=== PATIENT | female | born 1985 | race Caucasian/White ===

== ENCOUNTER 2022-05-22 14:10 | Inpatient (IN) ==
[2022-05-22] MEDS ORDERED: SODIUM CHLORIDE 0.9% 1000ML 500 ML IV ONE (14:31)
--- NOTE | 2022-05-22 14:37 | Emergency Department Note ---
Impression & Plan Left-sided weakness, Leukopenia ED Provider Note NAME: LIS VÁZQUEZ AGE: 36 SEX: F : 1985 ARRIVES VIA: Walk-In INFORMANT: Patient ED PROVIDER(S): Jovi Shelby DO CHIEF COMPLAINT: left sided weakness HPI: Patient is a 36-year-old female who went to bed last night around 9 PM. She had no issues prior to this. When she woke up this morning she noted that she was having left-sided arm and leg weakness. She could not walk. She became very anxious and worked up and started having chest pain and shortness of breath. This gradually improved. She denies any headache or change in vision. She is noticing some trouble talking. No dysuria, urgency, or frequency. She notes left-sided face does not feel normal. She has never had this before. No other medical problems. ROS: See above HPI for pertinent positives & negatives. A total of 10 systems reviewed and were otherwise negative. PAST MEDICAL HISTORY:See Below PAST SURGICAL HISTORY:See Below FAMILY HISTORY:See Below SOCIAL HISTORY:See Below HOME MEDICATIONS:See Below ALLERGIES:See Below VITALS:See Below PHYSICAL EXAMINATION: GENERAL: Sitting up in bed, alert, well appearing, well nourished, no distress, non-toxic EYE EXAM: normal conjunctiva. OROPHARYNX: no exudate, no erythema, lips, buccal mucosa, and tongue normal and mucous membranes are moist NECK: supple, no nuchal rigidity, no adenopathy, non-tender LUNGS: Clear to auscultation. Normal chest wall mechanics HEART: no murmurs, S1 normal and S2 normal ABDOMEN: abdomen soft, non-tender, normo-active bowel sounds, no masses, no rebound or guarding. UPPER EXTREMITIES: upper extremities are grossly normal. LOWER EXTREMITIES: No pitting edema. NEURO EXAM: Normal sensorium, cranial nerves II-XII intact, normal speech, with left upper and left lower extremity strength is a 4/5. Paresthesias on the left side of face MEDICAL DECISION MAKING: Patient is a 36-year-old female who presents the ER for left-sided weakness which was present when she woke up this morning. She went to bed around 9:00 last night. IVs were established blood work was obtained. Labs show mild leukopenia 4000. No significant anemia. INR was unremarkable. BMP along with LFTs bilirubin and was negative. was negative. Patient was updated bedside. Discussed with the hospitalist and admitted for further work-up. Not a TNKase candidate due to prolonged duration and CT angios of the head and neck were negative for any LVO. Triage Nursing notes reviewed. Limited review of prior medical records performed Vital Signs: reviewed and remarkable for hypotension Differential diagnosis: Differential Diagnosis includes but is not limited to ischemic Stroke, hemorrhagic stroke, bells palsy, mass, neoplasm, migraine headache, seizure, subarachnoid hemorrhage, TIA, and transient global amnesia. ER treatment provided: See below Diagnostics interpreted by me: ECG: Sinus rhythm rate 68 Normal axis No PVCs T wave version V1 V2 QTC 414 Cardiac Monitoring: An order was placed for continuous cardiac monitoring. The monitor shows a rate of 70 with sinus rhythm. Laboratory studies: As stated above and show below. Imaging studies: CT angio head and neck were negative Consultation(s): Discussed with [facility] hospitalist for further evaluation Dr. Pinzon Procedures: none Critical Care: None Past Med/Surg History Surgical History (Updated 05/22/22 @ 17:08 by Daisy Rubi PA-C) No history of previous surgery Family History Father Diabetes Social History Smoking Status: Never smoker Preferred Language: Portuguese Feels Safe at Home: Yes Allergies Allergies Allergy/AdvReac Type Severity Reaction Status Date / Time No Known Allergies Allergy Unverified 05/22/22 15:30 Home Meds Home Medications Medication Instructions Recorded Confirmed No Known Home Medications 01/04/22 05/22/22 Results & Data (ED) Vital Signs Vital Signs - 24 hr 05/22/22 14:13 05/22/22 14:57 05/22/22 14:57 Temperature 37.3 C Temperature Source Temporal Artery Scan Pulse Rate 74 Pulse Rate [Apical] 70 Pulse Rhythm [Apical] Pulse Strength [Apical] Respiratory Rate 18 20 Respiratory Effort / Characteristics Non-Labored Respiratory Depth Normal Respiratory Pattern Regular Blood Pressure 98/71 L Blood Pressure [Right Arm] 113/79 Blood Pressure Mean 80 Blood Pressure Mean [Right Arm] 90 Pulse Oximetry 96 96 96 Oxygen Delivery Method Room Air Room Air Room Air Sepsis Recent Fever Within 48 Hours No Sepsis New/Unexplained Change in Mental Status No Sepsis Action Taken by Nursing No Action Required 05/22/22 16:00 05/22/22 17:30 05/22/22 20:40 Temperature Temperature Source Pulse Rate Pulse Rate [Apical] 67 67 63 Pulse Rhythm [Apical] Regular Pulse Strength [Apical] Normal Respiratory Rate 16 18 14 Respiratory Effort / Characteristics Non-Labored Spontaneous Respiratory Depth Normal Respiratory Pattern Regular Blood Pressure Blood Pressure [Right Arm] 113/79 112/77 112/71 Blood Pressure Mean Blood Pressure Mean [Right Arm] 90 88 84 Pulse Oximetry 97 96 97 Oxygen Delivery Method Room Air Sepsis Recent Fever Within 48 Hours Sepsis New/Unexplained Change in Mental Status Sepsis Action Taken by Nursing Laboratory Data Result diagrams: 05/22/22 14:40 05/22/22 14:40 Lab Results 05/22/22 05/22/22 05/22/22 Range/Units 14:40 14:40 14:40 WBC 4.75 L (4.8-10.8) K/ul RBC 4.57 (3.93-5.22) M/uL Hgb 13.9 (12.0-16.0) g/dl POC Hgb (12.0-16.0) g/dl Hct 39.8 (34.1-44.9) % POC Hct (37-47) % MCV 87.1 (80.0-100.0) fL MCH 30.4 (25.0-34.0) pg MCHC 34.9 (32.0-36.0) g/dL RDW Std Deviation 40.1 (36.4-46.3) fL RDW Coeff of Belia 12.5 (11.5-14.5) % Plt Count 273 (130-400) K/uL MPV 9.6 (9.4-12.3) fL Immature Gran % (Auto) 0.0 % Neut % (Auto) 58.0 % Lymph % (Auto) 30.3 % [place] % (Auto) 7.2 % Eos % (Auto) 3.4 % Baso % (Auto) 1.1 % Neut # (Auto) 2.76 (1.4-6.5) K/uL Lymph # (Auto) 1.44 (1.2-3.4) K/uL [place] # (Auto) 0.34 (0.24-0.82) K/uL Eos # (Auto) 0.16 (0-0.50) K/uL Baso # (Auto) 0.05 (0-0.2) K/uL Immature Gran # (Auto) 0.00 (0.00-0.02) K/uL PT 11.0 (9.0-12.0) Seconds INR 1.0 (0.9-1.1) APTT 25.0 (21.0-31.0) Seconds PTT Ratio 0.9 POC Sodium (135-144) mmol/L Sodium 139 (136-145) mmol/L POC Potassium (3.3-5.0) mmol/L Potassium 4.1 (3.5-5.1) mmol/L POC Chloride (101-112) mmol/L Chloride 103 (98-107) mmol/L Carbon Dioxide 28 (21-32) mmol/L POC Total CO2 (24-31) mmol/L Anion Gap 8 (3-11) POC Anion Gap (16-25) mmol/L POC BUN (7-18) mg/dl BUN 13 (6-23) mg/dl Creatinine 0.71 (0.6-1.2) mg/dl POC Creatinine (0.6-1.3) mg/dl Est Cr Clr Drug Dosing 116.7 ml/min Est GFR ( Amer) 128.8 ml/min Est GFR (Non-Af Amer) 111.1 ml/min BUN/Creatinine Ratio 18.3 (10-20) Glucose 96 (70-99(Fasting)) mg/dl POC Glucose (other) (70-99) mg/dl Calcium 10.0 (8.5-10.1) mg/dl POC Ioniz Calcium Yeimy (1.12-1.32) mmol/l Magnesium 2.1 (1.7-2.4) mg/dl Total Bilirubin 0.5 (0.2-1.0) mg/dl AST 21 (13-39) U/L ALT 28 (7-52) U/L Alkaline Phosphatase 70 (34-104) U/L Troponin I High Sens < 2.3 (0-14) pg/ml Total Protein 8.2 (6.0-8.3) gm/dl Albumin 4.7 (3.4-5.0) gm/dl Globulin 3.5 (2.5-4.0) gm/dl Albumin/Globulin Ratio 1.3 (0.9-2) Urine Test (Negative) Anaplasma Smear Babesia Smear Lyme Disease IgG Ab (Negative) Lyme Disease IgM Ab (Negative) SARS-CoV-2, RNA, NAAT 05/22/22 05/22/22 05/22/22 Range/Units 14:40 14:40 14:42 WBC (4.8-10.8) K/ul RBC (3.93-5.22) M/uL Hgb (12.0-16.0) g/dl POC Hgb 13.9 (12.0-16.0) g/dl Hct (34.1-44.9) % POC Hct 41 (37-47) % MCV (80.0-100.0) fL MCH (25.0-34.0) pg MCHC (32.0-36.0) g/dL RDW Std Deviation (36.4-46.3) fL RDW Coeff of Belia (11.5-14.5) % Plt Count (130-400) K/uL MPV (9.4-12.3) fL Immature Gran % (Auto) % Neut % (Auto) % Lymph % (Auto) % [place] % (Auto) % Eos % (Auto) % Baso % (Auto) % Neut # (Auto) (1.4-6.5) K/uL Lymph # (Auto) (1.2-3.4) K/uL [place] # (Auto) (0.24-0.82) K/uL Eos # (Auto) (0-0.50) K/uL Baso # (Auto) (0-0.2) K/uL Immature Gran # (Auto) (0.00-0.02) K/uL PT (9.0-12.0) Seconds INR (0.9-1.1) APTT (21.0-31.0) Seconds PTT Ratio POC Sodium 141 (135-144) mmol/L Sodium (136-145) mmol/L POC Potassium 4.0 (3.3-5.0) mmol/L Potassium (3.5-5.1) mmol/L POC Chloride 102 (101-112) mmol/L Chloride (98-107) mmol/L Carbon Dioxide (21-32) mmol/L POC Total CO2 28 (24-31) mmol/L Anion Gap (3-11) POC Anion Gap 16.0 (16-25) mmol/L POC BUN 12 (7-18) mg/dl BUN (6-23) mg/dl Creatinine (0.6-1.2) mg/dl POC Creatinine 0.7 (0.6-1.3) mg/dl Est Cr Clr Drug Dosing ml/min Est GFR ( Amer) ml/min Est GFR (Non-Af Amer) ml/min BUN/Creatinine Ratio (10-20) Glucose (70-99(Fasting)) mg/dl POC Glucose (other) 102 H (70-99) mg/dl Calcium (8.5-10.1) mg/dl POC Ioniz Calcium Yeimy 1.22 (1.12-1.32) mmol/l Magnesium (1.7-2.4) mg/dl Total Bilirubin (0.2-1.0) mg/dl AST (13-39) U/L ALT (7-52) U/L Alkaline Phosphatase (34-104) U/L Troponin I High Sens (0-14) pg/ml Total Protein (6.0-8.3) gm/dl Albumin (3.4-5.0) gm/dl Globulin (2.5-4.0) gm/dl Albumin/Globulin Ratio (0.9-2) Urine Test (Negative) Anaplasma Smear See Comment Babesia Smear See Comment Lyme Disease IgG Ab Negative (Negative) Lyme Disease IgM Ab Equivocal A (Negative) SARS-CoV-2, RNA, NAAT 05/22/22 05/22/22 05/22/22 Range/Units 15:05 15:57 17:25 WBC (4.8-10.8) K/ul RBC (3.93-5.22) M/uL Hgb (12.0-16.0) g/dl POC Hgb (12.0-16.0) g/dl Hct (34.1-44.9) % POC Hct (37-47) % MCV (80.0-100.0) fL MCH (25.0-34.0) pg MCHC (32.0-36.0) g/dL RDW Std Deviation (36.4-46.3) fL RDW Coeff of Belia (11.5-14.5) % Plt Count (130-400) K/uL MPV (9.4-12.3) fL Immature Gran % (Auto) % Neut % (Auto) % Lymph % (Auto) % [place] % (Auto) % Eos % (Auto) % Baso % (Auto) % Neut # (Auto) (1.4-6.5) K/uL Lymph # (Auto) (1.2-3.4) K/uL [place] # (Auto) (0.24-0.82) K/uL Eos # (Auto) (0-0.50) K/uL Baso # (Auto) (0-0.2) K/uL Immature Gran # (Auto) (0.00-0.02) K/uL PT (9.0-12.0) Seconds INR (0.9-1.1) APTT (21.0-31.0) Seconds PTT Ratio POC Sodium (135-144) mmol/L Sodium (136-145) mmol/L POC Potassium (3.3-5.0) mmol/L Potassium (3.5-5.1) mmol/L POC Chloride (101-112) mmol/L Chloride (98-107) mmol/L Carbon Dioxide (21-32) mmol/L POC Total CO2 (24-31) mmol/L Anion Gap (3-11) POC Anion Gap (16-25) mmol/L POC BUN (7-18) mg/dl BUN (6-23) mg/dl Creatinine (0.6-1.2) mg/dl POC Creatinine (0.6-1.3) mg/dl Est Cr Clr Drug Dosing ml/min Est GFR ( Amer) ml/min Est GFR (Non-Af Amer) ml/min BUN/Creatinine Ratio (10-20) Glucose (70-99(Fasting)) mg/dl POC Glucose (other) (70-99) mg/dl Calcium (8.5-10.1) mg/dl POC Ioniz Calcium Yeimy (1.12-1.32) mmol/l Magnesium (1.7-2.4) mg/dl Total Bilirubin (0.2-1.0) mg/dl AST (13-39) U/L ALT (7-52) U/L Alkaline Phosphatase (34-104) U/L Troponin I High Sens (0-14) pg/ml Total Protein (6.0-8.3) gm/dl Albumin (3.4-5.0) gm/dl Globulin (2.5-4.0) gm/dl Albumin/Globulin Ratio (0.9-2) Urine Test Negative (Negative) Anaplasma Smear Babesia Smear Lyme Disease IgG Ab (Negative) Lyme Disease IgM Ab (Negative) SARS-CoV-2, RNA, NAAT Cancelled NEGATIVE Administered Medications Discontinued Medications Sodium Chloride (Nss 1000ml) 500 mls @ 999 mls/hr IV .Q31M ONE Stop: 05/22/22 15:01 Last Infusion: 05/22/22 16:00 Dose: 0 mls/hr Documented By: Admin: 05/22/22 15:04 Dose: 999 mls/hr Documented By: KENNETH Sodium Chloride (Nss 1000ml) 1,000 mls @ 999 mls/hr IV .Q1H1M ONE Stop: 05/22/22 15:43 Last Infusion: 05/22/22 16:00 Dose: 0 mls/hr Documented By: Admin: 05/22/22 15:05 Dose: 999 mls/hr Documented By: KENNETH Ioversol (Optiray 320 125ml) 119 ml IV ONCE ONE Stop: 05/22/22 14:46 Last Admin: 05/22/22 14:47 Dose: 119 ml Documented By: BOB Imaging Data Radiologist's Impression: Chest X-Ray 05/22/22 14:31 XR chest 1V portable CLINICAL HISTORY: Stroke Like Symptoms. Left-sided weakness COMPARISON STUDY: 07/16/2011 TECHNIQUE: 1 view of the chest FINDINGS: Single frontal view of the chest demonstrates the cardiomediastinal silhouette to be within normal limits. The lungs are clear of alveolar opacities. There is no evidence for pleural effusion. There is no evidence for vascular congestion. There is no acute osseous pathology. IMPRESSION: 1. No acute cardiopulmonary disease. ACT 112: Negative or not required by law. Electronically signed by: Andrew Nicholas M.D. 05/22/2022 3:[address] 05/22/22 14:31 CT head/brain wo con CLINICAL HISTORY: Stroke Like Symptoms . Left-sided weakness and left facial droop COMPARISON STUDY: No previous studies for comparison. CT DOSE: TECHNIQUE: Standard CT of the Brain was performed without IV contrast. A dose lowering technique was utilized adhering to the principles of ALARA. FINDINGS: Extraaxial space: There is no evidence for subdural hematoma. There are no extra-axial fluid collections. Ventricles and cisterns: The ventricles are normal in size and configuration. There is no evidence for midline shift or mass effect. Parenchyma: There is no subarachnoid or intraparenchymal hemorrhage. There is no evidence for an acute infarct or cerebral edema. There is homogeneous attenuation of the brain parenchyma. There are no gross mass lesions. Osseous structures: There is no evidence for an acute fracture. The visualized paranasal sinuses are clear. The mastoid air cells are clear bilaterally. Soft tissues: There is no evidence for focal soft tissue swelling. IMPRESSION: 1. No acute intracerebral pathology. ACT 112: Negative or not required by law. Electronically signed by: Andrew Nicholas M.D. 05/22/2022 3:02 PM Head CTA 05/22/22 14:31 CT angio neck with con, CT angio head w con CLINICAL HISTORY: 36 years-old Female with Stroke Like Symptoms. Acute strokelike symptoms COMPARISON STUDY: Head CT 05/22/2022, 01/04/2022 TECHNIQUE: Following the IV administration of 119 mL of Optiray, CT angiogram of the head and neck was performed from the aortic arch to the skull base. Images are reviewed in the axial, sagittal, and coronal planes. 3-D MIPS images are created and assessed. IV contrast was administered without complication. All measurements were calculated based on NASCET criteria. A dose lowering technique was utilized adhering to the principles of ALARA. CT DOSE: 963.82 mGy.cm FINDINGS: Patent innominate and imaged subclavian arteries. The common and internal carotid arteries are widely patent. The middle and anterior cerebral arteries are widely patent. Developmentally diminutive right A1 segment. The vertebral arteries are patent bilaterally. The basilar and posterior cerebral arteries are widely patent. origin of the right posterior cerebral artery. No aneurysm, dissection, high-grade stenosis or arterial occlusion. The cerebral venous sinuses are widely patent. There is no abnormal intracranial enhancement. The lung apices are clear without pneumothorax. Unremarkable soft tissues. The patient is edentulous. No acute fracture. Straightening of the normal cervical lordosis. IMPRESSION:Unremarkable CTA of the head and neck. ACT 112: Negative or not required by law. The above report was generated using voice recognition software. It may contain grammatical, syntax or spelling errors. Electronically signed by: Graeme Ellington M.D. 05/22/2022 3:15 PM Neck CTA 05/22/22 14:31 CT angio neck with con, CT angio head w con CLINICAL HISTORY: 36 years-old Female with Stroke Like Symptoms. Acute strokelike symptoms COMPARISON STUDY: Head CT 05/22/2022, 01/04/2022 TECHNIQUE: Following the IV administration of 119 mL of Optiray, CT angiogram of the head and neck was performed from the aortic arch to the skull base. Images are reviewed in the axial, sagittal, and coronal planes. 3-D MIPS images are created and assessed. IV contrast was administered without complication. All measurements were calculated based on NASCET criteria. A dose lowering technique was utilized adhering to the principles of ALARA. CT DOSE: 963.82 mGy.cm FINDINGS: Patent innominate and imaged subclavian arteries. The common and internal carotid arteries are widely patent. The middle and anterior cerebral arteries are widely patent. Developmentally diminutive right A1 segment. The vertebral arteries are patent bilaterally. The basilar and posterior cerebral arteries are widely patent. origin of the right posterior cerebral artery. No aneurysm, dissection, high-grade stenosis or arterial occlusion. The cerebral venous sinuses are widely patent. There is no abnormal intracranial enhancement. The lung apices are clear without pneumothorax. Unremarkable soft tissues. The patient is edentulous. No acute fracture. Straightening of the normal cervical lordosis. IMPRESSION:Unremarkable CTA of the head and neck. ACT 112: Negative or not required by law. The above report was generated using voice recognition software. It may contain grammatical, syntax or spelling errors. Electronically signed by: Graeme Ellington M.D. 05/22/2022 3:15 PM Discharge Plan Visit Data Chief Complaint: Stroke/CVA Symptoms Stated Complaint: SOB ED Provider: Jovi Shelby Discharge Problem: Left-sided weakness, Leukopenia Forms Stand Alone Forms: [employer] Prescriptions Prescriptions: No Action No Known Home Medications Referrals Referrals: PCP,NO [Primary Care Provider] -
[2022-05-22] MEDS ORDERED: SODIUM CHLORIDE 0.9% 1000ML 1,000 ML IV ONE (14:43)
[2022-05-22] MEDS ORDERED: OPTIRAY 320 125ml IV ONE (14:45)
[2022-05-22 14:50] LABS: Basophils # (auto) 0.05 K/uL (0-0.2); Basophils % (auto) 1.1 %; Eosinophils # (auto) 0.16 K/uL (0-0.50); Eosinophils % (auto) 3.4 %; Hematocrit (blood only) 39.8 % (34.1-44.9); Hemoglobin 13.9 g/dl (12.0-16.0); Lymphocytes # (auto) 1.44 K/uL (1.2-3.4); Lymphocytes % (auto) 30.3 %; Mean Corpuscular Hemoglobin 30.4 pg (25.0-34.0); Mean Corpuscular Hgb Conc 34.9 g/dL (32.0-36.0); Mean Corpuscular Volume 87.1 fL (80.0-100.0); Mean Platelet Volume 9.6 fL (9.4-12.3); Monocytes # (auto) 0.34 K/uL (0.24-0.82); Monocytes % (auto) 7.2 %; Neutrophils # (auto) 2.76 K/uL (1.4-6.5); Platelet Count 273 K/uL (130-400); RDW Coefficient of Variation 12.5 % (11.5-14.5); RDW Standard Deviation 40.1 fL (36.4-46.3); Red Blood Count 4.57 M/uL (3.93-5.22); White Blood Count 4.75 K/ul (4.8-10.8)
[2022-05-22 14:54] LABS: iSTAT Creatinine 0.7 mg/dl (0.6-1.3); iSTAT Hemoglobin 13.9 g/dl (12.0-16.0); iSTAT Ionized Calcium 1.22 mmol/l (1.12-1.32)
--- NOTE | 2022-05-22 15:05 | CT Scan Report ---
CT head/brain wo con CLINICAL HISTORY: Stroke Like Symptoms . Left-sided weakness and left facial droop COMPARISON STUDY: No previous studies for comparison. CT DOSE: TECHNIQUE: Standard CT of the Brain was performed without IV contrast. A dose lowering technique was utilized adhering to the principles of ALARA. FINDINGS: Extraaxial space: There is no evidence for subdural hematoma. There are no extra-axial fluid collecti ons. Ventricles and cisterns: The ventricles are normal in size and configuration. There is no evidence fo r midline shift or mass effect. Parenchyma: There is no subarachnoid or intraparenchymal hemorrhage. There is no evidence for an acut e infarct or cerebral edema. There is homogeneous attenuation of the brain parenchyma. There are no g ross mass lesions. Osseous structures: There is no evidence for an acute fracture. The visualized paranasal sinuses are clear. The mastoid air cells are clear bilaterally. Soft tissues: There is no evidence for focal soft tissue swelling. IMPRESSION: 1. No acute intracerebral pathology. ACT 112: Negative or not required by law. Electronically signed by: Andrew Nicholas M.D. 05/22/2022 3:02 PM
--- NOTE | 2022-05-22 15:05 | XRay Report ---
XR chest 1V portable CLINICAL HISTORY: Stroke Like Symptoms. Left-sided weakness COMPARISON STUDY: 07/16/2011 TECHNIQUE: 1 view of the chest FINDINGS: Single frontal view of the chest demonstrates the cardiomediastinal silhouette to be within normal li mits. The lungs are clear of alveolar opacities. There is no evidence for pleural effusion. There is no evidence for vascular congestion. There is no acute osseous pathology. IMPRESSION: 1. No acute cardiopulmonary disease. ACT 112: Negative or not required by law. Electronically signed by: Andrew Nicholas M.D. 05/22/2022 3:03 PM
[2022-05-22 15:09] LABS: Partial Thromboplastin Ratio 0.9
--- NOTE | 2022-05-22 15:16 | CT Scan Report ---
CT angio neck with con, CT angio head w con CLINICAL HISTORY: 36 years-old Female with Stroke Like Symptoms. Acute strokelike symptoms COMPARISON STUDY: Head CT 05/22/2022, 01/04/2022 TECHNIQUE: Following the IV administration of 119 mL of Optiray, CT angiogram of the head and neck wa s performed from the aortic arch to the skull base. Images are reviewed in the axial, sagittal, and c oronal planes. 3-D MIPS images are created and assessed. IV contrast was administered without complic ation. All measurements were calculated based on NASCET criteria. A dose lowering technique was util ized adhering to the principles of ALARA. CT DOSE: 963.82 mGy.cm FINDINGS: Patent innominate and imaged subclavian arteries. The common and internal carotid arteries are widely patent. The middle and anterior cerebral arteries are widely patent. Developmentally diminutive righ t A1 segment. The vertebral arteries are patent bilaterally. The basilar and posterior cerebral arter ies are widely patent. origin of the right posterior cerebral artery. No aneurysm, dissection, high-grade stenosis or arterial occlusion. The cerebral venous sinuses are widely patent. There is no abnormal intracranial enhancement. The lung apices are clear without pneumothorax. Unremarkable soft tissues. The patient is edentulous. No acute fracture. Straightening of the normal cervical lordosis. IMPRESSION:Unremarkable CTA of the head and neck. ACT 112: Negative or not required by law. The above report was generated using voice recognition software. It may contain grammatical, syntax o r spelling errors. Electronically signed by: Graeme Ellington M.D. 05/22/2022 3:15 PM
[2022-05-22 15:20] LABS: Troponin I High Sensitivity < 2.3 pg/ml (0-14)
[2022-05-22 15:23] LABS: Alanine Aminotransferase 28 U/L (7-52); Albumin Globulin Ratio 1.3 (0.9-2); Albumin Level 4.7 gm/dl (3.4-5.0); Alkaline Phosphatase 70 U/L (34-104); Anion Gap 8 (3-11); Aspartate Aminotransferase 21 U/L (13-39); BUN Creatinine Ratio 18.3 (10-20); Bilirubin,Total 0.5 mg/dl (0.2-1.0); Blood Urea Nitrogen 13 mg/dl (6-23); Carbon Dioxide 28 mmol/L (21-32); Chloride 103 mmol/L (98-107); Creatinine Clr Calc Pharmacy 116.7 ml/min; Est GFR (African American) 128.8 ml/min; Est GFR (Non-African American) 111.1 ml/min; Globulin 3.5 gm/dl (2.5-4.0); Glucose 96 mg/dl (70-99(Fasting)); Magnesium 2.1 mg/dl (1.7-2.4); Potassium 4.1 mmol/L (3.5-5.1); Sodium 139 mmol/L (136-145); Total Protein 8.2 gm/dl (6.0-8.3)
--- NOTE | 2022-05-22 16:55 | History & Physical Report ---
Date of Service May 22, 2022 Assessment & Plan (1) Seizure disorder: (2) Left-sided weakness: (3) Joint pain: (4) Lymphopenia: Plan: - Admit to PCU for observation - Stroke order set completed, no indication for thrombolytic as occurred sometime hours before 10am today. - CTA head and neck reviewed and are negative for acute findings - MRI brain w/wo contrast ordered - Check 2D echo complete - Neurology consulted, will start on aspirin 81 mg daily, check lipid panel and a1c for completeness - Concern for tick borne illnesses with lymphopenia, no thrombocytopenia, with joint tenderness. No other acute lab abnormalities - Neurology consulted - Hx of seizure disorder as per HPI concerning as she has had 2 seizures within the past 4 weeks. Does not take any antiepileptic medication, nor has sought out medical care for seizure in the past. Will await neuro recs regarding medication and if the pt willing to take this/affordable - Check EEG - Fall precautions, seizure precautions - PT/OT consults placed DVT ppx - teds, scds CODE: DNR/DNI Dispo: From home, likely to remain in the hospital x 1-2 days History of Present Illness Primary Care Provider: NO PCP This is a 36 yo Episcopal female with PMhx of seizure disorder since age 4, not on any medication and has not seen a general practitioner for such. She had a period of time where she didn't have any seizures until being in her 20s. Most recently she experience a seizure 4 and 2 weeks ago where she remained at home. After both episodes she was unable to walk for about 3-3.5 hours. She is tired and feels ill, then slowly returns to her normal self. This morning the patient woke up and didn't feel herself. Her mother, Yolanda, is present at bedside and helps provide history. Pt took a nap this morning and around 10 am woke up again and reported not feeling right, at that point she was having chest pain, the left arm hurt, and left leg hurt and still does. She reports is as a 9/10 and constant, worse with movement. Her joints also hurt moreso than her muscles. Pt denies recent tick bite, last known was around age 22-23. She seems to have difficulty understanding [place] or at least saying things in [place] back to providers in the room. Family Hx: no known history of seizure disorders, cancers, heart disease, or strokes. Father recently diagnosed with diabetes. Surgical Hx: No surgical hx Allergies Allergy/AdvReac Type Severity Reaction Status Date / Time No Known Allergies Allergy Unverified 05/22/22 15:30 Home Medications Medication Instructions Recorded Confirmed Type No Known Home Medications 01/04/22 05/22/22 History Past Med/Surg History Surgical History (Updated 05/22/22 @ 17:08 by Daisy Rubi PA-C) No history of previous surgery Family History Father Diabetes Social History Smoking Status: Never smoker Preferred Language: C[place]ra[place] Feels Safe at Home: Yes Review of Systems Review of Systems: Constitutional: No fever, sweats or chills, no recent viral illnesses, no headache Eyes: No diplopia, no worsening or blurred vision ENT: normal hearing, no trouble swallowing Respiratory: No cough, sputum, dyspnea at rest or on exertion Cardiovascular: No chest pain, tightness or palpitations Abdomen: No pain, nausea, vomiting, diarrhea or constipation Musculoskeletal: + Diffuse left sided joint pain in shoulders, elbow, hip, knee and ankle. No calf pain or swelling Neurologic: + left sided weakness, difficulty moving extremities due to pain as well, no numbness/tingling, difficulty walking due to pain, no balance problems Psychiatric: No anxiety or depression Skin: No rash or itch Physical Exam Physical Exam: General: awake, alert, no apparent distress, Episcopal Head: Normocephalic, atraumatic ENT: PERRL, EOMI, no pharyngeal exudate, mucous membranes moist Chest: Please see attending addendum Cardiac: " Abdominal: " Extremities: Normal inspection, no peripheral edema or erythema, calfs nontender to palpation Psych: Normal mood and affect Neuro: AAO x 3, strength intact bilaterally and rated 4/5 in the left compared to 5/5 in the right upper and lower extremities. Negative pronator drift. Speech is clear, no peripheral sensory deficits Results & Data Results & Data ([facility]) Vital Signs (Past 12 Hours) Vital Signs Temp Pulse Pulse Resp BP BP Pulse Ox 05/22/22 16:00 67 16 113/79 97 05/22/22 14:57 70 20 113/79 96 05/22/22 14:57 96 05/22/22 14:13 37.3 C 74 18 98/71 L 96 O2 Del Method 05/22/22 16:00 05/22/22 14:57 Room Air 05/22/22 14:57 Room Air 05/22/22 14:13 Room Air Laboratory Results 05/22/22 05/22/22 05/22/22 15:57 15:05 14:42 WBC RBC Hgb POC Hgb 13.9 Hct POC Hct 41 MCV MCH MCHC RDW Std Deviation RDW Coeff of Belia Plt Count MPV Immature Gran % (Auto) Neut % (Auto) Lymph % (Auto) Edgar % (Auto) Eos % (Auto) Baso % (Auto) Neut # (Auto) Lymph # (Auto) Edgar # (Auto) Eos # (Auto) Baso # (Auto) Immature Gran # (Auto) PT INR APTT PTT Ratio POC Sodium 141 Sodium POC Potassium 4.0 Potassium POC Chloride 102 Chloride Carbon Dioxide POC Total CO2 28 Anion Gap POC Anion Gap 16.0 POC BUN 12 BUN Creatinine POC Creatinine 0.7 Est Cr Clr Drug Dosing Est GFR ( Amer) Est GFR (Non-Af Amer) BUN/Creatinine Ratio Glucose POC Glucose (other) 102 H Calcium POC Ioniz Calcium Yeimy 1.22 Magnesium Total Bilirubin AST ALT Alkaline Phosphatase Troponin I High Sens Total Protein Albumin Globulin Albumin/Globulin Ratio SARS-CoV-2, RNA, NAAT NEGATIVE Cancelled 05/22/22 05/22/22 05/22/22 14:40 14:40 14:40 WBC 4.75 L RBC 4.57 Hgb 13.9 POC Hgb Hct 39.8 POC Hct MCV 87.1 MCH 30.4 MCHC 34.9 RDW Std Deviation 40.1 RDW Coeff of Belia 12.5 Plt Count 273 MPV 9.6 Immature Gran % (Auto) 0.0 Neut % (Auto) 58.0 Lymph % (Auto) 30.3 Edgar % (Auto) 7.2 Eos % (Auto) 3.4 Baso % (Auto) 1.1 Neut # (Auto) 2.76 Lymph # (Auto) 1.44 Edgar # (Auto) 0.34 Eos # (Auto) 0.16 Baso # (Auto) 0.05 Immature Gran # (Auto) 0.00 PT 11.0 INR 1.0 APTT 25.0 PTT Ratio 0.9 POC Sodium Sodium 139 POC Potassium Potassium 4.1 POC Chloride Chloride 103 Carbon Dioxide 28 POC Total CO2 Anion Gap 8 POC Anion Gap POC BUN BUN 13 Creatinine 0.71 POC Creatinine Est Cr Clr Drug Dosing 116.7 Est GFR ( Amer) 128.8 Est GFR (Non-Af Amer) 111.1 BUN/Creatinine Ratio 18.3 Glucose 96 POC Glucose (other) Calcium 10.0 POC Ioniz Calcium Yeimy Magnesium 2.1 Total Bilirubin 0.5 AST 21 ALT 28 Alkaline Phosphatase 70 Troponin I High Sens < 2.3 Total Protein 8.2 Albumin 4.7 Globulin 3.5 Albumin/Globulin Ratio 1.3 SARS-CoV-2, RNA, NAAT Diagnostic Findings Chest X-Ray 05/22/22 14:31 XR chest 1V portable CLINICAL HISTORY: Stroke Like Symptoms. Left-sided weakness COMPARISON STUDY: 07/16/2011 TECHNIQUE: 1 view of the chest FINDINGS: Single frontal view of the chest demonstrates the cardiomediastinal silhouette to be within normal limits. The lungs are clear of alveolar opacities. There is no evidence for pleural effusion. There is no evidence for vascular congestion. There is no acute osseous pathology. IMPRESSION: 1. No acute cardiopulmonary disease. ACT 112: Negative or not required by law. Electronically signed by: Andrew Nicholas M.D. 05/22/2022 3:[address] 05/22/22 14:31 CT head/brain wo con CLINICAL HISTORY: Stroke Like Symptoms . Left-sided weakness and left facial droop COMPARISON STUDY: No previous studies for comparison. CT DOSE: TECHNIQUE: Standard CT of the Brain was performed without IV contrast. A dose lowering technique was utilized adhering to the principles of ALARA. FINDINGS: Extraaxial space: There is no evidence for subdural hematoma. There are no extra-axial fluid collections. Ventricles and cisterns: The ventricles are normal in size and configuration. There is no evidence for midline shift or mass effect. Parenchyma: There is no subarachnoid or intraparenchymal hemorrhage. There is no evidence for an acute infarct or cerebral edema. There is homogeneous attenuation of the brain parenchyma. There are no gross mass lesions. Osseous structures: There is no evidence for an acute fracture. The visualized paranasal sinuses are clear. The mastoid air cells are clear bilaterally. Soft tissues: There is no evidence for focal soft tissue swelling. IMPRESSION: 1. No acute intracerebral pathology. ACT 112: Negative or not required by law. Electronically signed by: Andrew Nicholas M.D. 05/22/2022 3:02 PM Head CTA 05/22/22 14:31 CT angio neck with con, CT angio head w con CLINICAL HISTORY: 36 years-old Female with Stroke Like Symptoms. Acute strokelike symptoms COMPARISON STUDY: Head CT 05/22/2022, 01/04/2022 TECHNIQUE: Following the IV administration of 119 mL of Optiray, CT angiogram of the head and neck was performed from the aortic arch to the skull base. Images are reviewed in the axial, sagittal, and coronal planes. 3-D MIPS images are created and assessed. IV contrast was administered without complication. All m easurements were calculated based on NASCET criteria. A dose lowering technique was utilized adhering to the principles of ALARA. CT DOSE: 963.82 mGy.cm FINDINGS: Patent innominate and imaged subclavian arteries. The common and internal carotid arteries are widely patent. The middle and anterior cerebral arteries are widely patent. Developmentally diminutive right A1 segment. The vertebral arteries are patent bilaterally. The basilar and posterior cerebral arteries are widely patent. origin of the right posterior cerebral artery. No aneurysm, dissection, high-grade stenosis or arterial occlusion. The cerebral venous sinuses are widely patent. There is no abnormal intracranial enhancement. The lung apices are clear without pneumothorax. Unremarkable soft tissues. The patient is edentulous. No acute fracture. Straightening of the normal cervical lordosis. IMPRESSION:Unremarkable CTA of the head and neck. ACT 112: Negative or not required by law. The above report was generated using voice recognition software. It may contain grammatical, syntax or spelling errors. Electronically signed by: Graeme Ellington M.D. 05/22/2022 3:15 PM Neck CTA 05/22/22 14:31 CT angio neck with con, CT angio head w con CLINICAL HISTORY: 36 years-old Female with Stroke Like Symptoms. Acute strokelike symptoms COMPARISON STUDY: Head CT 05/22/2022, 01/04/2022 TECHNIQUE: Following the IV administration of 119 mL of Optiray, CT angiogram of the head and neck was performed from the aortic arch to the skull base. Images are reviewed in the axial, sagittal, and coronal planes. 3-D MIPS images are created and assessed. IV contrast was administered without complication. All measurements were calculated based on NASCET criteria. A dose lowering technique was utilized adhering to the principles of ALARA. CT DOSE: 963.82 mGy.cm FINDINGS: Patent innominate and imaged subclavian arteries. The common and internal carotid arteries are widely patent. The middle and anterior cerebral arteries are widely patent. Developmentally diminutive right A1 segment. The vertebral arteries are patent bilaterally. The basilar and posterior cerebral arteries are widely patent. origin of the right posterior cerebral artery. No aneurysm, dissection, high-grade stenosis or arterial occlusion. The cerebral venous sinuses are widely patent. There is no abnormal intracranial enhancement. The lung apices are clear without pneumothorax. Unremarkable soft tissues. The patient is edentulous. No acute fracture. Straightening of the normal cervical lordosis. IMPRESSION:Unremarkable CTA of the head and neck. ACT 112: Negative or not required by law. The above report was generated using voice recognition software. It may contain grammatical, syntax or spelling errors. Electronically signed by: Graeme Ellington M.D. 05/22/2022 3:15 PM ECG Additional Comments: 22-MAY-2022 14:39:15 [facility]-EDSTAT ROUTINE RETRIEVAL Normal sinus rhythm Possible Left atrial enlargement RSR' or QR pattern in V1 suggests right ventricular conduction delay Borderline ECG When compared with ECG of 04-JAN-2022 20:43, RSR' pattern in V1 has replaced Incomplete right bundle branch block T wave inversion now evident in Anterior leads 25mm/s10mm/[id number]: [id number] by: SELF Unconfirmed Vent. rate 68 BPM NH interval 162 ms QRS duration 90 ms QT/QTc 390/414 ms Code Status & VTE Plan Code Status DNR/DNI - discussed with the patient and her mother at bedside in detail. Pt does not want resuscitation attempt or life prolonging measures. Supervising Physician Co-Signing Physician Notes Pt is a 36 y/o F with hx of seizure (untreated) admitted for acute onset of L arm and leg pain and weakness with L sided joint pain. PE: NAD, well developed HEENT: PERRLA, EOMI, normal conjunctiva Lungs: CTA, no wheezing or crackles Cardiac: Normal S1/S2, no murmur Abd: ND, soft, NT MSK: no sign of redness of the joints or sign of swelling but Severe TTP of the L shoulder, elbow and knee, no LE edema Neuro: CN II-XII intact, decreased strength of the LUE and LLE, normal sensation Psych: normal Affect, AAOx3 A/P: L sided weakness and pain: -could be 2/2 Lyme disease vs post ictal vs CVA -CTA head, neck and CT head: unremarkable -will get MRI brain, echo and EEG -will get labs for Lyme and anaplasmosis -Neurology consult - Q4h neuro check Agree with A/P by Daisy Rubi PA-C
[2022-05-22 18:23] LABS: Lyme Ab IgG w/WB Rflx Negative (Negative)
[2022-05-22 18:26] LABS: Lyme Ab IgM w/WB Rflx Equivocal (Negative)
[2022-05-22 19:12] LABS: Pregnancy Test, Urine Negative (Negative)
[2022-05-22] MEDS ORDERED: PHARMACIST DISCHARGE MED REC CONSULT PRN (22:17)
[2022-05-22] MEDS ORDERED: GADOBUTROL 65ML VIAL IV ONE (23:22)
--- NOTE | 2022-05-23 06:38 | Electrocardiogram Report ---
Test Reason : Blood Pressure : / mmHG Vent. Rate : 068 BPM Atrial Rate : 068 BPM P-R Int : 162 ms QRS Dur : 090 ms QT Int : 390 ms P-R-T Axes : 046 057 048 degrees QTc Int : 414 ms Normal sinus rhythm Possible Left atrial enlargement RSR' or QR pattern in V1 suggests right ventricular conduction delay Borderline ECG When compared with ECG of 04-JAN-2022 20:43, No significant change Confirmed by Kishore Saurez ([id number]) on 05/23/2022 6:38:06 AM Referred By: SELF Confirmed By:Kishore Suarez
[2022-05-23 06:43] LABS: Basophils # (auto) 0.06 K/uL (0-0.2); Basophils % (auto) 1.7 %; Eosinophils # (auto) 0.15 K/uL (0-0.50); Eosinophils % (auto) 4.2 %; Hematocrit (blood only) 34.9 % (34.1-44.9); Hemoglobin 11.9 g/dl (12.0-16.0); Lymphocytes # (auto) 1.07 K/uL (1.2-3.4); Mean Corpuscular Hemoglobin 30.1 pg (25.0-34.0); Mean Corpuscular Hgb Conc 34.1 g/dL (32.0-36.0); Mean Corpuscular Volume 88.1 fL (80.0-100.0); Mean Platelet Volume 9.6 fL (9.4-12.3); Monocytes % (auto) 8.4 %; Neutrophils # (auto) 1.99 K/uL (1.4-6.5); Neutrophils % (auto) 55.7 %; Platelet Count 237 K/uL (130-400); RDW Coefficient of Variation 12.4 % (11.5-14.5); RDW Standard Deviation 40.5 fL (36.4-46.3); Red Blood Count 3.96 M/uL (3.93-5.22); White Blood Count 3.57 K/ul (4.8-10.8)
[2022-05-23 06:59] LABS: Calcium 9.3 mg/dl (8.5-10.1); Chol HDL Ratio 3.9 (0-5); Creatinine Clr Calc Pharmacy 135.8 ml/min; Est GFR (African American) 137.1 ml/min; Est GFR (Non-African American) 118.3 ml/min; Potassium 3.8 mmol/L (3.5-5.1)
[2022-05-23 07:14] LABS: Estimated Average Glucose 103 mg/dl; Hemoglobin A1C 5.2 % (4.5-5.6)
--- NOTE | 2022-05-23 07:40 | Magnetic Resonance Report ---
MR brain wo/w con CLINICAL HISTORY: stroke like symptoms TECHNIQUE: Multiplanar and multisequence MR images of the brain were obtained prior to and following administration of gadolinium contrast. Comparison: Comparison is made to MRI brain 07/16/2011 FINDINGS: No abnormal restricted diffusion is identified. The white matter is unremarkable. The ventricular sys tem is normal in appearance. No mass or abnormal enhancement is seen. There is no mass effect or midl ine shift. There is no evidence of acute intraparenchymal hemorrhage. No extra axial fluid collection s are seen. The corpus callosum, pituitary gland, and cerebellar tonsils appear grossly unremarkable. Flow voids of the major intracranial arterial vessels are identified. The imaged portions of the para nasal sinuses, mastoid air cells, and orbits are unremarkable. IMPRESSION: No acute abnormalities. ACT 112: Negative or not required by law. Electronically signed by: Arnav Chandler M.D. 05/23/2022 7:38 AM
[2022-05-23 07:51] LABS: Estimated Average Glucose 100 mg/dl; Hemoglobin A1C 5.1 % (4.5-5.6)
--- NOTE | 2022-05-23 08:03 | Electroencephalogram ---
EEG Procedure Note Date of Service May 23, 2022 Start / End Times Start Time: 7:11 AM End Time: 7:31 AM Referring Physician Daisy Rubi History Seizure disorder, left-sided weakness Home Medication List Medication Instructions Recorded Confirmed Type No Known Home Medications 01/04/22 05/22/22 History Inpatient Medication List Discontinued Medications Gadobutrol (Gadobutrol 65ml Vial) 7 ml IV ONCE ONE Stop: 05/22/22 23:23 Last Admin: 05/22/22 23:23 Dose: 7 ml Documented By: IDALMIS Sodium Chloride (Nss 1000ml) 500 mls @ 999 mls/hr IV .Q31M ONE Stop: 05/22/22 15:01 Last Infusion: 05/22/22 16:00 Dose: 0 mls/hr Documented By: Admin: 05/22/22 15:04 Dose: 999 mls/hr Documented By: KENNETH Sodium Chloride (Nss 1000ml) 1,000 mls @ 999 mls/hr IV .Q1H1M ONE Stop: 05/22/22 15:43 Last Infusion: 05/22/22 16:00 Dose: 0 mls/hr Documented By: Admin: 05/22/22 15:05 Dose: 999 mls/hr Documented By: KENNETH Ioversol (Optiray 320 125ml) 119 ml IV ONCE ONE Stop: 05/22/22 14:46 Last Admin: 05/22/22 14:47 Dose: 119 ml Documented By: BOB Description This is a 21 electrode EEG with a single channel dedicated to limited EKG. The electrodes were placed in accordance with the International 10-20 system. There is a posterior dominant rhythm of 8 to 9 Hz which is symmetrically distributed and attenuates with eye opening. There is a normal anterior to posterior organization. Photic stimulation is unremarkable. Hyperventilation is not performed. There is a symmetric frontal beta rhythm. There is no focal or lateralized slowing. There are no epileptiform abnormalities. There are no sleep changes. Interpretation Normal-appearing awake/drowsy EEG. A normal EEG does not completely exclude a diagnosis of epilepsy. Further clinical correlation may be needed. [facility] [place] Procedure Codes Indication for Procedure (1) Seizure disorder: Neurology Neurology: 91820 EEG include record awake & drowsy
[2022-05-23] MEDS: ASPIRIN 81 MG ECTAB PO SCH (08:15)
--- NOTE | 2022-05-23 10:45 | Neurology Consultation ---
Date of Consultation May 23, 2022 Assessment & Plan (1) Left-sided weakness: (2) Seizure disorder: Plan 36-year-old Zoroastrian female with a history of epilepsy, not on seizure medication currently, continues to experience intermittent seizures, now presenting with left-sided weakness. Brain MRI negative for stroke or other acute process. No significant parenchymal abnormality although mesial temporal sclerosis may not be completely excluded as thin sections through the hippocampi were not completed. Normal-appearing EEG, although on further review, there are potential intermittent right temporal sharps. Patient's presentation seems consistent with Kade's paralysis or focal postictal weakness. Again, no evidence of acute or subacute stroke on MRI and her weakness occurs in the context of a history of untreated epilepsy. Although she may have focal onset seizures with secondary generalization, I am unable to completely exclude a primary generalized epilepsy at this point in time. I would recommend treatment with a seizure medication. Would recommend starting Keppra. Would give an oral loading dose of 1000 mg, followed by 500 mg p.o. every 12 hours. Would order a repeat brain MRI, without contrast, seizure protocol. Patient will need consultations with PT/OT. Patient's unremarkable brain MRI would tend to argue against an acute or subacute stroke. However, it would not be unreasonable to have her continue with daily low-dose aspirin for at least the next 3 months. The PFO as observed on recent echocardiography is likely not clinically significant. However, would also recommend checking a hypercoagulable panel. Would also consider obtaining a lower extremity ultrasound to rule out DVT. Patient may follow-up with either myself or one of our [facility]'s in neurology clinic in 3 to 4 weeks. May consider obtaining ambulatory EEG or possibly referring this patient to an epilepsy specialist at a tertiary center. History of Present Illness Reason for Consultation: stroke like sxs, sz? Requesting Physician: Daisy Rubi PA-C Attending Physician: Yumiko Gaona DO History of Present Illness The patient is a 36-year-old Zoroastrian female with a reported history of seizure disorder beginning in boiler tender, around age 4, with apparent resolution, followed by recurrence in her early 20s. The patient is a poor historian, her mother is at bedside who provides much of the history. Her seizures have been characterized by episodes of paralysis, speech arrest, associated level of awareness uncertain. No reported falls, collapse, or generalized tonic-clonic movements. Episodes are prolonged, lasting several hours according to her mother. No reported aura or early symptoms. Has had 2 episodes in the past month, beyond that, has had several episodes over the past few years. Her mother indicates that she had restarted a seizure medicine recently while they were down in [place] although the patient did not continue with this medication as she felt as if she no longer needed it. Neither the patient nor her mother knows the name of this medication. There is limited information regarding this patient's past medical history although both the patient and her mother deny any significant health related issues. She is single, no children, no immediate plans for . She had presented to the emergency department yesterday after she was found with left-sided weakness upon awakening in the morning, unable to walk, associated anxiety, as well as some chest pain and shortness of breath at that time. No associated headache. A CT of the head was negative for hemorrhage or acute process. A CT angiogram of the head and neck was unremarkable as well. A brain MRI was also normal. I did independently review these images. No restricted diffusion, no blooming artifact, no parenchymal abnormality on T2/FLAIR weighted imaging. No hydrocephalus, no Chiari malformation. 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 No associated cavernoma. Although the seizure protocol was not performed, the hippocampal formations abnormal signal bilaterally, the right hippocampus is perhaps slightly atrophic compared to the right but probably within normal limits. An EEG completed this morning was normal. Allergies Allergy/AdvReac Type Severity Reaction Status Date / Time No Known Allergies Allergy Unverified 05/22/22 15:30 Home Medications Medication Instructions Recorded Confirmed Type No Known Home Medications 01/04/22 05/22/22 History Patient History Surgical History (Updated 05/22/22 @ 17:08 by Daisy Rubi PA-C) No history of previous surgery Family History Father Diabetes Social History Smoking Status: Never smoker Hx Alcohol Use: No Hx Substance Use: No Preferred Language: Chinese Communication Ability: Effective Current Living Situation: Family Feels Safe at Home: Yes Safety Concerns: Feels Safe At This Time Assistive Devices: Wheelchair Review of Systems Constitutional: no fever Eyes: no blind spots and no diplopia Ear, Nose, Mouth, Throat: no hearing loss Respiratory: no cough and no dyspnea Cardiovascular: no chest pain and no palpitations Gastrointestinal: no nausea and no vomiting Genitourinary: no dysuria Musculoskeletal: no back pain, no neck pain and no myalgia Integumentary: no rash Neurologic: as per Subjective / HPI Psychiatric: no depression and no anxiety Hematologic / Lymphatic: no easy bleeding and no easy bruising Exam (Neuro) Constitutional: well developed and well nourished; no acute distress Eyes: normal visual orellana by confrontation, PERRL, normal accommodation and EOM intact bilaterally; no fundoscopic abnormality, no nystagmus and no papilledema Cardiovascular: Vessels: normal carotid upstroke; no carotid bruit Neurologic: Oriented to:: Person, Place and Time Memory: Short Term Intact and Remote Intact Attention: Span Intact and Concentration Intact Language: Naming Objects and Repeating Phrases Speech Fluency: negative Dysarthria Speech Aphasia: negative Aphasia Fund of Knowledge: Current Events, Past History and Vocabulary Cranial Nerves: Normal II (Visual orellana full to confrontation, visual acuity normal), III, IV, (Pupils equal round reactive to light and accommodation, eye movements normal), V (Facial sensation intact), VII (There is no facial droop or weakness), VIII (Hearing intact), IX, X (Palate elevates to midline), XI (Shoulder shrug intact) and XII (Tongue protrudes to midline) Motor Strength: negative Normal Lower Extremities, Normal Upper Extremities or Pronator Drift Motor Tone: Normal Lower Extremities and Normal Upper Extremities Muscle Bulk/Involuntary Movements: No Involuntary Movements; negative Muscle Atrophy Sensation: Light Touch Intact, Pain/Temperature Intact, Vibration Intact and Proprioception Intact Coordination: Normal; negative Limited Balance, Dysdiadochokinesia, Finger-Nose Abnormal or Heel-Carter Abnormal Deep Tendon Reflexes: Rt Triceps: 2+, Lt Triceps: 2+, Rt Biceps: 2+, Lt Biceps: 2+, Rt Brachioradialis: 2+, Lt Brachioradialis: 2+, Rt Patellar: 2+, Lt Patellar: 2+, Rt Ankle: 2+ and Lt Ankle: 2+ Special Tests: negative Babinski Present Gait: Normal Station and Gait Details: Patient exhibits mild weakness for the left arm and leg on examination. Results & Data ([facility]) Vital Signs (Past 12 Hours) Vital Signs Temp Pulse Pulse Resp BP Pulse Ox O2 Del Method 05/23/22 08:02 36.9 C 71 17 95/60 L 95 Room Air 05/23/22 07:45 63 05/23/22 03:28 37.0 C 69 18 104/66 96 Room Air Laboratory Results WBC 3.57, hemoglobin 11.9, hematocrit 34.9, MCV 88.1, platelet count 237, sodium 137, potassium 3.8, BUN 11, creatinine 0.61, glucose 86, hemoglobin A1c 5.1, calcium 9.3, AST 21, ALT 28, triglycerides 60, cholesterol 168, LDL 113, VLDL 12, HDL 43, urine test negative, equivocal Lyme IgM antibody noted, negative SARS-CoV-[address] of the head, CT angiography of the head and neck, and brain MRI are as described in the history of present illness. I independently reviewed these images, please see HPI for further details. An echocardiogram revealed normal left ventricular wall thickness, normal left ventricular systolic function, EF 55 to 60%, normal wall motion, there is a PFO with mild right to left interatrial shunt demonstrated with injection of agitated saline, atrial septum is not aneurysmal, no significant valvular pathology, normal left atrial size. Coding Level of Care Code 04871 Initial Inpt Care Lvl 3 Diagnoses Left-sided weakness R53.1 Seizure disorder G40.909
[2022-05-23] MEDS ORDERED: levETIRAcetam 500 MG TAB PO STA (11:43)
--- NOTE | 2022-05-23 16:59 | Ultrasound Report ---
BILATERAL LOWER EXTREMITY VENOUS DOPPLER HISTORY: Acute pain and swelling of the lower legs rule out DVT COMPARISON STUDY: None. FINDINGS: There is normal compressibility, flow, and augmentation within the bilateral lower extremit y deep venous systems. IMPRESSION: No DVT within the right or left lower extremity. ACT 112: Negative or not required by law. Electronically signed by: Graeme Ellington M.D. 05/23/2022 4:58 PM
--- NOTE | 2022-05-23 17:05 | Hospitalist Progress Note ---
Date of Service May 23, 2022 Assessment & Plan (1) Seizure disorder: Plan: h/o epilepsy. Stopped AEDs in the past but no h/o side effects reported. Possible Kade's paralysis. EEG with some signs of seizure activity. Keppra started this am. Monitor for side effects. Defer to neurology for titration of dosing. (2) Left-sided weakness: Plan: Acute left sided weakness and pain with associated numbness in arm and leg, unusual symptoms in seizure and unlike anything she has experienced in her past. No evidence of stroke on MRI, however, continuing baby aspirin in setting of PFO on echo. Hypercoagulable workup also ordered and lower extremity US is negative for DVT. concern for possible transverse myelitis. Discussed with neurologist typing section chief and will order cervical and thoracic MRI with and without contrast. Tylenol/Toradol for pain. PT/OT pending. (3) PFO (patent foramen ovale): Plan: ASA 81mg daily for prophylaxis. LE US negative for DVT and hypercoagulable workup is pending. (4) DVT prophylaxis: Plan: SCDs/ambulation Full Code Dispo-cont PCU monitoring. Mother and sister were updated at the bedside. Discussed the case with the primary RN. Yumiko Gaona DO [facility] Hospitalist Admission and Anticipated Discharge Date Admission Date: May 23, 2022 Subjective 36 yo F with a h/o seizure presents with acute weakness and pain on the left arm and leg. Apparently face is not involved and she denies any headache, difficulty swallowing and no visual changes. She has numbness and decreased sensation to touch on the R arm/leg compared with the L arm/leg. Mom and sister are at the bedside and we discussed her echo results in detail, which was of concern to them. The patient reports chest pain that began 1-2 days ago and traveled down her left arm and leg which is still there. Keppra was started this am and MRI ruled out stroke. PFO is present on echo. She continues on aspirin and hypercoagulable workup was ordered. Sister reports that the patient reported significant left leg pain during the last several months, that would sometimes affect her ability to walk. Pt denies this ever happening before. Review of Systems Review of Systems: All systems were reviewed and negative except as indicated above. Physical Exam Physical Exam: CONSTITUTIONAL: WNWD, vitals as above, generally NAD, but has some distress and pain when she moves, cannot sit up in bed or flex her right arm forward because of pain. EYES: pupils are round and equal bilaterally, normal conjunctivae ENT: external ear and nose normal, MMM, no facial asymmetry with face at rest or when she smiles. NECK: trachea midline RESPIRATORY: clear to auscultation bilaterally, no crackles, rales or wheezes, normal respiratory effort CARDIOVASCULAR: regular rate and rhythm, S1 and 2 heard without murmurs, gallops or rubs, no JVD, no peripheral edema CHEST: inspection of chest was normal GASTROINTESTINAL: soft, nontender, ND, no guarding. MUSCULOSKELETAL: cannot life her left arm or leg very easily compared with the right side. SKIN: warm and dry NEUROLOGIC: CN 2-12 grossly intact,decreased sensation on the left side (arma nd leg) compared to the normal right side. normal cognition, normal speech, no tremor PSYCHIATRIC: alert cooperative and oriented. Somewhat slow to respond to questioning with inappropriate smiling at times prompting concern for translation issue through language barrier vs intellectual disability. Makes good eye contact, speech intact. Results & Data Results & Data ([facility]) Vital Signs (Past 12 Hours) Vital Signs Temp Pulse Pulse Resp BP Pulse Ox O2 Del Method 05/23/22 14:55 80 05/23/22 12:36 37.6 C H 69 17 100/64 96 Room Air 05/23/22 08:02 36.9 C 71 17 95/60 L 95 Room Air 05/23/22 07:45 63 Laboratory Results Short CBC 05/23/22 Range/Units 06:05 WBC 3.57 L (4.8-10.8) K/ul Hgb 11.9 L (12.0-16.0) g/dl Hct 34.9 (34.1-44.9) % Plt Count 237 (130-400) K/uL BMP 05/23/22 06:05 Sodium 137 Potassium 3.8 Chloride 105 Carbon Dioxide 26 BUN 11 Creatinine 0.61 Glucose 86 Calcium 9.3 Diagnostic Findings Brain MRI 05/22/22 22:17 MR brain wo/w con CLINICAL HISTORY: stroke like symptoms TECHNIQUE: Multiplanar and multisequence MR images of the brain were obtained prior to and following administration of gadolinium contrast. Comparison: Comparison is made to MRI brain 07/16/2011 FINDINGS: No abnormal restricted diffusion is identified. The white matter is unremarkable. The ventricular system is normal in appearance. No mass or abnormal enhancement is seen. There is no mass effect or midline shift. There is no evidence of acute intraparenchymal hemorrhage. No extra axial fluid collections are seen. The corpus callosum, pituitary gland, and cerebellar tonsils appear grossly unremarkable. Flow voids of the major intracranial arterial vessels are identified. The imaged portions of the paranasal sinuses, mastoid air cells, and orbits are unremarkable. IMPRESSION: No acute abnormalities. ACT 112: Negative or not required by law. Electronically signed by: Arnav Chandler M.D. 05/23/2022 7:38 AM Venous Doppler Study 05/23/22 15:26 BILATERAL LOWER EXTREMITY VENOUS DOPPLER HISTORY: Acute pain and swelling of the lower legs rule out DVT COMPARISON STUDY: None. FINDINGS: There is normal compressibility, flow, and augmentation within the bilateral lower extremity deep venous systems. IMPRESSION: No DVT within the right or left lower extremity. ACT 112: Negative or not required by law. Electronically signed by: Graeme Ellington M.D. 05/23/2022 4:58 PM Medications Administered Current Inpatient Medications Acetaminophen (Acetaminophen 325 Mg Tab) 650 mg PO Q4H PRN PRN Reason: pain/fever Stop: 06/22/22 15:27 Aspirin (Aspirin 81 Mg Ectab) 81 mg PO QAM [facility] Stop: 06/22/22 08:59 Last Admin: 05/23/22 08:15 Dose: 81 mg Ketorolac Tromethamine (Ketorolac Tromethamine 15 Mg/Ml Vial) 15 mg IV Q6H PRN PRN Reason: Pain Stop: 05/28/22 16:23 Levetiracetam (Levetiracetam Soln 500 Mg/5 Ml Udp) 500 mg PO BID [facility] Stop: 06/22/22 20:59 Miscellaneous Information (Pharmacist Discharge Med Rec Consult) 1 each N/A UD PRN PRN Reason: Consult Stop: 06/21/22 22:16
[2022-05-23] MEDS ORDERED: GADOBUTROL 65ML VIAL IV ONE (18:01)
--- NOTE | 2022-05-23 18:31 | Magnetic Resonance Report ---
MR thoracic spine wo/w con CLINICAL HISTORY: acute pain on L arm/leg post seiz, r/o transv myel. COMPARISON: None. TECHNIQUE: Multiplanar multisequence images of the Thoracic Spine were performed with and without IV contrast. Contrast Volume: 7 ml of Gadavist FINDINGS: Bones: There is no evidence for vertebral body fracture. The heights of the vertebral bodies are main tained. The vertebral bodies are in anatomic alignment. On T1-weighted imaging, there are abnormal foci of decreased signal within the T3, T4, T5 and T10 deysi tebral bodies with mild loss of height at T10. There is also decreased signal present within the T12 vertebral body on both the right and the left sides. Following contrast administration, these sites e nhance characteristic of metastatic disease. History of underlying malignancy was not provided. Howev er, in a female patient of this age, the presence of breast cancer should be excluded. Homogeneous marrow signal is seen throughout the remaining bones of the thoracic spine. There is a sm all hemangioma of T4. Disc spaces: There are no focal disc protrusions or herniations identified. There is no significant s flaquita canal stenosis or neural foraminal narrowing present. Soft tissues: The thoracic spinal cord appears normal. There are no paraspinal fluid collections or s oft tissue masses identified. No abnormal enhancement is identified. IMPRESSION: Abnormal enhancing foci within the T3, T4, T5, T10 and T12 vertebral bodies highly suspic ious for metastatic bone disease. In a female patient of this age, breast cancer should be excluded. Clinical correlation is necessary. Electronically signed by: Andrew Nicholas M.D. 05/23/2022 6:29 PM
--- NOTE | 2022-05-23 18:32 | Magnetic Resonance Report ---
MR cervical spine wo/w con CLINICAL HISTORY: acute pain on L arm/leg post seiz, r/o transv myel. COMPARISON: None. TECHNIQUE: Multiplanar multisequence images of the Cervical Spine were performed were performed with and without IV contrast. Contrast Volume: 7 ml of Gadavist FINDINGS: There is no evidence for vertebral body fracture. The heights of the vertebral bodies are maintained. The vertebral bodies are in anatomic alignment. Homogeneous marrow signal seen without evidence for marrow edema or marrow replacement. The odontoid is intact and the atlantoaxial articulation is withi n normal limits. The craniocervical junction is within normal limits. Homogeneous signal is seen with in the spinal cord. There is no abnormal enhancement following contrast administration. C2-3: The disc space height is maintained. There are no focal disc protrusions or extrusions identi fied. The spinal canal is patent with no encroachment upon the spinal cord. The neural foramen are p atent bilaterally. There is no evidence for nerve root encroachment. The apophyseal joints are within normal limits. C3-4: The disc space height is maintained. There are no focal disc protrusions or extrusions identi fied. The spinal canal is patent with no encroachment upon the spinal cord. The neural foramen are p atent bilaterally. There is no evidence for nerve root encroachment. The apophyseal joints are within normal limits. C4-5: The disc space height is maintained. There are no focal disc protrusions or extrusions identi fied. The spinal canal is patent with no encroachment upon the spinal cord. The neural foramen are p atent bilaterally. There is no evidence for nerve root encroachment. The apophyseal joints are within normal limits. C5-6: The disc space height is maintained. There are no focal disc protrusions or extrusions identi fied. The spinal canal is patent with no encroachment upon the spinal cord. The neural foramen are p atent bilaterally. There is no evidence for nerve root encroachment. The apophyseal joints are within normal limits. C6-7: The disc space height is maintained. There are no focal disc protrusions or extrusions identi fied. The spinal canal is patent with no encroachment upon the spinal cord. The neural foramen are p atent bilaterally. There is no evidence for nerve root encroachment. The apophyseal joints are within normal limits. C7-T1: The disc space height is maintained. There are no focal disc protrusions or extrusions ident ified. The spinal canal is patent with no encroachment upon the spinal cord. The neural foramen are patent bilaterally. There is no evidence for nerve root encroachment. The apophyseal joints are withi n normal limits. IMPRESSION: 1. Negative MR of the cervical spine. ACT 112: Negative or not required by law. Electronically signed by: Andrew Nicholas M.D. 05/23/2022 6:31 PM
[2022-05-23] MEDS: KETOROLAC TROMETHAMINE 15 MG/ML VIAL IV PRN (22:27)
[2022-05-23] MEDS ORDERED: dexAMETHasone**PF** 10 MG/ML VIAL IV STA (22:32)
[2022-05-23] MEDS ORDERED: oxyCODONE HCL IR 5 MG TAB (IMMEDIATE RELEASE) PO PRN (22:33)
[2022-05-23] MEDS ORDERED: dexAMETHasone 10 MG in SYRINGE 0 ML IV STA (22:35)
[2022-05-24] MEDS: dexAMETHasone 4 MG TAB PO SCH ×4 (06:18→18:09)
[2022-05-24 06:28] LABS: Basophils # (auto) 0.03 K/uL (0-0.2); Basophils % (auto) 0.6 %; Eosinophils # (auto) 0.01 K/uL (0-0.50); Eosinophils % (auto) 0.2 %; Hematocrit (blood only) 36.7 % (34.1-44.9); Hemoglobin 12.4 g/dl (12.0-16.0); Immature Granulocytes # (auto) 0.01 K/uL (0.00-0.02); Immature Granulocytes % (auto) 0.2 %; Lymphocytes # (auto) 0.58 K/uL (1.2-3.4); Lymphocytes % (auto) 11.1 %; Mean Corpuscular Hemoglobin 30.2 pg (25.0-34.0); Mean Corpuscular Hgb Conc 33.8 g/dL (32.0-36.0); Mean Corpuscular Volume 89.3 fL (80.0-100.0); Mean Platelet Volume 9.7 fL (9.4-12.3); Monocytes # (auto) 0.03 K/uL (0.24-0.82); Monocytes % (auto) 0.6 %; Neutrophils # (auto) 4.58 K/uL (1.4-6.5); Neutrophils % (auto) 87.3 %; Platelet Count 244 K/uL (130-400); RDW Coefficient of Variation 12.4 % (11.5-14.5); RDW Standard Deviation 40.8 fL (36.4-46.3); Red Blood Count 4.11 M/uL (3.93-5.22); White Blood Count 5.24 K/ul (4.8-10.8)
[2022-05-24 07:06] LABS: Anion Gap 6 (3-11); BUN Creatinine Ratio 30.6 (10-20); Blood Urea Nitrogen 19 mg/dl (6-23); C Reactive Protein < 0.50 mg/dl (0-0.5); Calcium 9.5 mg/dl (8.5-10.1); Carbon Dioxide 25 mmol/L (21-32); Chloride 106 mmol/L (98-107); Creatinine Clr Calc Pharmacy 133.6 ml/min; Est GFR (African American) 136.4 ml/min; Est GFR (Non-African American) 117.6 ml/min; Glucose 149 mg/dl (70-99(Fasting)); Phosphorus 3.4 mg/dl (2.5-4.9); Sodium 137 mmol/L (136-145)
[2022-05-24] MEDS: ENOXAPARIN INJ 40 MG/0.4 ML SYR SQ SCH (09:49)
[2022-05-24] MEDS: ASPIRIN 81 MG ECTAB PO SCH (09:50)
--- NOTE | 2022-05-24 13:19 | Neurology Progress Note ---
Date of Service May 24, 2022 Assessment & Plan (1) Left-sided weakness: (2) Joint pain: (3) Seizure disorder: (4) Abnormal MRI, thoracic spine: Plan 36-year-old Denominational female with a history of epilepsy, had not been on seizure medication but with a reported history of intermittent seizures, presenting with left-sided weakness and associated pain, hypersensitivity to light and deep palpation, joint pain as well. No acute abnormality on brain MRI. EEG with potential epileptiform abnormalities localizing to the right cerebral hemisphere. Patient has been started on Keppra. No evidence of spinal myelopathy on MRI of the cervical or thoracic spine. However, T-spine MRI r eveals multiple enhancing lesions within several thoracic vertebral bodies potentially worrisome for metastatic disease. Notably, there is no evidence of compromise of the central canal or neural elements. The significance of the observed vertebral body lesions in the context of her current clinical presentation is not entirely clear. Lyme Western blot pending, she did have an equivocal Lyme IgM antibody, negative Lyme IgG antibody. Testing for anaplasmosis and babesiosis negative. 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 However, only has a positive Lyme IgM antibody thus far. Follow-up with results of Western blot. It would not be unreasonable to start treatment with doxycycline while we are waiting for results of the Western blot. Continue with Keppra 500 mg twice daily given patient's history of epilepsy. Would consider adding gabapentin as well, primarily to address what appears to be significant neuropathic pain in the context of her current presentation. Would recommend starting with a low-dose, 200 mg twice daily. Agree with oncology evaluation, may need further staging/evaluation for possible underlying metastatic disease. Admission and Anticipated Discharge Date Admission Date: May 23, 2022 Subjective Follow-up follow-up for left-sided weakness, seizure disorder Patient has not exhibited any seizure-like episodes in the context of this hospitalization. She had presented with left-sided weakness. Patient continues to display a mild to moderate degree of left-sided weakness with associated pain affecting the left arm and leg. Denies spinal pain but does report some pain across the left thorax. She denies headache. No change in vision or speech. Brain MRI negative for acute process. EEG generally unremarkable although potential intermittent right temporal sharps noted. Patient was started on Keppra. After further discussion with Yumiko Gaona yesterday, had also recommended completion of an MRI of the cervical and thoracic spine. These test have been completed and reviewed. Cervical spine MRI normal, no spinal cord signal abnormality, disc protrusions or compromise of the central canal or neural elements. The thoracic spine MRI did reveal several abnormal enhancing foci within the vertebral bodies at T3, T4, T5, T10, and T12. Signal characteristics potentially worrisome for metastatic disease. Hospitalist physician aware and has consulted oncology. No known history of malignancy in this patient. Review of Systems Eyes: no blind spots and no diplopia Musculoskeletal: no back pain and no neck pain Integumentary: no rash Neurologic: as per Subjective / HPI and + localized weakness; no headache(s) and no confusion Results & Data ([facility]) Vital Signs (Past 12 Hours) Vital Signs Temp Pulse Resp BP Pulse Ox O2 Del Method 05/24/22 12:48 36.5 C 82 18 118/60 97 05/24/22 06:59 36.4 C L 70 18 92/57 L 94 Room Air 05/24/22 04:07 36.6 C 76 18 100/66 94 Room Air Exam (Neuro) Neurologic: Oriented to:: Person, Place and Time Attention: Span Intact and Concentration Intact Speech Fluency: negative Dysfluency Fund of Knowledge: Vocabulary Cranial Nerves: Normal II, III, IV, , V, VII, VIII, IX, X, XI and XII Motor Strength: negative Normal Lower Extremities or Normal Upper Extremities Muscle Bulk/Involuntary Movements: No Involuntary Movements Sensation: negative Light Touch Intact Coordination: Finger-Nose Abnormal Laterality: Left and Heel-Carter Abnormal Laterality: Left Deep Tendon Reflexes: Rt Biceps: 2+, Lt Biceps: 2+, Rt Patellar: 2+ and Lt Patellar: 2+ Details: Patient exhibits hypersensitivity to light and deep touch for the left arm and leg, tenderness when palpating the left shoulder and left knee as well, no obvious swelling or erythema of these joints. Coding Level of Care Code 04430 Subseq Hosp Care Lvl 2 Diagnoses Left-sided weakness R53.1 Joint pain M25.50 Seizure disorder G40.909 Abnormal MRI, thoracic spine R93.7
[2022-05-24] MEDS: cefTRIAXone SODIUM 2,000 MG in DEXTROSE 5% 50 ML IV SCH (14:00)
--- NOTE | 2022-05-24 14:24 | CT Scan Report ---
CT abd pelvis wo con CLINICAL HISTORY: Weight loss. Evaluate for bone metastases as suspected on MRI. Evaluate for occult malignancy. COMPARISON STUDY: MRI of the thoracic spine from 05/23/[address] of the abdomen and pelvis from 01/04 CT DOSE: TECHNIQUE: Standard CT of the Abdomen and Pelvis was performed without IV contrast. The patient did not receive oral contrast. A dose lowering technique was utilized adhering to the principles of TARIQ Steen. FINDINGS: Lung base: The lung bases are clear. Abdominal cavity: There is no evidence for abdominal mass, adenopathy or ascites. Liver: The liver is homogeneous in attenuation on these limited noncontrast images.. Spleen: The spleen is homogeneous in attenuation on these limited noncontrast images. Pancreas: The pancreas is homogeneous in attenuation on these limited noncontrast images. Gall Bladder: The gallbladder is contracted due to the patient's nonfasting state. Adrenal glands: The adrenal glands are normal in size and attenuation on these limited noncontrast im ages. Kidneys: The kidneys are homogeneous in attenuation on these limited noncontrast images. There is no evidence for gross renal mass, calculus or hydronephrosis bilaterally. Bowel: The stomach is grossly distended with liquid and food stuff. The bowel loops are normally plac ed within the abdomen and pelvis without evidence for dilatation or obstruction. There is no evidence for mass lesion. There is mild fecal stasis without evidence for impaction or obstruction. There are no inflammatory changes present. There is no evidence for free air. There is a normal appendix in th e right quadrant. Bladder: There is distention of the bladder with no evidence for focal bladder wall thickening, calcu kathe or diverticulum. : There is no evidence for pelvic mass or adenopathy. Vasculature: There is no evidence for focal aneurysmal dilatation of the abdominal aorta. Osseous structures: There are lucencies present bilaterally within the last rib-bearing vertebral bod y by CT. This corresponds to the site of abnormal signal seen on the patient's MRI. There is evidence for 6 nonrib-bearing vertebral bodies with the sixth vertebral body being transitional in nature art iculating with the sacrum via its transverse process on the right.. No other lytic lesions are identi fied. Please correlate with the patient's CT of the chest as well. IMPRESSION: 1. Abnormal lucencies are seen within the last rib-bearing vertebral body as described above correspo nding to the sites of abnormal signal seen on the patient's thoracic spine MRI. 2. No acute intra-abdominal or pelvic abnormality on these limited noncontrast images. ACT 112: Negative or not required by law. Electronically signed by: Andrew Nicholas M.D. 05/24/2022 2:22 PM
--- NOTE | 2022-05-24 14:37 | CT Scan Report ---
CT chest diagnostic wo con CLINICAL HISTORY: Weight loss. Evaluate for bone metastases as suspected on MRI of the thoracic spine . Evaluate for occult malignancy. COMPARISON STUDY: MR of the thoracic spine from 05/23/2022 CT DOSE: 579.33 mGy.cm TECHNIQUE: Standard CT of the Chest was performed without IV contrast. A dose lowering technique was utilized adhering to the principles of ALARA. FINDINGS: CHEST WALL: There is suspicion for an asymmetric mass involving the right breast when compared to the left. Follow-up mammography and breast ultrasound are recommended for further evaluation. It measure s approximately 4.4 x 2.4 cm. Airway: The airway is clear. No endobronchial lesion is identified. Lungs: The lungs are clear of acute alveolar opacities, air bronchograms or pulmonary nodules. Pleura: There is no evidence for pleural effusion. There is no evidence for pneumothorax. Mediastinum: There is no evidence for pathologic adenopathy on these limited noncontrast images. Ther e are mildly prominent prevascular lymph nodes. The heart size is within normal limits. The thoracic aorta is within normal limits. There is no evidence for pericardial effusion. Osseous structures: There are minimal lucencies seen within the T10 vertebral body and the T12 verteb ral body bilaterally. There is a very subtle, however, correlate with the abnormal signal seen on the MRI. These are again suspicious for bone metastases. Percutaneous bone biopsy of T12 could be obtain ed for further evaluation. The additional very small lesions seen within the T3, T4 and T5 on MRI are not identified on the CT. IMPRESSION: 1. There are abnormal lucency seen involving the T10 and T12 vertebral bodies corresponding to the si rand of abnormal signal seen on the patient's MRI. Findings are suspicious for metastatic disease and percutaneous biopsy could be obtained for further evaluation. 2. Mildly prominent prevascular lymph nodes. 3. There is suspicion of a right breast mass and follow-up mammography and ultrasound is necessary fo r further evaluation. 4. There is no acute chest disease on these noncontrast images. ACT 112: Positive. There are findings on this exam that require communication between the performing entity and the patient following Patient Test Result Information Act ([place] Act 112) guidelines. Electronically signed by: Andrew Nicholas M.D. 05/24/2022 2:35 PM
--- NOTE | 2022-05-24 19:15 | Hospitalist Progress Note ---
Date of Service May 24, 2022 Assessment & Plan (1) Seizure disorder: Plan: h/o epilepsy. Stopped AEDs in the past but no h/o side effects reported. Possible Kade's paralysis. EEG with some signs of seizure activity. Rizwana started this am. Monitor for side effects. Defer to neurology for titration of dosing. (2) Left-sided weakness: Plan: Acute left sided weakness and pain with associated numbness in arm and leg, unusual symptoms in seizure and today she and family are saying these symptoms have followed seizure like activity in the past. Consider paraneoplastic syndrome etiology in differential, also, given new mass with vertebral lesions. No evidence of stroke on MRI, however, continuing baby aspirin in setting of PFO on echo. Hypercoagulable workup also ordered and lower extremity US is negative for DVT. MRI T spine with metastatic lesions. Although no spinal cord compression, with neurologic deficits that were difficult to localize, I did start decadron overnight and her pain is improved. Toradol and Tylenol also helping with this, and she may have naturally gotten better if this were a true post-ictal symptom. (3) Abnormal MRI, thoracic spine: Plan: concerning for metastatic disease. Working on getting a diagnosis first. Will likely taper off decadron over next few days, which was given empirically, and see how she does. (4) Breast mass, right: Plan: New weight loss reported with night sweats today. CT scan c/a/p reveals a right breast mass. Oncology consulted and diagnostic mammogram recommended with US guided biopsy. Discussed results with sister Julianna by phone who is representing the family as the spokesperson. Julianna mentioned that the Oncologist had discussed the possibility of cancer with the patient already today so she was aware. (5) PFO (patent foramen ovale): Plan: ASA 81mg daily for prophylaxis. LE US negative for DVT and hypercoagulable workup is pending. (6) DVT prophylaxis: Plan: Lovenox added with possible malignancy and continued immobilization. Full Code Dispo-cont PCU monitoring. Mother and sister were updated at the bedside. Discussed the case with the primary RN. Yumiko Gaona DO [facility] Hospitalist Admission and Anticipated Discharge Date Admission Date: May 23, 2022 Subjective Follow-up follow-up for left-sided weakness, seizure disorder 36 yo F presents with acute weakness and numbness with pain on her left arm and leg associated with chest pain. Today family reports that previous seizures were associated with left arm and leg pain in the past but not with this intensity and not with associated chest pain. She is feeling better and reports pain is improved and was actually zero this am when she woke up and now is around a 5/10. She is moving better in bed. Further conversation reveals a 20 lb weight loss in the past 2 months and night sweats for the past two months. She has been eating and has had an appetite. I reviewed the presence of spinal lesions with patient and family today. We discussed the possibility of cancer, especially in light of constiutional symptoms. We also discussed the Lyme serology. Last known tick bite was two years ago. Started Rocepin empirically with ongoing neurologic symptoms. Also, she is doing fine with the decadron started last night. She reports very severe joint pain around the left knee and the hip. There is no evidence of synovitis (warmth, swelling or redness). Cannot perform knee reflex test secondary to severe pain. L ankle is fine. Denies back pain. No family history of cancer aside from a maternal uncle who had an i ntestinal/pancreatic cancer in his 50s. Review of Systems Review of Systems: All systems were reviewed and negative except as indicated above. Physical Exam Physical Exam: CONSTITUTIONAL: WNWD, vitals as above, generally NAD, moving her right arm and leg a little bit more today. EYES: pupils are round and equal bilaterally, normal conjunctivae ENT: external ear and nose normal, MMM, no facial asymmetry with face at rest or when she smiles. NECK: trachea midline RESPIRATORY: clear to auscultation bilaterally, no crackles, rales or wheezes, normal respiratory effort CARDIOVASCULAR: regular rate and rhythm, S1 and 2 heard without murmurs, gallops or rubs, no JVD, no peripheral edema CHEST: inspection of chest was normal GASTROINTESTINAL: soft, nontender, ND, no guarding. MUSCULOSKELETAL: cannot life her left arm or leg very easily compared with the right side. SKIN: warm and dry NEUROLOGIC: CN 2-12 grossly intact,decreased sensation on the left side (arma nd leg) compared to the normal right side. normal cognition, normal speech, no tremor PSYCHIATRIC: alert cooperative and oriented. Somewhat slow to respond to questioning with inappropriate smiling at times prompting concern for translation issue through language barrier vs intellectual disability. Makes good eye contact, speech intact. Results & Data Results & Data ([facility]) Vital Signs (Past 12 Hours) Vital Signs Temp Pulse Resp BP Pulse Ox 05/24/22 15:37 36.8 C 74 18 99/58 L 97 05/24/22 12:48 36.5 C 82 18 118/60 97 Laboratory Results Short CBC 05/24/22 Range/Units 06:04 WBC 5.24 (4.8-10.8) K/ul Hgb 12.4 (12.0-16.0) g/dl Hct 36.7 (34.1-44.9) % Plt Count 244 (130-400) K/uL BMP 05/24/22 06:04 Sodium 137 Potassium 4.0 Chloride 106 Carbon Dioxide 25 BUN 19 Creatinine 0.62 Glucose 149 H Calcium 9.5 Diagnostic Findings Abdomen/Pelvis CT 05/24/22 13:10 CT abd pelvis wo con CLINICAL HISTORY: Weight loss. Evaluate for bone metastases as suspected on MRI. Evaluate for occult malignancy. COMPARISON STUDY: MRI of the thoracic spine from 05/23/[address] of the abdomen and pelvis from 01/04/2022 CT DOSE: TECHNIQUE: Standard CT of the Abdomen and Pelvis was performed without IV contrast. The patient did not receive oral contrast. A dose lowering technique was utilized adhering to the principles of ALARA. FINDINGS: Lung base: The lung bases are clear. Abdominal cavity: There is no evidence for abdominal mass, adenopathy or ascites. Liver: The liver is homogeneous in attenuation on these limited noncontrast images.. Spleen: The spleen is homogeneous in attenuation on these limited noncontrast images. Pancreas: The pancreas is homogeneous in attenuation on these limited noncontrast images. Gall Bladder: The gallbladder is contracted due to the patient's nonfasting state. Adrenal glands: The adrenal glands are normal in size and attenuation on these limited noncontrast images. Kidneys: The kidneys are homogeneous in attenuation on these limited noncontrast images. There is no evidence for gross renal mass, calculus or hydronephrosis bilaterally. Bowel: The stomach is grossly distended with liquid and food stuff. The bowel loops are normally placed within the abdomen and pelvis without evidence for dilatation or obstruction. There is no evidence for mass lesion. There is mild fecal stasis without evidence for impaction or obstruction. There are no inflammatory changes present. There is no evidence for free air. There is a normal appendix in the right quadrant. Bladder: There is distention of the bladder with no evidence for focal bladder wall thickening, calculus or diverticulum. : There is no evidence for pelvic mass or adenopathy. Vasculature: There is no evidence for focal aneurysmal dilatation of the abdominal aorta. Osseous structures: There are lucencies present bilaterally within the last rib- bearing vertebral body by CT. This corresponds to the site of abnormal signal seen on the patient's MRI. There is evidence for 6 nonrib-bearing vertebral bodies with the sixth vertebral body being transitional in nature articulating with the sacrum via its transverse process on the right.. No other lytic lesions are identified. Please correlate with the patient's CT of the chest as well. IMPRESSION: 1. Abnormal lucencies are seen within the last rib-bearing vertebral body as described above corresponding to the sites of abnormal signal seen on the patient's thoracic spine MRI. 2. No acute intra-abdominal or pelvic abnormality on these limited noncontrast images. ACT 112: Negative or not required by law. Electronically signed by: Andrew Nicholas M.D. 05/24/2022 2:[address] 05/24/22 13:10 CT chest diagnostic wo con CLINICAL HISTORY: Weight loss. Evaluate for bone metastases as suspected on MRI of the thoracic spine. Evaluate for occult malignancy. COMPARISON STUDY: MR of the thoracic spine from 05/23/2022 CT DOSE: 579.33 mGy.cm TECHNIQUE: Standard CT of the Chest was performed without IV contrast. A dose lowering technique was utilized adhering to the principles of ALARA. FINDINGS: CHEST WALL: There is suspicion for an asymmetric mass involving the right breast when compared to the left. Follow-up mammography and breast ultrasound are recommended for further evaluation. It measures approximately 4.4 x 2.4 cm. Airway: The airway is clear. No endobronchial lesion is identified. Lungs: The lungs are clear of acute alveolar opacities, air bronchograms or pulmonary nodules. Pleura: There is no evidence for pleural effusion. There is no evidence for pneumothorax. Mediastinum: There is no evidence for pathologic adenopathy on these limited noncontrast images. There are mildly prominent prevascular lymph nodes. The heart size is within normal limits. The thoracic aorta is within normal limits. There is no evidence for pericardial effusion. Osseous structures: There are minimal lucencies seen within the T10 vertebral body and the T12 vertebral body bilaterally. There is a very subtle, however, correlate with the abnormal signal seen on the MRI. These are again suspicious for bone metastases. Percutaneous bone biopsy of T12 could be obtained for further evaluation. The additional very small lesions seen within the T3, T4 and T5 on MRI are not identified on the CT. IMPRESSION: 1. There are abnormal lucency seen involving the T10 and T12 vertebral bodies corresponding to the sites of abnormal signal seen on the patient's MRI. Findings are suspicious for metastatic disease and percutaneous biopsy could be obtained for further evaluation. 2. Mildly prominent prevascular lymph nodes. 3. There is suspicion of a right breast mass and follow-up mammography and ultrasound is necessary for further evaluation. 4. There is no acute chest disease on these noncontrast images. ACT 112: Positive. There are findings on this exam that require communication between the performing entity and the patient following Patient Test Result Information Act ([place] Act 112) guidelines. Electronically signed by: Andrew Nicholas M.D. 05/24/2022 2:35 PM Medications Administered Current Inpatient Medications Acetaminophen (Acetaminophen 325 Mg Tab) 650 mg PO Q4H PRN PRN Reason: pain/fever Stop: 06/22/22 15:27 Aspirin (Aspirin 81 Mg Ectab) 81 mg PO QAM [facility] Stop: 06/22/22 08:59 Last Admin: 05/24/22 09:50 Dose: 81 mg Dexamethasone (Dexamethasone 4 Mg Tab) 4 mg PO Q6H [facility] Stop: 06/23/22 05:59 Last Admin: 05/24/22 18:09 Dose: 4 mg Enoxaparin Sodium (Enoxaparin Inj 40 Mg/0.4 Ml Syr) 40 mg SQ QAM [facility] Stop: 06/23/22 08:59 Last Admin: 05/24/22 09:49 Dose: 40 mg Ceftriaxone Sodium 2,000 mg/ (Dextrose) 70 mls @ 100 mls/hr IV Q24H [facility]; Protocol Stop: 06/03/22 13:29 Last Infusion: 05/24/22 14:42 Dose: Infused Ketorolac Tromethamine (Ketorolac Tromethamine 15 Mg/Ml Vial) 15 mg IV Q6H PRN PRN Reason: Pain Stop: 05/28/22 16:23 Last Admin: 05/23/22 22:27 Dose: 15 mg Levetiracetam (Levetiracetam Soln 500 Mg/5 Ml Udp) 500 mg PO BID GERDA Stop: 06/22/22 20:59 Last Admin: 05/24/22 09:50 Dose: 500 mg Oxycodone HCl (Oxycodone Hcl Ir 5 Mg Tab (Immediate Release)) 5 mg PO Q6H PRN PRN Reason: Severe Pain Stop: 06/06/22 22:32
--- NOTE | 2022-05-24 23:44 | Electrocardiogram Report ---
Test Reason : Blood Pressure : / mmHG Vent. Rate : 060 BPM Atrial Rate : 060 BPM P-R Int : 186 ms QRS Dur : 098 ms QT Int : 418 ms P-R-T Axes : 050 056 055 degrees QTc Int : 418 ms Normal sinus rhythm Normal ECG When compared with ECG of 22-MAY-2022 14:39, RSR' pattern in V1 is no longer Present Confirmed by Kishore Suarez ([id number]) on 05/24/2022 11:43:37 PM Referred By: REFERRED SELF Confirmed By:Kishore Suarez
[2022-05-25] MEDS: dexAMETHasone 4 MG TAB PO SCH ×4 (02:57→23:15)
[2022-05-25] MEDS: KETOROLAC TROMETHAMINE 15 MG/ML VIAL IV PRN (07:57)
[2022-05-25] MEDS: ASPIRIN 81 MG ECTAB PO SCH (07:59)
[2022-05-25] MEDS: ENOXAPARIN INJ 40 MG/0.4 ML SYR SQ SCH (07:59)
--- NOTE | 2022-05-25 09:41 | Neurology Progress Note ---
Date of Service May 25, 2022 Assessment & Plan (1) Seizure disorder: (2) Left-sided weakness: (3) Abnormal MRI, thoracic spine: (4) Breast mass, right: Plan 36-year-old female with a history of seizure disorder beginning at age 4, followed by remission until her 20s. She has presented with a left-sided Kade's paralysis which is happened with several of her recent seizures over the past 4 years. Her EEG does reveal a right temporal sharp and slow wave focus. She had not been taking an anticonvulsant medication at the time of her presentation. Keppra has been started. I would recommend increasing her dosage of this medication to 750 mg twice daily. Further up titration may be necessary depending on her status going forward. May also consider obtaining a follow-up brain MRI with seizure protocol to include thin sections through the temporal lobes going forward as well. Patient also presents with a new issue, multiple enhancing lesions within several thoracic vertebral bodies worrisome for metastatic disease and what looks like a suspicious right breast mass potentially consistent with malignancy. Further evaluation ongoing, oncology has been consulted. Patient also has an equivocal positive Lyme IgM, Western blot pending. Nonetheless, she does have significant joint pain, left shoulder and left knee and a history of tick exposure, acute Lyme disease not excluded at this time. Currently receiving ceftriaxone, awaiting results of Western blot. Patient's left-sided pain does have a neuropathic character, hypersensitive to both light and deep touch, element of allodynia, would therefore consider adding a low-dose of gabapentin as well depending on the status of this issue going forward. Admission and Anticipated Discharge Date Admission Date: May 23, 2022 Subjective Follow-up for epilepsy, left-sided weakness The patient continues to exhibit a mild to moderate degree of left-sided weakness, left face arm and leg. Patient has had similar episodes of left-sided weakness following her seizures for the past 3 to 4 years according to her mother at bedside. However, she began experiencing seizures around age 4, followed by resolution, with recurrence in her early 20s. She was not taking an anticonvulsant medication at the time of her [facility] to the [facility], in spite of experiencing recurrent seizures. My initial impression, regarding her left-sided weakness, was of probable Kade's paralysis. An initial brain MRI was negative for stroke or other acute findings. I have independently reviewed these images. The seizure protocol with thin sections through the temporal lobes was not performed, however. Standard coronal FLAIR sequences were obtained, however. There is perhaps slight asymmetry of the hippocampi with the right hippocampal region perhaps slightly atrophic compared to the left although potentially within normal limits. No obvious signal change within either hippocampus. No abnormal postcontrast enhancement although I do appreciate a probable developmental venous anomaly within the left frontal lobe, no associated cavernoma. The patient has also been complaining of left-sided pain, especially the left shoulder and left knee, but general pain to light and deep palpation of the left arm and leg. Also complains of some left thoracic pain. Given her persistent left-sided weakness and pain complaint, additional imaging evaluation was undertaken including MRI of the cervical and thoracic spine. The cervical spine MRI was unremarkable. However, the thoracic spine MRI revealed multiple abnormal enhancing foci within several thoracic vertebral bodies, T3, T4, T5, T10, and T12, potentially worrisome for metastatic disease. No abnormalities within the spinal cord or affecting the central canal or neural elements identified. Given concern for possible occult malignancy, however, additional evaluation was undertaken including CT of the abdomen and pelvis and CT of the chest. No intra-abdominal or pelvic abnormality was observed. Lucencies within the thoracic vertebral bodies again seen. The CT of the chest did reveal a suspicious right breast mass with recommendation for further evaluation including mammography, ultrasound, and biopsy. Patient and her mother have been informed of these findings. An oncology consultation was also ordered. Review of Systems Eyes: no blind spots and no diplopia Musculoskeletal: no back pain and no neck pain Neurologic: as per Subjective / HPI, + localized weakness and + loss of sensation; no headache(s) Results & Data ([facility]) Vital Signs (Past 12 Hours) Vital Signs Temp Pulse Resp BP Pulse Ox O2 Del Method 05/25/22 02:59 36.8 C 62 18 99/57 L 93 Room Air 05/24/22 23:13 37.0 C 68 17 95/52 L 95 Room Air Laboratory Results WBC 5.24, hemoglobin 12.4, hematocrit 36.7, MCV 89.3, platelet count 244, ESR 10, hypercoagulable panel pending, sodium 137, potassium 4.0, BUN 19, creatinine 0.62, glucose 149, calcium 9.5, C-reactive protein less than 0.50, vitamin D 37.7, equivocal positive Lyme IgM antibody, Western blot pending Diagnostic Findings Brain and spinal MRI as well as other imaging results are as described above. EEG completed May 23, 2022 revealed a normal background rhythm although upon further review there is an intermittent right temporal sharp and slow wave focus. Exam (Neuro) Neurologic: Oriented to:: Person, Place and Time Attention: Span Intact and Concentration Intact Speech Fluency: negative Dysarthria or Dysfluency Fund of Knowledge: Vocabulary Cranial Nerves: Normal II, III, IV, , V, VIII, IX, X, XI and XII; Abnorm VII (There is mild to moderate weakness of the left lower face) Motor Strength: Hemiparesis (There is a mild left hemiparesis affecting the arm and leg, movements are slow, with poor movement initiation.) Laterality: Left Motor Tone: Normal Lower Extremities and Normal Upper Extremities Muscle Bulk/Involuntary Movements: No Involuntary Movements Special Tests: negative Babinski Present Coding Level of Care Code 75932 Subseq Hosp Care Lvl 2 Diagnoses Seizure disorder G40.909 Left-sided weakness R53.1 Abnormal MRI, thoracic spine R93.7 Breast mass, right N63.10
[2022-05-25] MEDS ORDERED: levETIRAcetam 250 MG TAB PO ONE (10:36)
[2022-05-25] MEDS: cefTRIAXone SODIUM 2,000 MG in DEXTROSE 5% 50 ML IV SCH (14:18)
[2022-05-25 14:49] LABS: Babesia microti DNA Not Detected (Not Detected)
--- NOTE | 2022-05-25 15:20 | Hospitalist Progress Note ---
Date of Service May 25, 2022 Assessment & Plan (1) Seizure disorder: Plan: h/o epilepsy. Stopped AEDs in the past but no h/o side effects reported. Possible Kade's paralysis. EEG with some signs of seizure activity. Rizwana started this am. Monitor for side effects. Defer to neurology for titration of dosing. (2) Left-sided weakness: Plan: Acute left sided weakness and pain with associated numbness in arm and leg, unusual symptoms in seizure and today she and family are saying these symptoms have followed seizure like activity in the past. Consider paraneoplastic syndrome etiology in differential, also, given new mass with vertebral lesions. No evidence of stroke on MRI, however, continuing baby aspirin in setting of PFO on echo. Hypercoagulable workup also ordered and lower extremity US is negative for DVT. MRI T spine with metastatic lesions. Although no spinal cord compression, with neurologic deficits that were difficult to localize. At this point decadron hasn't seemed to help her much. I also started ceftriaxone as her IgM for Lyme was equivocal but this is not helping to improve her symptoms- Lyme panel is still pending. Toradol and Tylenol also helping with pain, but again, symptoms are not improving and she is only able to ambulate a few steps to the door with a walker when working with therapy today. Paraneoplastic stiff person syndrome is in the differential diagnosis, which may be associated with breast cancers. This disorder is characterized by excessive muscle rigidity of the lumbar, trunk, and proximal limb muscles that is caused by sustained muscular contractions occurring in agonist and antagonist muscles. There is a large degree of muscle stiffness and rigidity which may be insidious and progressively worsening over time especially involving proximal limb muscles. Patient's can walk with a wide-based and unsteady gait. Superimposed muscle spasm may be precipitated by sudden movement noise or emotional upset they are painful and can generate sufficient force to fracture a bone. It may be associated with anti-amphiphysin antibodies or anti-JOSE ELIAS antibodies and typically inflammatory markers are negative. These patients will typically respond to diazepam. (3) Abnormal MRI, thoracic spine: Plan: concerning for metastatic disease. Working on getting a diagnosis first. Will likely taper off decadron over next few days, which was given empirically, and see how she does. Consider bone scan per Oncology recommendations. (4) Breast mass, right: Plan: New weight loss reported with night sweats. CT scan c/a/p reveals a right breast mass. Oncology consulted and diagnostic mammogram recommended with US guided biopsy. Clinical picture is concerning for metastatic breast cancer. Contacted breast center regarding possibility of getting diagnostic studies as inpatient. Awaiting a call back. (5) PFO (patent foramen ovale): Plan: ASA 81mg daily for prophylaxis. LE US negative for DVT and hypercoagulable workup is pending. (6) DVT prophylaxis: Plan: Lovenox added with possible malignancy and continued immobilization. Full Code Dispo-cont PCU monitoring. Family updated at the bedside. Discussed the case with the primary RN. [facility]um[facility] and [facility]ticipated Discharge Date Admission Date: May 23, 2022 Subjective Follow-up follow-up for left-sided weakness, seizure disorder 36 yo F presents with acute weakness and numbness with pain on her left arm and leg associated with chest pain. Woke up this morning with same symptoms that brought her in listed above She was improved after Toradol and Oxycodone but although pain is still present, she cannot move her arm or leg very much and still has some numbness. Proximal leg appears to be most affected when it comes to pain with patient citing severe let knee pain and some L hip pain and pain in between. Entire left leg has decreased sensation and she has weakness throughout including decreased dorsi and plantarflexion of the left foot. Breast examined on the right and no mass was palpable. Keppra dose was increased. RN mentioned that family has been wheeling her around in a wheelchair because of symptoms like this actually going on for the last couple of months. She is eating and afebrile. We discussed the ongoing investigative studies that have resulted so far Multiple family members were present at the bedside Review of Systems Review of Systems: All systems were reviewed and negative except as indicated above. Physical Exam Physical Exam: CONSTITUTIONAL: WNWD, vitals as above, generally NAD, moving her right arm and leg about the same as yesterday EYES: pupils are round and equal bilaterally, normal conjunctivae ENT: external ear and nose normal, MMM, no facial asymmetry with face at rest or when she smiles. NECK: trachea midline RESPIRATORY: clear to auscultation bilaterally, no crackles, rales or wheezes, normal respiratory effort CARDIOVASCULAR: regular rate and rhythm, S1 and 2 heard without murmurs, gallops or rubs, no JVD, no peripheral edema CHEST: inspection of chest was normal GASTROINTESTINAL: soft, nontender, ND, no guarding. MUSCULOSKELETAL: cannot life her left arm or leg very easily compared with the right side. About the same ROM as yesterday. There is a stiffness to movement passively by examiner, and partly some guarding 2/2 pain and discomfort that is expected from the movement. SKIN: warm and dry NEUROLOGIC: CN 2-12 grossly intact,decreased sensation on the left side (arm and leg) compared to the normal right side. normal cognition, normal speech, no tremor PSYCHIATRIC: alert cooperative and oriented. Results & Data Results & Data ([facility]) Vital Signs (Past 12 Hours) Vital Signs Temp Pulse Resp BP Pulse Ox O2 Del Method 05/25/22 11:15 37.1 C 77 20 98/54 L 97 Room Air 05/25/22 09:45 36.8 C 77 20 102/58 L 96 Room Air Medications Administered Current Inpatient Medications Acetaminophen (Acetaminophen 325 Mg Tab) 650 mg PO Q4H PRN PRN Reason: pain/fever Stop: 06/22/22 15:27 Aspirin (Aspirin 81 Mg Ectab) 81 mg PO QAM [facility] Stop: 06/22/22 08:59 Last Admin: 05/25/22 07:59 Dose: 81 mg Dexamethasone (Dexamethasone 4 Mg Tab) 4 mg PO Q8H [facility] Stop: 06/24/22 01:59 Last Admin: 05/25/22 07:59 Dose: 4 mg Enoxaparin Sodium (Enoxaparin Inj 40 Mg/0.4 Ml Syr) 40 mg SQ QAM [facility] Stop: 06/23/22 08:59 Last Admin: 05/25/22 07:59 Dose: 40 mg Gabapentin (Gabapentin 300 Mg Cap) 300 mg PO HS [facility] Stop: 06/24/22 20:59 Ceftriaxone Sodium 2,000 mg/ (Dextrose) 70 mls @ 100 mls/hr IV Q24H [facility]; Protocol Stop: 06/03/22 13:29 Last Infusion: 05/25/22 15:02 Dose: Infused Ketorolac Tromethamine (Ketorolac Tromethamine 15 Mg/Ml Vial) 15 mg IV Q6H PRN PRN Reason: Pain Stop: 05/28/22 16:23 Last Admin: 05/25/22 07:57 Dose: 15 mg Levetiracetam (Levetiracetam 250 Mg Tab) 750 mg PO BID [facility] Stop: 06/24/22 20:59 Oxycodone HCl (Oxycodone Hcl Ir 5 Mg Tab (Immediate Release)) 5 mg PO Q6H PRN PRN Reason: Severe Pain Stop: 06/06/22 22:32 Last Admin: 05/25/22 12:33 Dose: 5 mg
--- NOTE | 2022-05-25 16:51 | Consultation Report ---
DATE OF SERVICE: 05/24/2022. REASON FOR CONSULTATION: Metastatic vertebral disease. HISTORY OF PRESENT ILLNESS: The patient is a 36-year-old female with history of seizure disorder since the age of 4, who presented to the ER at [facility] on 05/23/2022 with complaints of chest pain and left upper extremity discomfort. CTA head and neck obtained on 05/22/2022 was unremarkable. Brain MRI also obtained on 05/22/2022 showed no acute abnormalities. She subsequently had MRI cervical and thoracic spine on 05/23/2022 to evaluate for left upper extremity and lower extremity pain revealed abnormal enhancing foci within T3, T4, T5, T10 and T12 vertebral bodies, highly suspicious for metastatic bone disease. CT chest, abdomen and pelvis on 05/24/2022 revealed abnormal lucency involving T10 and T12 vertebral bodies, suspicious for metastatic disease, suspicion for right breast mass as well as abnormal lucencies in the last rib bearing vertebral body. During my evaluation of patient today, she appeared slightly confused and so most of my questions were answered by her mother who was at bedside and her sister. Mother states that she had been complaining of left upper extremity pain for several days. Denies significant chest pain, shortness of breath, abdominal pain, nausea, vomiting, significant weight loss or breast mass. Her mother denies any significant family history of breast or ovarian cancer. The patient has never been . HOME MEDICATIONS: No known home medications. ALLERGIES: No known drug allergies. PAST MEDICAL HISTORY: Unremarkable. PAST SURGICAL HISTORY: Unremarkable. SOCIAL HISTORY: Denies smoking, alcohol, or illicit drug use. REVIEW OF SYSTEMS: Unremarkable except as noted in the HPI. PHYSICAL EXAMINATION: Unremarkable. LABORATORY TESTING: Essentially unremarkable. Imaging as noted above. ASSESSMENT AND PLAN: 1. Possible right breast lesion. 2. Multiple thoracic spine lesions. Pleasant 36-year-old female who was admitted with left upper extremity discomfort and concern for seizures. Imaging studies incidentally noted multiple lesions in thoracic spine suspicious for metastatic disease. CT chest revealed possible right breast lesion. On exam, could not palpate breast mass. We would recommend diagnostic right breast mammogram with ultrasound-guided biopsy of breast lesion. If this is unrevealing, she would benefit from biopsy of one of the thoracic spine lesions. In the meantime, we would recommend checking CA 15-3 and CA 27-29. Also, consider obtaining a bone scan if possible while in the hospital. Thank you for this consult. Oncology will plan to follow the patient upon discharge from hospital. Please feel free to call if you have any further questions. Job ID: [id number] HARI
[2022-05-25] MEDS: levETIRAcetam 250 MG TAB PO SCH (20:33)
[2022-05-25] MEDS ORDERED: GABAPENTIN 300 MG CAP PO SCH (21:00)
[2022-05-25 23:11] LABS: 18KDIGG Band NON-REACTIVE; 23KDIGG Band REACTIVE; 23KDIGM Band REACTIVE; 28KDIGG Band NON-REACTIVE; 30KDIGG Band NON-REACTIVE; 39KDIGG Band REACTIVE; 39KDIGM Band NON-REACTIVE; 41KDIGG Band REACTIVE; 41KDIGM Band NON-REACTIVE; 45KDIGG Band NON-REACTIVE; 58KDIGG Band REACTIVE; 66KDIGG Band NON-REACTIVE; 93KDIGG Band NON-REACTIVE; Lyme Antibodies, WB IgG NEGATIVE (NEGATIVE); Lyme Antibodies, WB IgM NEGATIVE (NEGATIVE)
[2022-05-26 02:16] LABS: Anti Cardiolipin Ab IgG <2.0 GPL-U/mL; Anti Cardiolipin Ab IgM <2.0 MPL-U/mL; Protein S Functional(Activity) 75 % (60-140)
[2022-05-26] MEDS: ACETAMINOPHEN 325 MG TAB PO PRN (03:54)
[2022-05-26] MEDS: dexAMETHasone 4 MG TAB PO SCH (08:00)
[2022-05-26] MEDS: levETIRAcetam 250 MG TAB PO SCH ×2 (10:12→20:36)
[2022-05-26] MEDS: ASPIRIN 81 MG ECTAB PO SCH (10:13)
[2022-05-26] MEDS: ENOXAPARIN INJ 40 MG/0.4 ML SYR SQ SCH (10:14)
--- NOTE | 2022-05-26 10:28 | Neurology Progress Note ---
Date of Service May 26, 2022 Assessment & Plan (1) Seizure disorder: (2) Left-sided weakness: (3) Abnormal MRI, thoracic spine: (4) Joint pain: Plan This patient has a nearly lifelong history of epilepsy and has right temporal sharp waves on EEG. She was initiated on levetiracetam and currently is taking 750 milligrams twice daily. She tolerates this. Patient has left-sided pain mostly in joints and has some giveaway weakness of the left arm and leg. I am not convinced there is any pathologic weakness in the arm and leg. She has no focal neurologic findings. MRI of the thoracic spine showed enhancement in multiple vertebral bones consistent with metastasis. There is a possible right breast mass seen on CT but was not palpable on exam by Dr. Caceres The patient has equivocal Lyme IgM and IgG. I am concerned that she does have Lyme disease creating her joint pain. I wondering if Lyme disease could create bone enhancement seen on MRI also. I notes a normal sed rate and CRP which would be unusual for metastatic cancer. Recommendations: 1. mammogram needed to evaluate for breast cancer. 2. I would continue IV ceftriaxone 2 grams daily while in the hospital. I might consider continuing this is an outpatient via extended IV or PICC line for a total of 4 weeks. Alternatively doxycycline 100 milligrams twice a day for 3-4 weeks after discharge. 3. Continue increasing activity, physical and occupational therapy. 4. continue levetiracetam 750 milligrams twice daily. 5. could titrate gabapentin as needed for pain (for now 300 milligrams at bedtime, or twice daily). 6. I am not sure a lumbar puncture would be useful at this stage. she has al ready been on IV antibiotics and has no meningeal signs or encephalopathy. Overall, I spent a total of 60 minutes with this case including review of records, review of MRI films, direct evaluation the patient at bedside, and discussion of the case with patient, mother, and RN at bedside as well as Dr. Gaona, including differential diagnosis and treatment options. Admission and Anticipated Discharge Date Admission Date: May 23, 2022 Subjective The patient is accompanied by her mother at bedside. She is used to speaking "[place]" so there is a little bit of communication barrier but, for the most part, I think we understood each other. Patient has left sided pain in the shoulder, upper arm to elbow, and left knee. She believes that she is weak in the left arm and leg but I think pain is her more prominent symptom. She denies face pain. Patient does admit to being depressed. EEG showed right temporal spikes and she has a nearly lifelong history of epilepsy intermittently. Apparently, the patient had been on an anticonvulsant but I am not sure what this was. This was stopped earlier this year. Currently she is on levetiracetam 750 milligrams twice daily. She has had extensive testing so far in the hospital. MRI of the brain, with and without contrast, was unremarkable. MRI of the cervical spine with and without contrast was unremarkable as well. MRI of the thoracic spine with and without contrast showed enhancing lesions in the T3, T4, T5, T10, and T12 vertebral bones. This was suspicious for metastases. She had oncology evaluation and no breast masses were noted. ESR and CRP are quite normal. CT angiography of the head neck were unremarkable as was the echocardiogram. She is afebrile. Results & Data ([facility]) Vital Signs (Past 12 Hours) Vital Signs Temp Pulse Pulse Resp BP Pulse Ox Pulse Ox 05/26/22 08:24 95 05/26/22 08:00 59 L 05/26/22 07:33 36.7 C 60 16 103/63 95 05/26/22 03:39 36.7 C 67 16 105/65 96 05/25/22 22:59 36.9 C 77 14 102/63 95 O2 Del Method O2 Del Method 05/26/22 08:24 Room Air 05/26/22 08:00 05/26/22 07:33 Room Air 05/26/22 03:39 Room Air 05/25/22 22:59 Room Air Exam (Neuro) Physical Exam: The patient is awake, alert, and attentive. Speech is normal without any aphasia or dysarthria. Her mood is good and her affect is appropriate. She is pleasant and cooperative. Extraocular eye muscles are intact without nystagmus. Visual acuity and visual orellana seem normal grossly to confrontation. There are no deficits to sensation in the face in all 3 distributions of the fifth cranial nerve bilaterally. Corneal reflexes are positive bilaterally. Facial strength and symmetry was normal bilaterally. Hearing seems normal bilaterally. Palate moves well without asymmetry. There is normal sternocleidomastoid and trapezius (shoulder shrug) strength bilaterally. Tongue is midline with good strength bilaterally. Neck has a full range of motion without discomfort. Cervical, thoracic, and lumbar spine are nontender to palpation. Gait was not tested but stance in bed is reasonable. With outstretched arms there is no drift. There are no resting, postural, or action tremors. There is no ataxia with finger to nose testing. There is good facility in the hands. No other abnormal involuntary movements are noted. Motor strength Is quite variable. She has giveaway weakness ( sometime secondary to pain and other times not ) in the left arm and leg but with coaxing I get equal strength in all limbs both proximally and distally The limbs have good tone without rigidity or spasticity. There is no atrophy noted in the muscles. Sensory examination reveals that she has some decreased sensation to pin and touch diffusely in the left arm and leg and some of the anterior chest on the left Reflexes are 2/4 in the biceps, triceps, brachioradialis, quadriceps, and Achilles tendons bilaterally. There is no clonus bilaterally. Toes are downgoing with plantar stimulation bilaterally. PG Care Time/CCT Total # of Minutes Spent Total Time Spent with Patient: Total time spent is greater than 50% in coordination of care (as documented) at patient's floor/unit and/or counseling patient: Coding Level of Care Code 39435 Subseq Hosp Care Lvl 3 Diagnoses Seizure disorder G40.909 Left-sided weakness R53.1 Abnormal MRI, thoracic spine R93.7 Joint pain M25.50 Time Spent (min) 60 Comment add modifiers as able
[2022-05-26] MEDS ORDERED: diazePAM 2 MG TABLET PO ONE (10:33)
[2022-05-26] MEDS: cefTRIAXone SODIUM 2,000 MG in DEXTROSE 5% 50 ML IV SCH (14:35)
[2022-05-26] MEDS: diazePAM 2 MG TABLET PO SCH ×2 (15:03→20:36)
--- NOTE | 2022-05-26 18:05 | Hospitalist Progress Note ---
Date of Service May 26, 2022 Assessment & Plan (1) Seizure disorder: Plan: h/o epilepsy. Stopped AEDs in the past . Seizures have been occuring since March per family. Post ictal Left sided weakness has been noted at home intermittently and generally she has not been able to walk for months. Cont Keppra at 750mg BID dosing. (2) Left-sided weakness: Plan: Etiologies include but are not limited to post-ictal state, paraneoplastic syndrome (such as stiff person syndrome), infectious etiology such as Lyme disease (improved on third day abx but technically negative western blot), functional conversion syndrome in setting of depression. As MRI revealed no evidence of spinal cord compression and it doesn't appear that decadron helped much, this will be stopped today. Will cont ceftriaxone pending ID consult for clarification of western blot findings. Will cont with trial of diazepam to see if her proximal muscle stiffness responds. Awaiting autoantibodies and rheumatologic screening, also. CK normal and aldolase pending. If all normal and she is still having symptoms, may consider psychiatry consult after the weekend. Discussed the case with Dr. Cruz (neurology). (3) Abnormal MRI, thoracic spine: Plan: concerning for metastatic disease. Working on getting a diagnosis first. Will likely taper off decadron over next few days, which was given empirically, and see how she does. Bone scan per Onc recommendations. (4) Breast mass, right: Plan: New weight loss reported with night sweats. CT scan c/a/p reveals a right breast mass. Oncology consulted and diagnostic mammogram recommended with US guided biopsy. Clinical picture is concerning for metastatic breast cancer. Tumor markers are pending. Contacted breast center regarding possibility of getting diagnostic studies as inpatient. Awaiting a call back. (5) PFO (patent foramen ovale): Plan: ASA 81mg daily for prophylaxis. LE US negative for DVT and hypercoagulable workup is pending. (6) DVT prophylaxis: Plan: Lovenox added with possible malignancy and continued immobilization. Full Code Dispo-cont PCU monitoring. Family updated at the bedside. Discussed the case with the primary RN. Yumiko Gaona DO [facility] Hospitalist Admission and Anticipated Discharge Date Admission Date: May 23, 2022 Subjective Follow-up follow-up for left-sided weakness, seizure disorder 36 yo F presents with acute weakness and numbness with pain on her left arm and leg associated with chest pain. Pain still present but better today Her weakness appears to be much better today mom at bedside and confirms that patient has been needing a wheelchair intermittently with ongoing seizures and left sided weakness since March. The trigger for them to bring her in was the new chest pain. She appears more energetic today and is sitting up Still with self-described stiffness in proximal limbs wtih pain Review of Systems Review of Systems: All systems were reviewed and negative except as indicated above. Physical Exam Physical Exam: CONSTITUTIONAL: WNWD, vitals as above, generally NAD, moving her right arm and leg more freely today with less weakness noted. EYES: pupils are round and equal bilaterally, normal conjunctivae ENT: external ear and nose normal, MMM, no facial asymmetry with face at rest or when she smiles. NECK: trachea midline RESPIRATORY: clear to auscultation bilaterally, no crackles, rales or wheezes, normal respiratory effort CARDIOVASCULAR: regular rate and rhythm, S1 and 2 heard without murmurs, gallops or rubs, no JVD, no peripheral edema CHEST: inspection of chest was normal GASTROINTESTINAL: soft, nontender, ND, no guarding. MUSCULOSKELETAL: today she can lift her arm more easily against gravity. 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 Less stiffness but still there with passive movement and some guarding 2/2 pain and discomfort that is expected from the movement. SKIN: warm and dry NEUROLOGIC: CN 2-12 grossly intact,decreased sensation on the left side (arm and leg) compared to the normal right side. normal cognition, normal speech, no tremor PSYCHIATRIC: alert cooperative and oriented. Results & Data Results & Data ([facility]) Vital Signs (Past 12 Hours) Vital Signs Temp Pulse Pulse Resp BP Pulse Ox Pulse Ox 05/26/22 15:29 37.2 C 63 17 99/58 L 96 05/26/22 11:53 36.6 C 60 16 100/59 L 96 05/26/22 08:24 95 05/26/22 08:00 59 L 05/26/22 07:33 36.7 C 60 16 103/63 95 O2 Del Method O2 Del Method 05/26/22 15:29 Room Air 05/26/22 11:53 05/26/22 08:24 Room Air 05/26/22 08:00 05/26/22 07:33 Room Air Laboratory Results Cardiac Enzymes 05/26/22 Range/Units 10:56 Total Creatine Kinase 37 (26-192) U/L Medications Administered Current Inpatient Medications Acetaminophen (Acetaminophen 325 Mg Tab) 650 mg PO Q4H PRN PRN Reason: pain/fever Stop: 06/22/22 15:27 Last Admin: 05/26/22 03:54 Dose: 650 mg Aspirin (Aspirin 81 Mg Ectab) 81 mg PO QAM [facility] Stop: 06/22/22 08:59 Last Admin: 05/26/22 10:13 Dose: 81 mg Diazepam (Diazepam 2 Mg Tablet) 2 mg PO TID [facility] Stop: 06/25/22 13:59 Last Admin: 05/26/22 15:03 Dose: 2 mg Enoxaparin Sodium (Enoxaparin Inj 40 Mg/0.4 Ml Syr) 40 mg SQ QAM [facility] Stop: 06/23/22 08:59 Last Admin: 05/26/22 10:14 Dose: 40 mg Gabapentin (Gabapentin 300 Mg Cap) 300 mg PO HS [facility] Stop: 06/24/22 20:59 Last Admin: 05/25/22 20:33 Dose: 300 mg Ceftriaxone Sodium 2,000 mg/ (Dextrose) 70 mls @ 100 mls/hr IV Q24H [facility]; Protocol Stop: 06/03/22 13:29 Last Infusion: 05/26/22 15:17 Dose: Infused Ketorolac Tromethamine (Ketorolac Tromethamine 15 Mg/Ml Vial) 15 mg IV Q6H PRN PRN Reason: Pain Stop: 05/28/22 16:23 Last Admin: 05/25/22 07:57 Dose: 15 mg Levetiracetam (Levetiracetam 250 Mg Tab) 750 mg PO BID [facility] Stop: 06/24/22 20:59 Last Admin: 05/26/22 10:12 Dose: 750 mg
[2022-05-27 00:07] LABS: Anti-Thrombin III Activity 128 % normal (80-135); PTT LA Screen 35 sec (<=40)
[2022-05-27] MEDS: ACETAMINOPHEN 325 MG TAB PO PRN (07:57)
[2022-05-27] MEDS: diazePAM 2 MG TABLET PO SCH ×2 (07:57→13:35)
[2022-05-27] MEDS: ASPIRIN 81 MG ECTAB PO SCH (07:58)
[2022-05-27] MEDS: levETIRAcetam 250 MG TAB PO SCH ×2 (07:58→22:00)
[2022-05-27] MEDS: ENOXAPARIN INJ 40 MG/0.4 ML SYR SQ SCH (07:58)
[2022-05-27 08:21] LABS: Hematocrit (blood only) 35.5 % (34.1-44.9); Mean Corpuscular Hemoglobin 30.3 pg (25.0-34.0); Mean Corpuscular Hgb Conc 33.8 g/dL (32.0-36.0); Mean Corpuscular Volume 89.6 fL (80.0-100.0); Mean Platelet Volume 9.7 fL (9.4-12.3); Platelet Count 298 K/uL (130-400); RDW Coefficient of Variation 12.6 % (11.5-14.5); RDW Standard Deviation 41.6 fL (36.4-46.3); Red Blood Count 3.96 M/uL (3.93-5.22); White Blood Count 8.33 K/ul (4.8-10.8)
[2022-05-27 08:43] LABS: BUN Creatinine Ratio 31.6 (10-20); Calcium 9.5 mg/dl (8.5-10.1); Creatinine Clr Calc Pharmacy 145.3 ml/min; Est GFR (African American) 140.2 ml/min; Potassium 3.8 mmol/L (3.5-5.1)
[2022-05-27] MEDS: cefTRIAXone SODIUM 2,000 MG in DEXTROSE 5% 50 ML IV SCH (13:34)
--- NOTE | 2022-05-27 13:43 | Electrocardiogram Report ---
Test Reason : Blood Pressure : / mmHG Vent. Rate : 069 BPM Atrial Rate : 069 BPM P-R Int : 156 ms QRS Dur : 106 ms QT Int : 410 ms P-R-T Axes : 054 051 060 degrees QTc Int : 439 ms Normal sinus rhythm Normal ECG When compared with ECG of 23-MAY-2022 05:59, No significant change was found Confirmed by Uriel Ledbetter ([id number]) on 05/27/2022 1:43:08 PM Referred By: REFERRED SELF Confirmed By:Uriel Ledbetter
--- NOTE | 2022-05-27 14:33 | Hospitalist Progress Note ---
Date of Service May 27, 2022 Assessment & Plan (1) Seizure disorder: Plan: h/o epilepsy. Stopped AEDs in the past-uncertain what she had been taking. Seizures have been occurring since March per family. Post ictal Left sided weakness has been noted at home intermittently and generally she has not been able to walk for months; using wheelchair to get around. Cont Keppra at 750mg BID dosing. Improved and no further seizures since admission. (2) Left-sided weakness: Plan: Etiologies include but are not limited to post-ictal state, paraneoplastic syndrome (such as stiff person syndrome), infectious etiology such as Lyme disease (improved on third day abx but technically negative western blot), functional conversion syndrome in setting of depression. As MRI revealed no evidence of spinal cord compression and it doesn't appear that decadron helped much, and there has dayana no regression of symptoms off this today. Will cont ceftriaxone pending ID consult for clarification of western blot findings. Will cont with trial of diazepam to see if her proximal muscle stiffness responds. She is slightly fatigued with diazepam, especially in combination with the Keppra. Changed meds to separate the administration of these and increased night diazepam only. 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 Awaiting autoantibodies and rheumatologic screening, also. CK normal and aldolase pending-doubt inflammatory myositis or rheumatologic disorder given negative inflammatory mar kers consistently. If all normal and she is still having symptoms, may consider psychiatry consult after the weekend. (3) Abnormal MRI, thoracic spine: Plan: concerning for metastatic disease. Working on getting a diagnosis first. Need diagnostic mammogram and US guided biopsy. Cannot do this with inpatient radiology dept but may be able to orchestrate through the breast center downstairs. Will ask after the weekend. Bone scan per Onc recommendations. (4) Breast mass, right: Plan: New weight loss reported with night sweats. CT scan c/a/p reveals a right breast mass. Oncology consulted and diagnostic mammogram recommended with US guided biopsy. Clinical picture is concerning for metastatic breast cancer. Tumor markers are pending. Additional plan as above. (5) PFO (patent foramen ovale): Plan: ASA 81mg daily for prophylaxis. LE US negative for DVT and hypercoagulable workup is pending. (6) DVT prophylaxis: Plan: Lovenox added with possible malignancy and continued immobilization. Full Code Dispo-cont PCU monitoring. Mom updated at the bedside. DO [facility] Admission and Anticipated Discharge Date Admission Date: May 23, 2022 Subjective 36 yo F presents with acute weakness and numbness with pain on her left arm and leg associated with chest pain. Pain still present but improving today Reports pain is worse in the morning-was 8/10 this am. Weakness is again improving, appears to be improving more rapidly now since starting diazepam but still difficult to tell if this is absolutely the cause as she may have gotten better on her own and the ceftriaxone is also on board. She reports ambulating with the walker several times today; still reports feeling like she would fall without the walker. She has had no regression off the decadron, so it seems clear that wasn't helping her much. Tolerating PO and she is eating. Review of Systems Review of Systems: All systems were reviewed and negative except as indicated above. Physical Exam Physical Exam: CONSTITUTIONAL: WNWD, vitals as above, generally NAD, clinically improved. EYES: pupils are round and equal bilaterally, normal conjunctivae ENT: external ear and nose normal, MMM, no facial asymmetry with face at rest or when she smiles. NECK: trachea midline RESPIRATORY: clear to auscultation bilaterally, no crackles, rales or wheezes, normal respiratory effort CARDIOVASCULAR: regular rate and rhythm, S1 and 2 heard without murmurs, gallops or rubs, no JVD, no peripheral edema CHEST: inspection of chest was normal GASTROINTESTINAL: soft, nontender, ND, no guarding. MUSCULOSKELETAL: she can now lift her arm against gravity and resist examiner in flexion forward. 4/5 strength in left arm in all planes of motion, limited by pain in her upper arm. 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 Left leg--can flex her knee to a greater degree today and is tolerating me manipulating her knee to flex it even further. Strength is 4/5 flexion, extension of knee, 5/5 hip flexion/extension and 4/5 dorsiflexion/plantarflexion which is greatly improved. SKIN: warm and dry NEUROLOGIC: CN 2-12 grossly intact,sensation left compared with right is almost the same today. normal cognition, normal speech, no tremor PSYCHIATRIC: alert cooperative and oriented. Results & Data Results & Data ([facility]) Vital Signs (Past 12 Hours) Vital Signs Temp Pulse Pulse Resp BP Pulse Ox O2 Del Method 05/27/22 11:29 36.8 C 57 L 18 96/59 L 97 Room Air 05/27/22 08:51 48 L 05/27/22 08:49 36.3 C L 05/27/22 07:43 37.4 C 50 L 18 97/60 L 97 Room Air 05/27/22 04:53 36.6 C 55 L 16 93/53 L 97 Room Air Laboratory Results Short CBC 05/27/22 Range/Units 07:59 WBC 8.33 (4.8-10.8) K/ul Hgb 12.0 (12.0-16.0) g/dl Hct 35.5 (34.1-44.9) % Plt Count 298 (130-400) K/uL BMP 05/27/22 07:59 Sodium 139 Potassium 3.8 Chloride 105 Carbon Dioxide 28 BUN 18 Creatinine 0.57 L Glucose 86 Calcium 9.5 Medications Administered Current Inpatient Medications Acetaminophen (Acetaminophen 325 Mg Tab) 650 mg PO Q4H PRN PRN Reason: pain/fever Stop: 06/22/22 15:27 Last Admin: 05/27/22 07:57 Dose: 650 mg Aspirin (Aspirin 81 Mg Ectab) 81 mg PO QAM [facility] Stop: 06/22/22 08:59 Last Admin: 05/27/22 07:58 Dose: 81 mg Diazepam (Diazepam 2 Mg Tablet) 2 mg PO TID [facility] Stop: 06/25/22 13:59 Last Admin: 05/27/22 13:35 Dose: 2 mg Enoxaparin Sodium (Enoxaparin Inj 40 Mg/0.4 Ml Syr) 40 mg SQ QAM [facility] Stop: 06/23/22 08:59 Last Admin: 05/27/22 07:58 Dose: 40 mg Gabapentin (Gabapentin 300 Mg Cap) 300 mg PO HS [facility] Stop: 06/24/22 20:59 Last Admin: 05/25/22 20:33 Dose: 300 mg Ceftriaxone Sodium 2,000 mg/ (Dextrose) 70 mls @ 100 mls/hr IV Q24H [facility]; Protocol Stop: 06/03/22 13:29 Last Infusion: 05/27/22 14:18 Dose: Infused Ketorolac Tromethamine (Ketorolac Tromethamine 15 Mg/Ml Vial) 15 mg IV Q6H PRN PRN Reason: Pain Stop: 05/28/22 16:23 Last Admin: 05/25/22 07:57 Dose: 15 mg Levetiracetam (Levetiracetam 250 Mg Tab) 750 mg PO BID [facility] Stop: 06/24/22 20:59 Last Admin: 05/27/22 07:58 Dose: 750 mg
[2022-05-27] MEDS ORDERED: diazePAM 5 MG TABLET PO SCH (22:00)
[2022-05-28] MEDS: diazePAM 2 MG TABLET PO SCH ×2 (05:16→12:40)
[2022-05-28] MEDS: levETIRAcetam 250 MG TAB PO SCH (08:31)
[2022-05-28] MEDS: ENOXAPARIN INJ 40 MG/0.4 ML SYR SQ SCH (08:31)
[2022-05-28] MEDS: ASPIRIN 81 MG ECTAB PO SCH (08:31)
[2022-05-28] MEDS: ACETAMINOPHEN 325 MG TAB PO PRN ×2 (08:34→21:02)
--- NOTE | 2022-05-28 11:59 | Neurology Progress Note ---
Date of Service May 28, 2022 Assessment & Plan (1) Seizure disorder: (2) Left-sided weakness: (3) Abnormal MRI, thoracic spine: (4) Joint pain: Plan This patient has a nearly lifelong history of epilepsy and has right temporal sharp waves on EEG. She was initiated on levetiracetam and currently is taking 750 milligrams twice daily. She tolerates this. Patient has left-sided pain mostly in joints and has some giveaway weakness of the left arm and leg. I am not convinced there is any pathologic weakness in the arm and leg. She has no focal neurologic findings. There is no significant rigidity in the limbs. MRI of the thoracic spine showed enhancement in multiple vertebral bones consistent with metastasis. There is a possible right breast mass seen on CT but was not palpable on exam by Dr. Caceres The patient has equivocal Lyme IgM and IgG. I am concerned that she does have Lyme disease creating her joint pain. I wondering if Lyme disease could create bone enhancement seen on MRI also. I notes a normal sed rate and CRP which would be unusual for metastatic cancer. Recommendations: 1. mammogram needed to evaluate for breast cancer. 2. I would continue IV ceftriaxone 2 grams daily while in the hospital. I might consider continuing this is an outpatient via extended IV or PICC line for a total of 4 weeks. Alternatively doxycycline 100 milligrams twice a day for 3-4 weeks after discharge. 3. Continue increasing activity, physical and occupational therapy. 4. continue levetiracetam 750 milligrams twice daily. 5. could titrate gabapentin as needed for pain (for now 300 milligrams at bedtime, or twice daily). 6. I am not sure a lumbar puncture would be useful at this stage. she has already been on IV antibiotics and has no meningeal signs or encephalopathy. 7. She is getting a bone scan today. Overall, I spent a total of 35 minutes with this case including review of records, direct evaluation the patient at bedside, and discussion of the case with patient, mother, and RN at bedside. Admission and Anticipated Discharge Date Admission Date: May 23, 2022 Subjective the patient still has some complain of left shoulder and hip/anterior thigh pain particularly with movement. These are improved compared to when I saw her 2 days ago. She is walking more and feeling better in general. Blood pressure is 121/67 and she is afebrile. CBC was unremarkable yesterday and Chem profile showed no significant issues. She has had no seizures since I last saw her. Results & Data ([facility]) Vital Signs (Past 12 Hours) Vital Signs Temp Pulse Resp BP Pulse Ox O2 Del Method O2 Flow Rate 05/28/22 08:00 Room Air, Nasal Cannula 4 05/28/22 08:41 36.8 C 69 16 121/67 98 Room Air 05/28/22 03:40 36.7 C 57 L 16 94/57 L 96 Room Air 05/28/22 00:34 36.6 C 70 16 99/61 L 96 Room Air Exam (Neuro) Physical Exam: She is awake and alert. Speech is without obvious aphasia or dysarthria. There are no abnormal involuntary movements. She has no rigidity in any limb and no cogwheeling. Strength is symmetrical in the limbs with coaxing and I do not appreciate any obvious weakness in the left arm or leg compared to the right. She will display giveaway weakness at times. PG Care Time/CCT Total # of Minutes Spent Total Time Spent with Patient: Total time spent is greater than 50% in coordination of care (as documented) at patient's floor/unit and/or counseling patient: Coding Level of Care Code 38408 Subseq Hosp Care Lvl 3 Diagnoses Seizure disorder G40.909 Left-sided weakness R53.1 Abnormal MRI, thoracic spine R93.7 Joint pain M25.50
--- NOTE | 2022-05-28 13:03 | Hospitalist Progress Note ---
Date of Service May 28, 2022 Assessment & Plan (1) Seizure disorder: Plan: h/o epilepsy. Stopped AEDs in the past-uncertain what she had been taking. Seizures have been occurring since March per family. Post ictal Left sided weakness has been noted at home intermittently and generally she has not been able to walk for months; using wheelchair to get around. Cont Keppra at 750mg BID dosing. Improved and no further seizures since admission. (2) Left-sided weakness: Plan: Etiologies include but are not limited to post-ictal state, paraneoplastic syndrome (such as stiff person syndrome), infectious etiology such as Lyme disease (improved on third day abx but technically negative western blot), functional conversion syndrome in setting of depression. As MRI revealed no evidence of spinal cord compression and it doesn't appear that decadron helped much, and there has dayana no regression of symptoms off this today. Will cont ceftriaxone pending ID consult for clarification of western blot findings. Diazepam isn't drasstically improving her symptoms and will stopo this with added drowsiness. Awaiting autoantibodies and rheumatologic screening, also. CK normal and aldolase pending-doubt inflammatory myositis or rheumatologic disorder given negative inflammatory markers consistently. (3) Abnormal MRI, thoracic spine: Plan: initially concerning for metastatic disease, however, bone scan reveals benign hemangiomas which is reassuring. Working on getting a diagnosis first. Need diagnostic mammogram and US guided biopsy. Set up for Sat at breast center. (4) Breast mass, right: Plan: New weight loss reported with night sweats. CT scan c/a/p reveals a right breast mass. Oncology consulted and diagnostic mammogram recommended with US guided biopsy. Tumor markers are pending. Additional plan as above. (5) PFO (patent foramen ovale): Plan: ASA 81mg daily for prophylaxis. LE US negative for DVT and hypercoagulable workup is pending. (6) DVT prophylaxis: Plan: Lovenox added with possible malignancy and continued immobilization. Full Code Dispo-transfer to med surg. Plan for discharge to home on Sat. Yumiko Gaona DO [facility] Hospitalist Admission and Anticipated Discharge Date Admission Date: May 23, 2022 Subjective 36 yo F presents with acute left weakness and pain, active seizures. She is improved with respect to her strength and pain. Pain still persists in her right deltoid, right hip although less so and most severe in her right knee. She is walking better but still requiring a walker. Bone scan revealed hemangiomas that are benign. Set up breast evaluation for Wed at 2:30pm at [facility] door. Toleerating PO and doing well overall. No seizures since admission. Pain reported in her chest and left arm/leg when she woke up this am. Review of Systems Review of Systems: All systems were reviewed and negative except as indicated above. Physical Exam Physical Exam: CONSTITUTIONAL: WNWD, vitals as above, generally NAD, clinically improved. EYES: pupils are round and equal bilaterally, normal conjunctivae ENT: external ear and nose normal, MMM, no facial asymmetry with face at rest or when she smiles. NECK: trachea midline RESPIRATORY: clear to auscultation bilaterally, no crackles, rales or wheezes, normal respiratory effort CARDIOVASCULAR: regular rate and rhythm, S1 and 2 heard without murmurs, ga llops or rubs, no JVD, no peripheral edema CHEST: inspection of chest was normal GASTROINTESTINAL: soft, nontender, ND, no guarding. MUSCULOSKELETAL: she can now lift her arm against gravity and resist examiner in flexion forward. 4/5 strength in left arm in all planes of motion, limited by pain in her upper arm. 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 Left leg--can flex her knee to a greater degree today and is tolerating me manipulating her knee to flex it even further. Strength is 4/5 flexion, extension of knee, 5/5 hip flexion/extension and 4/5 dorsiflexi on/plantarflexion which is greatly improved. SKIN: warm and dry NEUROLOGIC: CN 2-12 grossly intact,sensation left compared with right is almost the same today. normal cognition, normal speech, no tremor PSYCHIATRIC: alert cooperative and oriented. Results & Data Results & Data ([facility]) Vital Signs (Past 12 Hours) Vital Signs Temp Pulse Resp BP Pulse Ox O2 Del Method O2 Flow Rate 05/28/22 08:00 Room Air, Nasal Cannula 4 05/28/22 08:41 36.8 C 69 16 121/67 98 Room Air 05/28/22 03:40 36.7 C 57 L 16 94/57 L 96 Room Air Medications Administered Current Inpatient Medications Acetaminophen (Acetaminophen 325 Mg Tab) 650 mg PO Q4H PRN PRN Reason: pain/fever Stop: 06/22/22 15:27 Last Admin: 05/28/22 08:34 Dose: 650 mg Aspirin (Aspirin 81 Mg Ectab) 81 mg PO QAM [facility] Stop: 06/22/22 08:59 Last Admin: 05/28/22 08:31 Dose: 81 mg Diazepam (Diazepam 2 Mg Tablet) 2 mg PO BID@0600,1400 [facility] Stop: 06/27/22 05:59 Last Admin: 05/28/22 12:40 Dose: 2 mg Diazepam (Diazepam 5 Mg Tablet) 5 mg PO DAILY@2200 [facility]ES [facility] Stop: 06/26/22 21:59 Last Admin: 05/27/22 22:01 Dose: 5 mg Enoxaparin Sodium (Enoxaparin Inj 40 Mg/0.4 Ml Syr) 40 mg SQ QAM [facility] Stop: 06/23/22 08:59 Last Admin: 05/28/22 08:31 Dose: 40 mg Gabapentin (Gabapentin 300 Mg Cap) 300 mg PO HS [facility] Stop: 06/24/22 20:59 Last Admin: 05/25/22 20:33 Dose: 300 mg Ceftriaxone Sodium 2,000 mg/ (Dextrose) 70 mls @ 100 mls/hr IV Q24H [facility]; Protocol Stop: 06/03/22 13:29 Last Infusion: 05/27/22 14:18 Dose: Infused Ketorolac Tromethamine (Ketorolac Tromethamine 15 Mg/Ml Vial) 15 mg IV Q6H PRN PRN Reason: Pain Stop: 05/28/22 16:23 Last Admin: 05/25/22 07:57 Dose: 15 mg Levetiracetam (Levetiracetam 250 Mg Tab) 750 mg PO BID [facility] Stop: 06/24/22 20:59 Last Admin: 05/28/22 08:31 Dose: 750 mg
[2022-05-28 13:51] LABS: Anti Nuclear Antibody Screen NEGATIVE (NEGATIVE); Rheumatoid Factor <14 IU/mL (<14)
--- NOTE | 2022-05-28 14:18 | Nuclear Medicine Report ---
WHOLE-BODY NUCLEAR BONE SCAN CLINICAL HISTORY: Bone lesions seen by CT and MRI. COMPARISON STUDY: CT scan of the chest, abdomen, and pelvis dated 05/24/2022. MRI of the thoracic spin e dated 05/23/2022. TECHNIQUE: Three hours following the IV administration of 27.0 mCi of technetium 99m MDP, whole body nuclear bone scan was performed in the anterior and posterior projections. FINDINGS: Bladder distention degrades evaluation of the pelvis. There is no abnormal osseous tracer deposition identified typical in appearance for bony metastatic disease. Minimal degenerative activity is noted in the shoulders and ankles. There is expected excreted activity within the renal collecting system and bladder. IMPRESSION: 1. Normal nuclear bone scan. 2. The osseous lesions in the thoracic spine seen by CT and MRI are benign hemangiomas. No further ev aluation is required. ACT 112: Negative or not required by law. Electronically signed by: Desmond Del Real M.D. 05/28/2022 2:16 PM
[2022-05-28] MEDS: cefTRIAXone SODIUM 2,000 MG in DEXTROSE 5% 50 ML IV SCH (14:20)
[2022-05-29] MEDS: levETIRAcetam 250 MG TAB PO SCH ×3 (00:27→20:30)
[2022-05-29 06:07] LABS: B2 Glycoprotein IgG <2.0 U/mL (<20.0); B2 Glycoprotein IgM <2.0 U/mL (<20.0)
[2022-05-29] MEDS: ASPIRIN 81 MG ECTAB PO SCH (08:23)
[2022-05-29] MEDS: ENOXAPARIN INJ 40 MG/0.4 ML SYR SQ SCH (08:23)
[2022-05-29] MEDS: ACETAMINOPHEN 325 MG TAB PO PRN (08:28)
--- NOTE | 2022-05-29 11:06 | XRay Report ---
LEFT SHOULDER 3 VIEWS HISTORY: Left shoulder persistent pain, dec range of motion, no trauma COMPARISON: None. FINDINGS: There is no fracture or dislocation. Soft tissues are unremarkable. The left clavicle is in tact. Cartilage spaces are maintained for age. The punctate metallic foreign body within the soft tis sues of the mid upper arm. IMPRESSION: 1. No fracture or dislocation within the left shoulder. 2. A punctate metallic foreign body within the soft tissues of the mid left upper arm. This could be external to the patient. ACT 112: Negative or not required by law. Electronically signed by: Meng Rodriguez M.D. 05/29/2022 11:05 AM
--- NOTE | 2022-05-29 12:16 | XRay Report ---
XR knee LT 3V CLINICAL HISTORY: persistent left knee pain COMPARISON: None FINDINGS: Alignment of the left knee is anatomic. No acute fracture. No joint effusion is present. T here is no suspicious osseous lesion. There may be mild medial compartment joint space narrowing. IMPRESSION: 1. No acute fracture or joint effusion of the left knee. 2. Possible mild medial compartment joint space narrowing. ACT 112: Negative or not required by law. Electronically signed by: Harrison Novak M.D. 05/29/2022 12:14 PM
--- NOTE | 2022-05-29 14:37 | Hospitalist Progress Note ---
Date of Service May 29, 2022 Assessment & Plan (1) Seizure disorder: Plan: h/o epilepsy. Stopped AEDs in the past-uncertain what she had been taking. Seizures have been occurring since March per family. Post ictal Left sided weakness has been noted at home intermittently and generally she has not been able to walk for months; using wheelchair to get around. Cont Keppra at 750mg BID dosing. Improved and no further seizures since admission. Ambulating with w isabelaer, will plan for home with family support. Cont Keppra with f/u Neuro in a couple of weeks. (2) Left-sided weakness: Plan: Etiologies include but are not limited to post-ictal state, paraneoplastic syndrome (such as stiff person syndrome), infectious etiology such as Lyme disease (improved on third day abx but technically negative western blot), functional conversion syndrome in setting of depression. As MRI revealed no evidence of spinal cord compression and it doesn't appear that decadron helped much, and there has dayana no regression of symptoms off this today. Will cont ceftriaxone with transition to doxycycline at time of discharge per ID recommendations. Notably they didn't clarify if the WB was positive per se, but felt the benefit of treatment may outweigh the risk of not. Family is in agreement with this. Diazepam isn't drastically improving her symptoms and will stopo this with added drowsiness. Rheumatologic workup is negative to date and no evidence of synovitis clinically or on the xrays. CK normal and aldolase pending-doubt inflammatory myositis or given negative inflammatory markers consistently. (3) Abnormal MRI, thoracic spine: Plan: initially concerning for metastatic disease, however, bone scan reveals benign hemangiomas which is reassuring. Working on getting a diagnosis first. Need diagnostic mammogram and US guided biopsy. Set up for Sat at breast center. (4) Breast mass, right: Plan: New weight loss reported with night sweats. CT scan c/a/p reveals a right breast mass. Oncology consulted and diagnostic mammogram recommended with US guided biopsy. Tumor markers are pending. Additional plan as above. (5) PFO (patent foramen ovale): Plan: ASA 81mg daily for prophylaxis. LE US negative for DVT and hypercoagulable workup is pending. (6) DVT prophylaxis: Plan: Lovenox added with possible malignancy and continued immobilization. Full Code Dispo-transfer to med surg. Plan for discharge to home on Sat. Yumiko Gaona DO [facility] Hospitalist Admission and Anticipated Discharge Date Admission Date: May 23, 2022 Subjective 36 yo F presents with acute left weakness and pain, active seizures. She is improved with respect to her strength and pain. Pain still persists in her right deltoid, right hip although less so and most severe in her right knee. She is walking better but still requiring a walker. Ambulating to and from the bathroom about 3 times with min help and walker. Encouraged to ambulate in the hallways HIV consent obtain and and additional infectious disease labs obtained per ID recommendations. She is eating well and reports feeling well today. No seizures. Review of Systems Review of Systems: All systems were reviewed and negative except as indicated above. Physical Exam Physical Exam: CONSTITUTIONAL: WNWD, vitals as above, generally NAD, clinically improved. EYES: pupils are round and equal bilaterally, normal conjunctivae ENT: external ear and nose normal, MMM, no facial asymmetry with face at rest or when she smiles. NECK: trachea midline RESPIRATORY: clear to auscultation bilaterally, no crackles, rales or wheezes, normal respiratory effort CARDIOVASCULAR: regular rate and rhythm, S1 and 2 heard without murmurs, gallops or rubs, no JVD, no peripheral edema CHEST: inspection of chest was normal GASTROINTESTINAL: soft, nontender, ND, no guarding. MUSCULOSKELETAL: 5/5 strength throughout with some limitation in movement of the left arm and leg. SKIN: warm and dry NEUROLOGIC: CN 2-12 grossly intact,sensation left compared with right is almost the same today. normal cognition, normal speech, no tremor PSYCHIATRIC: alert cooperative and oriented. Results & Data Results & Data ([facility]) Vital Signs (Past 12 Hours) Vital Signs Temp Pulse Resp BP Pulse Ox O2 Del Method 05/29/22 07:26 36.8 C 66 12 100/65 96 Room Air Diagnostic Findings Knee X-Ray 05/29/22 08:55 XR knee LT 3V CLINICAL HISTORY: persistent left knee pain COMPARISON: None FINDINGS: Alignment of the left knee is anatomic. No acute fracture. No joint effusion is present. There is no suspicious osseous lesion. There may be mild medial compartment joint space narrowing. IMPRESSION: 1. No acute fracture or joint effusion of the left knee. 2. Possible mild medial compartment joint space narrowing. ACT 112: Negative or not required by law. Electronically signed by: Harrison Novak M.D. 05/29/2022 12:14 PM Shoulder X-Ray 05/29/22 08:55 LEFT SHOULDER 3 VIEWS HISTORY: Left shoulder persistent pain, dec range of motion, no trauma COMPARISON: None. FINDINGS: There is no fracture or dislocation. Soft tissues are unremarkable. The left clavicle is intact. Cartilage spaces are maintained for age. The punctate metallic foreign body within the soft tissues of the mid upper arm. IMPRESSION: 1. No fracture or dislocation within the left shoulder. 2. A punctate metallic foreign body within the soft tissues of the mid left upper arm. This could be external to the patient. ACT 112: Negative or not required by law. Electronically signed by: Meng Rodriguez M.D. 05/29/2022 11:05 AM Medications Administered Current Inpatient Medications Acetaminophen (Acetaminophen 325 Mg Tab) 650 mg PO Q4H PRN PRN Reason: pain/fever Stop: 06/22/22 15:27 Last Admin: 05/29/22 08:28 Dose: 650 mg Aspirin (Aspirin 81 Mg Ectab) 81 mg PO QAM [facility] Stop: 06/22/22 08:59 Last Admin: 05/29/22 08:23 Dose: 81 mg Enoxaparin Sodium (Enoxaparin Inj 40 Mg/0.4 Ml Syr) 40 mg SQ QAM [facility] Stop: 06/23/22 08:59 Last Admin: 05/29/22 08:23 Dose: 40 mg Gabapentin (Gabapentin 300 Mg Cap) 300 mg PO HS [facility] Stop: 06/24/22 20:59 Last Admin: 05/25/22 20:33 Dose: 300 mg Ceftriaxone Sodium 2,000 mg/ (Dextrose) 70 mls @ 100 mls/hr IV Q24H [facility]; Protocol Stop: 06/03/22 13:29 Last Infusion: 05/28/22 15:02 Dose: Infused Levetiracetam (Levetiracetam 250 Mg Tab) 750 mg PO BID [facility] Stop: 06/24/22 20:59 Last Admin: 05/29/22 08:23 Dose: 750 mg
[2022-05-29] MEDS: cefTRIAXone SODIUM 2,000 MG in DEXTROSE 5% 50 ML IV SCH (14:46)
[2022-05-30] MEDS: ASPIRIN 81 MG ECTAB PO SCH (07:55)
[2022-05-30] MEDS: levETIRAcetam 250 MG TAB PO SCH (07:55)
[2022-05-30] MEDS: ENOXAPARIN INJ 40 MG/0.4 ML SYR SQ SCH (07:57)
--- NOTE | 2022-05-30 11:29 | Discharge Summary ---
Date of Service May 30, 2022 Admission HPI Per Admitting Provider This is a 36 yo [facility] female with PMhx of seizure disorder since age 4, not on any medication and has not seen a general practitioner for such. She had a period of time where she didn't have any seizures until being in her 20s. Most recently she experience a seizure 4 and 2 weeks ago where she remained at home. After both episodes she was unable to walk for about 3-3.5 hours. She is tired and feels ill, then slowly returns to her normal self. This morning the patient woke up and didn't feel herself. Her mother, Yolanda, is present at bedside and helps provide history. Pt took a nap this morning and around 10 am woke up again and reported not feeling right, at that point she was having chest pain, the left arm hurt, and left leg hurt and still does. She reports is as a 9/10 and constant, worse with movement. Her joints also hurt moreso than her muscles. Pt denies recent tick bite, last known was around age 22-23. She seems to have difficulty understanding [place]an or at least saying things in [place]an back to providers in the room. Family Hx: no known history of seizure disorders, cancers, heart disease, or strokes. Father recently diagnosed with diabetes. Surgical Hx: No surgical hx Discharge Exam CONSTITUTIONAL: WNWD, vitals as above, generally NAD, clinically improved. EYES: pupils are round and equal bilaterally, normal conjunctivae ENT: external ear and nose normal, MMM, no facial asymmetry with face at rest or when she smiles. NECK: trachea midline RESPIRATORY: clear to auscultation bilaterally, no crackles, rales or wheezes, normal respiratory effort CARDIOVASCULAR: regular rate and rhythm, S1 and 2 heard without murmurs, gallops or rubs, no JVD, no peripheral edema CHEST: inspection of chest was normal GASTROINTESTINAL: soft, nontender, ND, no guarding. MUSCULOSKELETAL: 5/5 strength throughout with some limitation in movement of the left arm and leg. SKIN: warm and dry NEUROLOGIC: CN 2-12 grossly intact,sensation left compared with right is almost the same today. normal cognition, normal speech, no tremor PSYCHIATRIC: alert cooperative and oriented. Discharge Data Allergies Allergy/AdvReac Type Severity Reaction Status Date / Time No Known Allergies Allergy Unverified 05/22/22 15:30 Consultations 05/22/22 16:36 ED Decision to Admit Stat 05/22/22 22:17 Consult Neurology Routine 05/23/22 19:48 Consult Oncology Routine 05/26/22 14:10 Consult Infectious Diseases Routine Ordered Studies 05/22/22 14:31 CT angio head w con Stat CT angio neck with con Stat CT head/brain wo con Stat 05/22/22 22:17 MR brain wo/w con Routine 05/23/22 15:26 US leg [US venous doppler LE BI] Routine 05/23/22 16:30 MR cervical spine wo/w con Urgent 05/23/22 16:36 MR thoracic spine wo/w con Urgent 05/24/22 13:10 CT abd pelvis wo con Routine CT chest diagnostic wo con Routine Hospital Course (1) Seizure disorder: h/o epilepsy. Stopped AEDs in the past-uncertain what she had been taking. Seizures have been occurring since March per family. Post ictal Left sided weakness has been noted at home intermittently and generally she has not been able to walk for months; using wheelchair to get around. Cont Keppra at 750mg BID dosing. Improved and no further seizures since admission. Ambulating with walker, will plan for home with family support. Cont Keppra with f/u Neuro in a couple of weeks. (2) Left-sided weakness: Etiologies include but are not limited to post-ictal state, paraneoplastic syndrome (such as stiff person syndrome), infectious etiology such as Lyme disease (improved on third day abx but technically negative western blot), functional conversion syndrome in setting of depression. As MRI revealed no evidence of spinal cord compression and it doesn't appear that decadron helped much, and there has dayana no regression of symptoms off this today. Will cont ceftriaxone with transition to doxycycline at time of discharge per ID recommendations. Notably they didn't clarify if the WB was positive per se, but felt the benefit of treatment may outweigh the risk of not. Family is in agreement with this. Diazepam isn't drastically improving her symptoms and will stopo this with added drowsiness. Rheumatologic workup is negative to date and no evidence of synovitis clinically or on the xrays. CK normal and aldolase pending-doubt inflammatory myositis or given negative inflammatory markers consistently. (3) Abnormal MRI, thoracic spine: initially concerning for metastatic disease, however, bone scan reveals benign hemangiomas which is reassuring. Working on getting a diagnosis first. Need diagnostic mammogram and US guided biopsy. Set up for Sat afternoon at breast center. (4) Breast mass, right: New weight loss reported with night sweats. CT scan c/a/p reveals a right breast mass. Oncology consulted and diagnostic mammogram recommended with US guided biopsy. Tumor markers are pending. Additional plan as above. (5) PFO (patent foramen ovale): ASA 81mg daily for prophylaxis. LE US negative for DVT and hypercoagulable workup is pending. (6) DVT prophylaxis: Lovenox added with possible malignancy and continued immobilization. Full Code Dispo-transfer to med surg. Plan for discharge to home on Sat. Yumiko Gaona DO [facility] Hospitalist Discharge Plan Discharge Items Patient Disposition: Home - Self-Care Reason For Visit: STROKE LIKE SYMPTOMS Discharge Diagnosis: Seizure disorder Left-sided weakness Possible Lyme infection Abnormal MRI of thoracic spine 2/2 benign hemangiomas Right breast mass Patent foramen ovale (PFO) Condition on Discharge: Good Activity: Resume your previous activity Non-emergency contact: Primary Care Provider and Neurologist Call non-emergency contact if: you have any medication questions, your symptoms worsen, your pain is not controlled, your pain is worsening, your pain is concerning for you and your temperature is above 101.5 Follow-up/Referrals: Esdras Godfrey DO [Physician] - 06/04/22 12:00 pm ([facility] [address] [place] [id number] ) Diet: Regular Addtl Attending Provider Instructions: Please take all medications as instructed on discharge list below. It is important to consistently take the Keppra (seizure medication) twice daily. Please avoid ladders, high areas where you can fall, and please avoid bathing or swimming for at least 6 months or until cleared by your neurologist (showers are fine). No driving for at least 6 months. You have been prescribed baby aspirin to take once daily as a result of the small PFO found in your heart. This is for stroke prevention moving forward. 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 These are benign (not cancerous) and there is no further workup needed. You were found to have a possible right breast mass on CT scan while admitted. Therefore, you will undergo a diagnostic mammogram later this afternoon after discharge from the hospital to investigate this further It was a pleasure taking care of you! Please call if you have any questions or problems. You can reach a [facility] hospitalist on duty at [facility] 24 hours a day by calling [phone]. Take care of yourself. Yumiko Gaona, DO [facility] P[facility] Studies at Discharge: Yes Stand-Alone Forms: My [facility] Medications and DC Order Prescriptions: New aspirin 81 mg Tablet,Delayed Release (Dr/Ec) 81 mg PO QAM Qty: 90 0RF levetiracetam [Keppra] 250 mg Tablet 750 mg PO BID Qty: 60 0RF Discharge Orders: Discharge Order (Routine); Ordered 05/30/22 Ordered By: Yumiko Gaona Admission Data Admit Date/Time: 05/23/22 11:49 Attending Provider: Yumiko Gaona Admit Provider: Anton Rea Primary Care Provider: PCP,NO Other Providers: Valentino Davis ; Gina Wen ; Nguyen Caceres ; Darrick Markham ; Breonna Manzano ; Ayaan White I. ; Omar Wagner II ; [place] ; Raciel Pisano ; Jaylen Gallardo
[2022-05-31 00:37] LABS: CA 27.29 <10 U/mL (<38); CA15-3 Breast Antigen 8 U/mL (<32)
[2022-05-31 11:06] LABS: Quantiferon Mitogen-NIL >10.00 IU/mL; Quantiferon NIL 0.21 IU/mL; Quantiferon TB Gold Plus NEGATIVE (NEGATIVE); Quantiferon TB1-NIL <0.00 IU/mL; Quantiferon TB2-NIL <0.00 IU/mL
[2022-06-03 00:16] LABS: Factor 5 Mutation NEGATIVE
[2022-06-03 19:01] LABS: Bartonella henselae IgG Negative; Bartonella henselae IgM Ab Negative; Bartonella quintana IgG Ab Negative; Bartonella quintana IgM Ab Negative; Brucella AB IgG 0.33; Histoplasma H Band Ab Negative (Negative); Histoplasma M Band Ab Negative (Negative)
== END 2022-05-30 14:06 | disposition home or self-care (01) | DRG 101 ==
LOC: ED 14:10 → 2S 14:10 → SUATTDRO 17:06 → 2S 22:02 → 4W 05-28 10:11 → 3W 05-29 00:50

== ENCOUNTER 2022-12-12 08:07 | Inpatient (IN) ==
--- NOTE | 2022-12-12 08:15 | Emergency Department Note ---
Impression & Plan Seizure disorder, Chest wall pain, Change in mental status, Generalized weakness ED Provider Note NAME: LIS VÁZQUEZ AGE: 37 SEX: F ARRIVES VIA: Ambulance INFORMANT: Patient ED PROVIDER(S): Emile Trotter MD CHIEF COMPLAINT: chest pain, seizure PLAN: Disposition: Admit MEDICAL DECISION MAKING: The patient is a 37-year-old Zoroastrianism woman with a past medical history of seizure disorder, on Keppra, history of PFO with recent admission to this facility for recurrence of seizures who presents to the emergency department today via EMS and accompanied by her mother for evaluation were her mother was concerned for what was as chest pain which she felt the patient indicated to her this morning. This occurs in the setting of the report that the patient had a seizure episode on Saturday and since then has been having generalized weakness with increased wea kness of her left arm and leg and complaints of pain in her left arm and leg that they report has been chronic. The patient's mother reports that she typically has prolonged symptoms following a seizure and so she feels the way she is acting in terms of her decrease in speech and weakness and pain is not abnormal for her. She reports that she has had fluctuating degree of symptoms related to this and reports that Saturday she was able to pull her own glass of water and make sure to hydrate throughout the day that she did not do this on Saturday following her seizure and does not feel like she would be able to do this today. She reports that she felt her last night because she did not have the strength to feed herself. The patient does not speak Malaysian per se but her mother reports that she understands Malaysian without difficulty and otherwise they speak Afghan at home. On arrival the patient is in no acute distress, with temperature 37.6 and vital signs otherwise stable. She appears clinically dry. Her eyes are open and follows commands to close her eyes and lift her extremities which Exhibit 3/5 strength with subtle increased weakness of the left arm. Reflexes within normal limits. There is no clonus. She did not exhibit any speech upon my visit however per RN the patient was whispering to her mother. Chest examination reveals reproducible anterior CW tenderness. No crepitus. EKG without overt acute ischemia. CXR negative for acute cardiopulmonary process. WBC 4K nonspecific. H/H and platelets within normal limits. Chemistry without metabolic acidosis. Electrolytes and LFTs unremarkable. CPK within normal limits. High-sensitivity troponin is undetectable. Lipase is not elevated. hCG negative. UA without evidence of infection. Keppra level sent and pending. COVID-19 RNA, DARIO test was negative. CT of the head and CTA of the head and neck as well as CT venogram were performed and were negative for acute abnormalities. Patient has been treated with IV fluid hydration as well as one- time dose of Ativan and IV APAP with no significant change. Given the patient's persistent symptoms in the setting of her history of seizures the patient's mother agrees with plan for admission. Case was discussed with Dr. Xiong, [facility] hospitalist, who will evaluate the patient for admission. This patient was managed with the assistance of resident, Dr. Francis. I discussed the case with the resident, examined the patient, and confirm the findings and plan as documented in this note. Triage Nursing notes reviewed and agree them. Prior/outside medical records reviewed Vital Signs: reviewed Differential diagnosis: Epilepsy, infection, hypoglycemia, electrolyte abnormalities, cardiac sources, intracerebral event, trauma, toxicologic, neurologic, syncope, as well as other pathologies. ER treatment provided: See below. Diagnostics interpreted by me: ECG: Normal sinus rhythm, 67 bpm, no ectopy, no overt ST elevation or depression, QTc 424, QRS 98 Cardiac Monitoring: An order for continuous cardiac monitoring was placed and demonstrated Normal sinus rhythm, 67 bpm, no ectopy. Laboratory studies: See below Imaging studies: See below Consultation(s): Case was discussed with Dr. Xiong, [facility] hospitalist, who will evaluate the patient for admission. HPI: The patient is a 37-year-old Zoroastrianism woman with a past medical history of seizure disorder, on Keppra, history of PFO with recent admission to this facility for recurrence of seizures who presents to the emergency department today via EMS and accompanied by her mother for evaluation were her mother was concerned for what was as chest pain which she felt the patient indicated to her this morning. This occurs in the setting of the report that the patient had a seizure episode on Saturday and since then has been having generalized weakness with increased weakness of her left arm and leg and complaints of pain in her left arm and leg that they report has been chronic. The patient's mother reports that she typically has prolonged symptoms following a seizure and so she feels the way she is acting in terms of her decrease in speech and weakness and pain is not abnormal for her. She reports that she has had fluctuating degree of symptoms related to this and reports that Saturday she was able to pull her own glass of water and make sure to hydrate throughout the day that she did not do this on Saturday following her seizure and does not feel like she would be able to do this today. She reports that she felt her last night because she did not have the strength to feed herself. The patient does not speak Malaysian per se but her mother reports that she understands Malaysian without difficulty and oth erwise they speak Afghan at home. ROS: See above HPI for pertinent positives & negatives. A total of 10 systems reviewed and were otherwise negative. VITALS:See Below PHYSICAL EXAMINATION: GENERAL: Awake, alert, fatigued-appearing, tearful at times, in no distress HENT: Normocephalic, atraumatic. Oropharynx with dry mucous membranes and otherwise unremarkable. EYES: Normal conjunctiva. Sclera non-icteric. NECK: Supple. No nuchal rigidity. FROM. No JVD. RESPIRATORY: Clear to auscultation. CARDIAC: Regular rate, normal rhythm. Extremities warm and well perfused. Pulses equal. ABDOMEN: Soft, non-distended. No tenderness to palpation. No rebound or guarding. No masses. RECTAL: Deferred. MUSCULOSKELETAL: Chest examination reveals reproducible anterior CW tenderness. No crepitus. The back is symmetrical on inspection without obvious abnormality. There is no CVA tenderness to palpation. No joint edema. LOWER EXTREMITIES: Calves are equal size bilaterally and non-tender. No edema. No discoloration. NEURO: Eyes are open and follows commands to close her eyes and lift her extremities which Exhibit 3/5 strength with subtle increased weakness of the left arm. Reflexes within normal limits. There is no clonus. She did not exhibit any speech upon my visit however per RN the patient was whispering to her mother. SKIN: No rash or jaundice noted. Emile Trotter MD Past Med/Surg History Medical History Breast mass, right Left-sided weakness PFO (patent foramen ovale) Seizure disorder Surgical History No history of previous surgery Family History Father Diabetes Denies family history of Ovarian cancer Prostate cancer Myocardial infarction Breast cancer Colorectal cancer Social History Smoking Status: Never smoker Second Hand Exposure: No; Hx Alcohol Use: No Hx Substance Use: No Preferred Language: Malaysian Communication Ability: Effective Adoption Counselor Required: No Beliefs That Will Affect Care: Protestant Current Living Situation: Family Current Living Situation Comment: mother and sister are primary caregivers Other Information That Helps Us Care for You: No Feels Safe at Home: Yes Safety Concerns: Feels Safe At This Time Assistive Devices: Glasses Assistive Devices Comment: not currently with pt Allergies Allergies Allergy/AdvReac Type Severity Reaction Status Date / Time No Known Allergies Allergy Unverified 06/08/22 09:09 Home Meds Previous Rx's Medication Instructions Recorded aspirin 81 mg tablet,delayed 81 mg PO QAM #90 tabs 05/30/22 release doxycycline monohydrate 100 mg 100 mg PO BID #42 caps 05/30/22 capsule naproxen 500 mg tablet 500 mg PO Q12H PRN severe pain #30 05/30/22 tabs levetiracetam 250 mg tablet 750 mg PO BID #60 tabs 07/17/22 (Keppra) Results & Data (ED) Vital Signs Vital Signs - 24 hr 12/12/22 08:16 12/12/22 08:19 12/12/22 08:26 Temperature 37.6 C H 37.6 C H Temperature Source Oral Oral Pulse Rate 66 63 Pulse Rate [Apical] 63 Pulse Rate from SpO2 Sensor Respiratory Rate 18 18 Respiratory Depth Normal Normal Blood Pressure 107/69 Blood Pressure [Right Arm] 107/69 Blood Pressure Mean 81 Blood Pressure Mean [Right Arm] 81 Pulse Oximetry 97 97 Oxygen Delivery Method Room Air Room Air Sepsis Recent Fever Within 48 Hours No Sepsis New/Unexplained Change in Mental Status Yes Sepsis Action Taken by Nursing No Action Required 12/12/22 08:19 12/12/22 08:38 12/12/22 08:30 Temperature Temperature Source Pulse Rate 67 66 Pulse Rate [Apical] Pulse Rate from SpO2 Sensor 66 Respiratory Rate 18 14 Respiratory Depth Blood Pressure 108/73 Blood Pressure [Right Arm] Blood Pressure Mean 84 Blood Pressure Mean [Right Arm] Pulse Oximetry 97 97 97 Oxygen Delivery Method Room Air Room Air Sepsis Recent Fever Within 48 Hours Sepsis New/Unexplained Change in Mental Status Sepsis Action Taken by Nursing 12/12/22 09:00 12/12/22 09:30 12/12/22 10:00 Temperature Temperature Source Pulse Rate 63 66 66 Pulse Rate [Apical] Pulse Rate from SpO2 Sensor 64 66 Respiratory Rate 18 16 14 Respiratory Depth Blood Pressure 113/72 97/65 L 97/65 L Blood Pressure [Right Arm] Blood Pressure Mean 85 75 75 Blood Pressure Mean [Right Arm] Pulse Oximetry 98 98 Oxygen Delivery Method Sepsis Recent Fever Within 48 Hours Sepsis New/Unexplained Change in Mental Status Sepsis Action Taken by Nursing 12/12/22 10:30 12/12/22 11:00 12/12/22 11:30 Temperature Temperature Source Pulse Rate 61 62 66 Pulse Rate [Apical] Pulse Rate from SpO2 Sensor 62 62 63 Respiratory Rate 14 13 15 Respiratory Depth Blood Pressure 103/71 99/60 L 101/67 Blood Pressure [Right Arm] Blood Pressure Mean 81 73 78 Blood Pressure Mean [Right Arm] Pulse Oximetry 98 98 97 Oxygen Delivery Method Sepsis Recent Fever Within 48 Hours Sepsis New/Unexplained Change in Mental Status Sepsis Action Taken by Nursing 12/12/22 12:00 Temperature Temperature Source Pulse Rate 71 Pulse Rate [Apical] Pulse Rate from SpO2 Sensor 70 Respiratory Rate 17 Respiratory Depth Blood Pressure 96/70 L Blood Pressure [Right Arm] Blood Pressure Mean 78 Blood Pressure Mean [Right Arm] Pulse Oximetry 97 Oxygen Delivery Method Sepsis Recent Fever Within 48 Hours Sepsis New/Unexplained Change in Mental Status Sepsis Action Taken by Nursing Laboratory Data Attestation: I reviewed the patient's lab results. 12/12/22 08:20 12/12/22 08:20 Lab Results 12/12/22 12/12/22 12/12/22 Range/Units 08:20 08:20 08:20 WBC 4.07 L (4.8-10.8) K/ul RBC 4.34 (4.20-5.40) M/uL Hgb 12.9 (12.0-16.0) g/dl Hct 38.5 (37.0-47.0) % MCV 88.7 (80.0-100.0) fL MCH 29.7 (25.0-34.0) pg MCHC 33.5 (32.0-36.0) g/dL RDW Std Deviation 42.0 (36.4-46.3) fL RDW Coeff of Belia 12.9 (11.5-14.5) % Plt Count 245 (130-400) K/uL MPV 10.0 (9.4-12.4) fL Immature Gran % (Auto) 0.2 % Neut % (Auto) 60.5 % Lymph % (Auto) 30.7 % [place] % (Auto) 5.4 % Eos % (Auto) 2.2 % Baso % (Auto) 1.0 % Neut # (Auto) 2.46 (1.40-6.50) K/uL Lymph # (Auto) 1.25 (1.2-3.4) K/uL [place] # (Auto) 0.22 (0.11-0.59) K/uL Eos # (Auto) 0.09 (0-0.50) K/uL Baso # (Auto) 0.04 (0-0.2) K/uL Immature Gran # (Auto) 0.01 (0.01-0.20) K/uL Sodium 141 (136-145) mmol/L Potassium 4.0 (3.5-5.1) mmol/L Chloride 107 (98-107) mmol/L Carbon Dioxide 30 (21-32) mmol/L Anion Gap 4 (3-11) BUN 7 (6-23) mg/dl Creatinine 0.60 (0.6-1.2) mg/dl Est Cr Clr Drug Dosing Not Reportable Est GFR ( Amer) 136.9 ml/min Est GFR (Non-Af Amer) 118.1 ml/min BUN/Creatinine Ratio 11.7 (10-20) Glucose 92 (70-99(Fasting)) mg/dl Calcium 9.7 (8.5-10.1) mg/dl Phosphorus 3.4 (2.5-4.9) mg/dl Magnesium 1.9 (1.7-2.4) mg/dl Total Bilirubin 0.5 (0.2-1.0) mg/dl AST 21 (13-39) U/L ALT 24 (7-52) U/L Alkaline Phosphatase 63 (34-104) U/L Total Creatine Kinase 46 (26-192) U/L Troponin I High Sens < 2.3 (0-14) pg/ml Total Protein 7.5 (6.0-8.3) gm/dl Albumin 4.4 (3.4-5.0) gm/dl Globulin 3.1 (2.5-4.0) gm/dl Albumin/Globulin Ratio 1.4 (0.9-2) Lipase 22 (11-82) U/L HCG, Qual Negative (Negative) Urine Color Urine Appearance (Clear) Urine pH (4.5-7.5) Ur Specific [place] (1.000-1.030) Urine Protein (Negative) Urine Glucose (UA) (Negative) Urine Ketones (Negative) Urine Blood (Negative) Urine Nitrite (Negative) Urine Bilirubin (Negative) Urine Urobilinogen (Negative) Ur Leukocyte Esterase (Negative) SARS-CoV-2, RNA, NAAT (NEGATIVE) 12/12/22 12/12/22 Range/Units 09:00 09:16 WBC (4.8-10.8) K/ul RBC (4.20-5.40) M/uL Hgb (12.0-16.0) g/dl Hct (37.0-47.0) % MCV (80.0-100.0) fL MCH (25.0-34.0) pg MCHC (32.0-36.0) g/dL RDW Std Deviation (36.4-46.3) fL RDW Coeff of Belia (11.5-14.5) % Plt Count (130-400) K/uL MPV (9.4-12.4) fL Immature Gran % (Auto) % Neut % (Auto) % Lymph % (Auto) % [place] % (Auto) % Eos % (Auto) % Baso % (Auto) % Neut # (Auto) (1.40-6.50) K/uL Lymph # (Auto) (1.2-3.4) K/uL [place] # (Auto) (0.11-0.59) K/uL Eos # (Auto) (0-0.50) K/uL Baso # (Auto) (0-0.2) K/uL Immature Gran # (Auto) (0.01-0.20) K/uL Sodium (136-145) mmol/L Potassium (3.5-5.1) mmol/L Chloride (98-107) mmol/L Carbon Dioxide (21-32) mmol/L Anion Gap (3-11) BUN (6-23) mg/dl Creatinine (0.6-1.2) mg/dl Est Cr Clr Drug Dosing Est GFR ( Amer) ml/min Est GFR (Non-Af Amer) ml/min BUN/Creatinine Ratio (10-20) Glucose (70-99(Fasting)) mg/dl Calcium (8.5-10.1) mg/dl Phosphorus (2.5-4.9) mg/dl Magnesium (1.7-2.4) mg/dl Total Bilirubin (0.2-1.0) mg/dl AST (13-39) U/L ALT (7-52) U/L Alkaline Phosphatase (34-104) U/L Total Creatine Kinase (26-192) U/L Troponin I High Sens (0-14) pg/ml Total Protein (6.0-8.3) gm/dl Albumin (3.4-5.0) gm/dl Globulin (2.5-4.0) gm/dl Albumin/Globulin Ratio (0.9-2) Lipase (11-82) U/L HCG, Qual (Negative) Urine Color Yellow Urine Appearance Clear (Clear) Urine pH 7.5 (4.5-7.5) Ur Specific [place] 1.006 (1.000-1.030) Urine Protein Negative (Negative) Urine Glucose (UA) Negative (Negative) Urine Ketones Negative (Negative) Urine Blood Negative (Negative) Urine Nitrite Negative (Negative) Urine Bilirubin Negative (Negative) Urine Urobilinogen Negative (Negative) Ur Leukocyte Esterase Negative (Negative) SARS-CoV-2, RNA, NAAT NEGATIVE (NEGATIVE) Administered Medications Discontinued Medications Sodium Chloride (Nss 1000ml) 1,000 mls @ 999 mls/hr IV .Q1H1M ONE Stop: 12/12/22 09:38 Last Infusion: 12/12/22 10:26 Dose: 0 mls/hr Documented By: Admin: 12/12/22 09:25 Dose: 999 mls/hr Documented By: JOSAFAT Acetaminophen (Ofirmev) 1,000 mg in 100 mls @ 400 mls/hr IV NOW ONE Stop: 12/12/22 09:16 Last Infusion: 12/12/22 10:06 Dose: 0 mls/hr Documented By: Admin: 12/12/22 09:27 Dose: 400 mls/hr Documented By: JOSAFAT Ioversol (Optiray 320 500ml) 104 ml IV ONCE ONE Stop: 12/12/22 10:00 Last Admin: 12/12/22 10:00 Dose: 104 ml Documented By: ELIS Lorazepam (Lorazepam 2 Mg/1 Ml Vial) 1 mg IV NOW ONE Stop: 12/12/22 08:57 Last Admin: 12/12/22 09:25 Dose: 1 mg Documented By: JOSAFAT Imaging Data Radiologist's Impression: Chest X-Ray 12/12/22 08:38 XR chest 1V portable CLINICAL HISTORY: Chest pain, nonspecific TECHNIQUE: Single frontal radiograph of the chest was obtained. Comparison: Comparison is made to chest radiograph 05/22/2022 FINDINGS: No lines and tubes are seen. Calcified aortic knob is seen. The lungs are clear. No evidence of pleural effusion or pneumothorax. IMPRESSION: No acute chest disease. ACT 112: Negative or not required by law. Electronically signed by: Arnva Chandler M.D. 12/12/2022 9:[address] 12/12/22 09:00 CT head/brain wo con CLINICAL HISTORY: 37 years-old Female with weakness,recent seizure. Acute weakness with seizure like activity TECHNIQUE: Multiple axial CT images of the head were obtained without contrast. A dose lowering technique was utilized adhering to the principles of ALARA. COMPARISON: CTA head of same day FINDINGS: No acute intracranial hemorrhage, midline shift, intracranial mass, hydrocephalus, territorial ischemia or abnormal extra-axial collection. The calvarium is intact. The paranasal sinuses, mastoid air cells, and middle ear cavities are clear. IMPRESSION: No acute intracranial abnormality. ACT 112: Negative or not required by law. The above report was generated using voice recognition software. It may contain grammatical, syntax or spelling errors. Electronically signed by: Graeme Ellington M.D. 12/12/2022 10:[address] 12/12/22 09:00 CT head venogram w con CLINICAL HISTORY: weakness, recent seizure COMPARISON STUDY: CT of the head, CTA of the head and MRI of the brain May 22, 2022. TECHNIQUE: CT venography was performed following intravenous administration of 104 cc of Optiray 320 IV. Sagittal and coronal reconstructions were viewed. Automated exposure control was utilized for the study. A dose lowering techn ique was utilized adhering to the principles of ALARA. FINDINGS: Please note that the head CT will be reported separately. No acute hemorrhage is noted exam. The ventricular system is normal. Basal cisterns are patent. Brain volume is normal. There are no extra axial collections. The superior sagittal sinus is patent. Multiple arachnoid granulations along the superior sagittal sinus are noted. These were present on prior CTA. There is no dural sinus thrombosis. The bilateral transverse and sigmoid sinuses are patent. The proximal internal jugular veins are patent. The straight sinus is patent. No dural venous thrombus is identified on this exam. IMPRESSION: No acute dural sinus thrombus identified. ACT 112: Negative or not required by law. Electronically signed by: Harrison Novak M.D. 12/12/2022 10:24 AM Head CTA 12/12/22 09:29 CT angio head w con CLINICAL HISTORY: Seizure, Left sided weakness, aphasia, h/o PFO TECHNIQUE: CT angiography of the head was performed following intravenous administration of iodinated contrast. Coronal and sagittal MIPS were obtained from the axial data set and were submitted for review. Automated dose lowering techniques and/or adjustment according to patient size were utilized for this examination. All measurements were calculated based on NASCET criteria. Comparison: Comparison is made to CT head 05/24/2022 FINDINGS: CTA Head: The anterior and posterior cerebral circulations are patent. origin of the right posterior cerebral artery is seen. IMPRESSION: No occlusion, hemodynamically significant stenosis, aneurysm, dissection, or arteriovenous malformation in the major intracranial arteries. Assessment of stenosis of the internal carotid arteries is based on NASCET criteria. ACT 112: Negative or not required by law. Electronically signed by: Arnav Chandler M.D. 12/12/2022 10:15 AM Neck CTA 12/12/22 09:29 CT ANGIOGRAPHY OF THE NECK WITH CONTRAST CLINICAL HISTORY: Seizure, Left sided weakness, aphasia, h/o PFO COMPARISON STUDY: CTA of the neck of May 22, 2022. Technique: CT angiography of the carotid and vertebral arteries was obtained using Optiray and 3D reconstruction on an independent workstation. NASCET criteria was utilized. Automated exposure control was utilized for the study. A dose lowering technique was utilized adhering to the principles of ALARA. CT DOSE: 1718.72 mGy.cm Findings: A 3 mm right lung apex nodule remains unchanged. No cervical lymphadenopathy is present. No acute cervical spine fracture. The bilateral common carotid, cervical internal carotid and vertebral arteries are patent. There is no stenosis or dissection within these vessels. No aneurysm within the neck is noted. IMPRESSION: Unremarkable CTA of the neck. ACT 112: Negative or not required by law. Electronically signed by: Harrison Novak M.D. 12/12/2022 10:18 AM Discharge Plan Visit Data Chief Complaint: Seizure Stated Complaint: CHEST PAIN, POSSIBLE SEIZURE ED Provider: Emile Trotter Discharge Problem: Seizure disorder, Chest wall pain, Change in mental status, Generalized weakness Patient Disposition: Admitted As Inpatient Discharge Instructions Interventions: ED Discharge Assessment Last Done: 12/12/22 13:46
[2022-12-12] MEDS ORDERED: SODIUM CHLORIDE 0.9% 1000ML 1,000 ML IV ONE (08:38)
[2022-12-12] MEDS ORDERED: LORazepam 2 MG/1 ML VIAL IV ONE (08:56)
[2022-12-12 08:58] LABS: Basophils # (auto) 0.04 K/uL (0-0.2); Eosinophils # (auto) 0.09 K/uL (0-0.50); Eosinophils % (auto) 2.2 %; Hematocrit (blood only) 38.5 % (37.0-47.0); Hemoglobin 12.9 g/dl (12.0-16.0); Immature Granulocytes # (auto) 0.01 K/uL (0.01-0.20); Immature Granulocytes % (auto) 0.2 %; Lymphocytes # (auto) 1.25 K/uL (1.2-3.4); Lymphocytes % (auto) 30.7 %; Mean Corpuscular Hemoglobin 29.7 pg (25.0-34.0); Mean Corpuscular Hgb Conc 33.5 g/dL (32.0-36.0); Mean Corpuscular Volume 88.7 fL (80.0-100.0); Monocytes # (auto) 0.22 K/uL (0.11-0.59); Monocytes % (auto) 5.4 %; Neutrophils # (auto) 2.46 K/uL (1.40-6.50); Neutrophils % (auto) 60.5 %; Platelet Count 245 K/uL (130-400); RDW Coefficient of Variation 12.9 % (11.5-14.5); Red Blood Count 4.34 M/uL (4.20-5.40); White Blood Count 4.07 K/ul (4.8-10.8)
[2022-12-12] MEDS ORDERED: ACETAMINOPHEN 1,000 MG/100 ML VIAL IV ONE (09:02)
[2022-12-12 09:03] LABS: Alanine Aminotransferase 24 U/L (7-52); Albumin Globulin Ratio 1.4 (0.9-2); Albumin Level 4.4 gm/dl (3.4-5.0); Alkaline Phosphatase 63 U/L (34-104); Anion Gap 4 (3-11); Aspartate Aminotransferase 21 U/L (13-39); BUN Creatinine Ratio 11.7 (10-20); Bilirubin,Total 0.5 mg/dl (0.2-1.0); Blood Urea Nitrogen 7 mg/dl (6-23); Calcium 9.7 mg/dl (8.5-10.1); Carbon Dioxide 30 mmol/L (21-32); Chloride 107 mmol/L (98-107); Creatine Kinase 46 U/L (26-192); Est GFR (African American) 136.9 ml/min; Est GFR (Non-African American) 118.1 ml/min; Globulin 3.1 gm/dl (2.5-4.0); Glucose 92 mg/dl (70-99(Fasting)); Lipase 22 U/L (11-82); Magnesium 1.9 mg/dl (1.7-2.4); Phosphorus 3.4 mg/dl (2.5-4.9); Sodium 141 mmol/L (136-145); Total Protein 7.5 gm/dl (6.0-8.3)
--- NOTE | 2022-12-12 09:08 | XRay Report ---
XR chest 1V portable CLINICAL HISTORY: Chest pain, nonspecific TECHNIQUE: Single frontal radiograph of the chest was obtained. Comparison: Comparison is made to chest radiograph 05/22/2022 FINDINGS: No lines and tubes are seen. Calcified aortic knob is seen. The lungs are clear. No evidence of pleur al effusion or pneumothorax. IMPRESSION: No acute chest disease. ACT 112: Negative or not required by law. Electronically signed by: Arnav Chandler M.D. 12/12/2022 9:06 AM
[2022-12-12 09:09] LABS: Troponin I High Sensitivity < 2.3 pg/ml (0-14)
[2022-12-12 09:25] LABS: Pregnancy Test, Serum Negative (Negative)
[2022-12-12 09:29] LABS: Appearance Urine Clear (Clear); Bilirubin Urine Negative (Negative); Blood Urine Negative (Negative); Color Urine Yellow; Glucose Urine UA Negative (Negative); Ketones Urine Negative (Negative); Leukocyte Esterase Urine Negative (Negative); Nitrite Urine Negative (Negative); Protein Urine Negative (Negative); Specific Gravity Urine 1.006 (1.000-1.030); Urobilinogen Urine Negative (Negative); pH Urine 7.5 (4.5-7.5)
[2022-12-12] MEDS ORDERED: OPTIRAY 320 500ml IV ONE (09:59)
--- NOTE | 2022-12-12 10:17 | CT Scan Report ---
CT angio head w con CLINICAL HISTORY: Seizure, Left sided weakness, aphasia, h/o PFO TECHNIQUE: CT angiography of the head was performed following intravenous administration of iodinated contrast. Coronal and sagittal MIPS were obtained from the axial data set and were submitted for rev iew. Automated dose lowering techniques and/or adjustment according to patient size were utilized fo r this examination. All measurements were calculated based on NASCET criteria. Comparison: Comparison is made to CT head 05/24/2022 FINDINGS: CTA Head: The anterior and posterior cerebral circulations are patent. origin of the right pos terior cerebral artery is seen. IMPRESSION: No occlusion, hemodynamically significant stenosis, aneurysm, dissection, or arteriovenous malformati on in the major intracranial arteries. Assessment of stenosis of the internal carotid arteries is based on NASCET criteria. ACT 112: Negative or not required by law. Electronically signed by: Arnav Chandler M.D. 12/12/2022 10:15 AM
--- NOTE | 2022-12-12 10:19 | CT Scan Report ---
CT ANGIOGRAPHY OF THE NECK WITH CONTRAST CLINICAL HISTORY: Seizure, Left sided weakness, aphasia, h/o PFO COMPARISON STUDY: CTA of the neck of May 22, 2022. Technique: CT angiography of the carotid and vertebral arteries was obtained using Optiray and 3D rec onstruction on an independent workstation. NASCET criteria was utilized. Automated exposure control was utilized for the study. A dose lowering technique was utilized adhering to the principles of ALA RA. CT DOSE: 1718.72 mGy.cm Findings: A 3 mm right lung apex nodule remains unchanged. No cervical lymphadenopathy is present. No acute cervical spine fracture. The bilateral common carotid, cervical internal carotid and vertebral arteries are patent. There is no stenosis or dissection within these vessels. No aneurysm within the neck is noted. IMPRESSION: Unremarkable CTA of the neck. ACT 112: Negative or not required by law. Electronically signed by: Harrison Novak M.D. 12/12/2022 10:18 AM
--- NOTE | 2022-12-12 10:20 | CT Scan Report ---
CT head/brain wo con CLINICAL HISTORY: 37 years-old Female with weakness,recent seizure. Acute weakness with seizure like activity TECHNIQUE: Multiple axial CT images of the head were obtained without contrast. A dose lowering tech nique was utilized adhering to the principles of ALARA. COMPARISON: CTA head of same day FINDINGS: No acute intracranial hemorrhage, midline shift, intracranial mass, hydrocephalus, territorial ischem ia or abnormal extra-axial collection. The calvarium is intact. The paranasal sinuses, mastoid air cells, and middle ear cavities are clear . IMPRESSION: No acute intracranial abnormality. ACT 112: Negative or not required by law. The above report was generated using voice recognition software. It may contain grammatical, syntax o r spelling errors. Electronically signed by: Graeme Ellington M.D. 12/12/2022 10:19 AM
--- NOTE | 2022-12-12 10:25 | CT Scan Report ---
CT head venogram w con CLINICAL HISTORY: weakness, recent seizure COMPARISON STUDY: CT of the head, CTA of the head and MRI of the brain May 22, 2022. TECHNIQUE: CT venography was performed following intravenous administration of 104 cc of Optiray 320 IV. Sagittal and coronal reconstructions were viewed. Automated exposure control was utilized for the study. A dose lowering technique was utilized adhering to the principles of ALARA. FINDINGS: Please note that the head CT will be reported separately. No acute hemorrhage is noted exam . The ventricular system is normal. Basal cisterns are patent. Brain volume is normal. There are no e xtra axial collections. The superior sagittal sinus is patent. Multiple arachnoid granulations along the superior sagittal sinus are noted. These were present on prior CTA. There is no dural sinus throm bosis. The bilateral transverse and sigmoid sinuses are patent. The proximal internal jugular veins a re patent. The straight sinus is patent. No dural venous thrombus is identified on this exam. IMPRESSION: No acute dural sinus thrombus identified. ACT 112: Negative or not required by law. Electronically signed by: Harrison Novak M.D. 12/12/2022 10:24 AM
--- NOTE | 2022-12-12 12:23 | History & Physical Report ---
Date of Service December 12, 2022 Assessment & Plan (1) Left-sided weakness: Plan: Left Sided Numbness/Weakness, ~4 hours of reduced conciousness.? Seizure and postictal state versus TIA/CVA Began at around 4 AM, patient did have reproducible chest pain which has persi sted with no EKG changes/negative troponin Significant worsening of left-sided arm and leg weakness, which has not improved and has persisted on exam. Does improve slightly with encouragement, but asymmetrically weak compared to the right Patient mother reports that she could not speak or get the right words out this morning DDx includes seizure with postictal state versus CVA in the setting of known PFO. Patient did have a seizure last Saturday, her mother reports that her current symptom severity and initial presentation is much different than with her prior seizure/postictal states Has been taking Keppra, has not missed any doses. Did take a dose this morning. Has not been taking aspirin, did take a aspirin this morning which she thinks may have been a full dose before coming in No leukocytosis Hemoglobin normal Creatinine is with normal baseline, 0.60 on admission Sodium/potassium normal No transaminitis CK 46 High-sensitivity troponin undetectable hCG negative Lipase normal UA uninfected appearing Keppra level pending COVID-negative CTAhead/neck: Unremarkable CTA of the neck. No occlusion, hemodynamically significant stenosis, aneurysm, dissection, or arteriovenous malformation in the major intracranial arteries. CTvenogram: No acute dural sinus thrombus identified. CThead: No acute intracranial abnormality. CXR: No acute chest disease. EKG: Normal sinus rhythm. No change compared to 2021. QTc 424. No ST segment changes or T wave inversions, no indication of territorial ischemia MRI pending Echo pending tPA not indicated for strokelike symptoms based on duration Patent foramen ovale Continue aspirin 81 mg daily for prophylaxis Right breast mass Last seen 2021. With T10-T12 lesions on CT subsequently with follow-up suspicious for benign hemangiomas Followup Diagnostic mammogram 05/30/2022: There is no mammographic evidence of malignancy. No breast masses are seen. A 5 year screening mammogram is rec ommended.(05/30/2027) These results and recommendations were discussed with the patient and her mother at the time of the exam. Seizure disorder, fluctuating left-sided weakness Last seen for seizures 2021 which recurred in the setting of stopping Keppra Was discharged 2021 on Keppra 750 mg twice daily, has been compliant with this Keppra level pending Lyme disease Found in the setting of left-sided weakness at prior admit, was treated with Rocephin/Doxy Diet: Regular Disposition: Medical telemetry, seizure precautions DVT prophylaxis: Lovenox CODE STATUS discussed at length with patient and her mother. Patient reports that in the catastrophic circumstance that her heart/breathing were to stop completely she would not want CPR or a breathing tube/resuscitation. Patient recognizes that she is young, but if she were to become so ill that she were to be a cardiac or respiratory arrest she would not want further resuscitation at that time. Her mother is present for this conversation and agrees "no we would not want things like that ". (2) Seizure disorder: (3) PFO (patent foramen ovale): (4) Breast mass, right: History of Present Illness Primary Care Provider: Esdras Godfrey DO Albina Oliver is a 37-year-old [facility] female with a history of seizure disorder/epilepsy, left-sided weakness, and right-sided breast mass with concern for T10-T12 vertebral body involvement last seen and discharged 05/30/2022 after an admission for seizures with subsequent control with Keppra and follow-up of mass/spine disease suspicious for benign hemangiomas but pending diagnostic mammo-/ultrasound guided biopsy as outpatient who read presents for weakness Prior history of seizure. Patient this morning indicated some chest pain and had a seizure episode 3 days ago with subsequent weakness, and increased weakness from baseline of her left arm and leg. Does continue to have chronic left arm and left leg pain. Patient has had prolonged symptoms following seizures in the past, but since then fluctuating with significant weakness and inability to feed herself which she does somewhat unusual in severity. She is seen the bedside with her mother present. Patient does follow commands appropriately, offers little spontaneous speech but understands most Martiniquais. Lashay coello is seen with her mother at bedside who is fluent in both Martiniquais and Egyptian. Per patient and her mother she has felt more weak since having a seizure 3 days ago. She has been taking her Keppra as directed twice daily with no missing doses. Does not take aspirin norm her mother reports that she became very sleepy and did not respond for approximately 4 hours which prompted them to come into the ER for further evaluation. Her and her mother report that while she has had some residual weakness worsened on the left side around seizure episodes, her current symptoms, level of sedation, and difficulty speaking seem much different than with prior seizure/postictal state. At time of bedside assessment Albina reports that she continues to feel much more weak than normal in both her left arm and left leg. Offers some spontaneous speech in Martiniquais, is able to speak Egyptian with her mother with slight slowing with no slurring. She denies fever, chills, sweats, nausea, vomiting, shortness of breath, difficulty breathing. Does endorse pain in the center/left of her chest which is much worse with light palpation. She feels her chest pain has not improved significantly in the last 4 to 5 hours. Has not been coughing recently. Denies falls. No tobacco/alcohol use. Takes Keppra. Takes no other medications. Denies medication allergies. CODE STATUS discussed at length with patient and her mother. Patient reports that in the catastrophic circumstance that her heart/breathing were to stop completely she would not want CPR or a breathing tube/resuscitation. Patient recognizes that she is young, but if she were to become so ill that she were to be a cardiac or respiratory arrest she would not want further resuscitation at that time. Her mother is present for this conversation and agrees "no we would not want things like that ". Allergies Allergy/AdvReac Type Severity Reaction Status Date / Time No Known Allergies Allergy Unverified 06/08/22 09:09 Home Medications Medication Instructions Recorded Confirmed Type aspirin 81 mg tablet,delayed 81 mg PO QAM #90 tabs 05/30/22 06/08/22 Rx release doxycycline monohydrate 100 mg 100 mg PO BID #42 caps 05/30/22 06/08/22 Rx capsule naproxen 500 mg tablet 500 mg PO Q12H PRN severe pain #30 05/30/22 06/08/22 Rx tabs levetiracetam 250 mg tablet 750 mg PO BID #60 tabs 07/17/22 Rx (Keppra) Past Med/Surg History Medical History (Updated 12/12/22 @ 12:29 by Celestine Xiong MD) Breast mass, right Surgical History No history of previous surgery Family History (Updated 06/08/22 @ 09:12 by LISA Gleason) Father Diabetes Denies family history of Ovarian cancer Prostate cancer Myocardial infarction Breast cancer Colorectal cancer Social History (Updated 06/08/22 @ 09:13 by LISA Gleason) Smoking Status: Never smoker Second Hand Exposure: No; Hx Alcohol Use: No Hx Substance Use: No Preferred Language: Martiniquais Communication Ability: Effective Current Living Situation: Family Feels Safe at Home: Yes Assistive Devices: Wheelchair Review of Systems Review of Systems: All systems reviewed & are unremarkable except as noted in HPI & below Physical Exam Physical Exam: General: Alert and oriented to name place and year. NAD. Cooperative. HEENT: Atraumatic, normocephalic. Vision/hearing intact. Speech is intact, but patient primarily speaks Egyptian. Speaks some Martiniquais, follows commands in Martiniquais appropriately. Pulm: CTAB A&P. -wheezes, -rales, -rhonchi. Symmetrical chest rise. No increased work of breathing. No respiratory distress. Cardiac: RRR, -mrg. Radial pulses intact and symmetrical. Sternum and left parasternal border is focally tender to palpation. No crepitus Abdominal: Nontender, nondistended, soft. BS present. CRANIAL NERVES: II: Pupils equal and reactive, no relative afferent pupillary defect, no VF cuts III, IV, : EOM intact, no gaze preference or deviation, no nystagmus. V: normal sensation in V1, V2, and V3 segments bilaterally VII: no asymmetry, no nasolabial fold flattening VIII: normal hearing to speech IX, X: normal palatal elevation, no uvular deviation XI: 5/5 head turn and 5/5 shoulder shrug bilaterally XII: midline tongue protrusion Right: 4+/5, improved to 5/5 with encouragement on shoulder flexion, elbow flexion/ext ension, talent associate strength, ankle dorsiflexion/plantarflexion. Hip flexion laying in bed 4/5 on the right. Sensation soft touch intact in hand and foot on the right side. Left: 34 -/5 to elbow flexion/extension, talent associate strength, shoulder forward flexion. Does improve slightly with encouragement, asymmetrically weak compared to the right. Sensation of soft touch is intact, but qualitatively diminished compared to the right and left upper arm, forearm, left hand, left thigh, left lower extremity, and left foot. Results & Data Results & Data ([facility]) Vital Signs (Past 12 Hours) Vital Signs Temp Pulse Pulse Resp BP BP Pulse Ox 12/12/22 12:00 71 17 96/70 L 97 12/12/22 11:30 66 15 101/67 97 12/12/22 11:00 62 13 99/60 L 98 12/12/22 10:30 61 14 103/71 98 12/12/22 10:00 66 14 97/65 L 12/12/22 09:30 66 16 97/65 L 98 12/12/22 09:00 63 18 113/72 98 12/12/22 08:30 66 14 108/73 97 12/12/22 08:38 67 18 97 12/12/22 08:19 97 12/12/22 08:26 37.6 C H 63 18 107/69 97 12/12/22 08:19 37.6 C H 63 18 107/69 97 12/12/22 08:16 66 O2 Del Method 12/12/22 12:00 12/12/22 11:30 12/12/22 11:00 12/12/22 10:30 12/12/22 10:00 12/12/22 09:30 12/12/22 09:00 12/12/22 08:30 12/12/22 08:38 Room Air 12/12/22 08:19 Room Air 12/12/22 08:26 Room Air 12/12/22 08:19 Room Air 12/12/22 08:16 PG Care Time/CCT Total # of Minutes Spent Total Time Spent with Patient: Total time spent is greater than 50% in coordination of care (as documented) at patient's floor/unit and/or counseling patient: Coding Level of Care Code 46464 INT INP/OBS CARE 3/75MIN Diagnoses Left-sided weakness R53.1 Seizure disorder G40.909 PFO (patent foramen ovale) Q21.1 Breast mass, right N63.10
[2022-12-12] MEDS ORDERED: PHARMACIST DISCHARGE MED REC CONSULT PRN (14:04)
[2022-12-12] MEDS ORDERED: ACETAMINOPHEN 325 MG TAB PO PRN (14:04)
--- NOTE | 2022-12-12 15:42 | Electrocardiogram Report ---
Test Reason : Blood Pressure : / mmHG Vent. Rate : 067 BPM Atrial Rate : 067 BPM P-R Int : 172 ms QRS Dur : 098 ms QT Int : 402 ms P-R-T Axes : 039 053 048 degrees QTc Int : 424 ms Normal sinus rhythm Normal ECG When compared with ECG of 27-MAY-2022 08:57, No significant change was found Confirmed by Uriel Ledbetter ([id number]) on 12/12/2022 3:42:05 PM Referred By: Confirmed By:Uriel Ledbetter
--- NOTE | 2022-12-12 16:14 | XCELERA ---
[id number]
--- NOTE | 2022-12-12 17:15 | Magnetic Resonance Report ---
MRI OF THE BRAIN WITHOUT AND WITH IV CONTRAST CLINICAL HISTORY: Left-sided weakness, hx seizure. COMPARISON STUDY: MRI of the brain May 22, [address], CTA and CTV of the head performed ear lier today. TECHNIQUE: Utilizing a 1.5 Joslyn magnet and dedicated coil, multiplanar, multiecho imaging of the br ain was performed pre and postcontrast administration. IV administration of Gadavist contrast was un eventful. FINDINGS: There are no foci of restricted diffusion to suggest acute infarct. No acute intracranial h emorrhage, midline shift or mass effect is present. Brain volume is normal. Ventricular system is nor mal. Basal cisterns are patent. There are no extra axial collections. Flow-voids for the major intrac ranial vessels are present. There is no intracranial mass or pathologic enhancement. No parenchymal s ignal abnormality is present. There is no evidence for mesial temporal sclerosis. The appearance of t he brain is unchanged. IMPRESSION: Unremarkable MRI of the brain. ACT 112: Negative or not required by law. Electronically signed by: Harrison Novak M.D. 12/12/2022 5:14 PM
[2022-12-12] MEDS ORDERED: GADOBUTROL 65ML VIAL IV ONE (17:19)
[2022-12-12] MEDS: levETIRAcetam 250 MG TAB PO SCH (20:26)
[2022-12-13 03:15] LABS: Basophils # (auto) 0.04 K/uL (0-0.2); Basophils % (auto) 1.1 %; Eosinophils # (auto) 0.13 K/uL (0-0.50); Eosinophils % (auto) 3.6 %; Hematocrit (blood only) 34.4 % (37.0-47.0); Hemoglobin 11.5 g/dl (12.0-16.0); Lymphocytes # (auto) 1.22 K/uL (1.2-3.4); Lymphocytes % (auto) 34.2 %; Mean Corpuscular Hemoglobin 29.7 pg (25.0-34.0); Mean Corpuscular Hgb Conc 33.4 g/dL (32.0-36.0); Mean Corpuscular Volume 88.9 fL (80.0-100.0); Mean Platelet Volume 9.4 fL (9.4-12.4); Monocytes % (auto) 8.4 %; Neutrophils # (auto) 1.88 K/uL (1.40-6.50); Neutrophils % (auto) 52.7 %; Platelet Count 211 K/uL (130-400); RDW Standard Deviation 42.4 fL (36.4-46.3); Red Blood Count 3.87 M/uL (4.20-5.40); White Blood Count 3.57 K/ul (4.8-10.8)
[2022-12-13 03:28] LABS: Calcium 9.2 mg/dl (8.5-10.1); Creatinine Clr Calc Pharmacy 141.5 ml/min; Est GFR (African American) 138.4 ml/min; Est GFR (Non-African American) 119.4 ml/min; Potassium 3.6 mmol/L (3.5-5.1)
[2022-12-13 06:24] LABS: Estimated Average Glucose 103 mg/dl; Hemoglobin A1C 5.2 % (4.5-5.6)
[2022-12-13] MEDS ORDERED: ASPIRIN 81 MG ECTAB PO SCH (09:00)
[2022-12-13] MEDS: levETIRAcetam 250 MG TAB PO SCH (09:53)
[2022-12-13] MEDS ORDERED: ENOXAPARIN INJ 40 MG/0.4 ML SYR SQ SCH (12:00)
--- NOTE | 2022-12-13 12:48 | Neurology Consultation ---
Date of Consultation December 13, 2022 Assessment & Plan (1) Seizure disorder: (2) Left-sided weakness: Plan 37-year-old Religion female with a history of [facility] disorder [facility], followed by a long period of remission, but with recurrence in her early 20s. [facility] under very similar circumstances, also complicated by what was felt to be a persistent left-sided Kade's paralysis. The observed seizure episodes are somewhat atypical and have continued and spite of compliance with Keppra 750 mg twice daily. According to the patient's mother, there has been some significant stress at home which may be a contributing factor. Therefore, conversion disorder could certainly be considered. In any event, patient's left-sided weakness does seem minimal at worst and I do expect her to improve going forward. It is very reassuring that her brain MRI is again completely normal. At this point, I would recommend increasing her dosage of Keppra to 1000 mg twice daily. However, if she were to have another episode would likely recommend adding lamotrigine as an adjunctive medication with potential to cross taper from Keppra to lamotrigine going forward. I do not think another EEG would change her management at this point in time. Her current neurological examination does not seem consistent with stroke, and again, appears to have some functional quality. Also, her brain MRI is negative as above. Therefore, at this point in time, I think stroke can be adequately excluded. Again, I think her weakness is either postictal as in a Kade's paralysis, or possibly functional as in conversion disorder. Case discussed with Dr. Mota, hospitalist physician. History of Present Illness Reason for Consultation: seizure, left sided weakness Requesting Physician: Dr. Mota Attending Physician: Shawna Mota MD History of Present Illness The patient is a 37-year-old Religion female with a history of seizure disorder beginning in childhood, who presented to the emergency department yesterday for further assessment of recurrent seizures, complicated by left-sided weakness. She apparently had a seizure episode on Saturday followed by weakness of the left arm and leg, she has had similar presentations previously. It was decided to have her brought to the emergency department, however, due to the duration of her left-sided weakness. She has also been complaining of some chest discomfort and has been speaking very little. The patient's mother does describe a history of significant stressors related to what sounds like a mental illness in the patient's father with significant associated family distress which seems to have a negative impact on her daughters functioning. I had seen this patient in neurological consultation under very similar circumstances last May. She has a history of seizure disorder [facility], with apparent resolution, followed by recurrence in her early 20s. Episodes of been characterized by paralysis, speech arrest, but without fall, collapse, or generalized tonic-clonic seizure. Episodes are prolonged, lasting several hours. She had an unremarkable brain MRI although an EEG revealed right temporal sharps. 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 She was seen by oncology at that time as well. She was seen by both myself as well as Dr. Cruz during that previous hospitalization. Patient was ultimately discharged on Keppra. The patient's mother, at bedside, reports that she has been compliant with Keppra, continues with 750 mg twice daily. Yet, her daughter will experience occasional seizure-like episodes, perhaps every 1 or 2 months as described above. She has not had any additional outpatient neurology follow-up. It sounds like her PCP has been refilling the Keppra. A CT of the head completed yesterday was negative for hemorrhage or acute process. A CT venogram of the head was unremarkable, as was a CT angiogram of the head and neck. A brain MRI was completed yesterday as well, with and without IV contrast, no abnormalities identified. I reviewed the images as well as the radiologist's interpretation of these tests and agree with these findings. Per my independent review of the brain MRI, no abnormal areas of restricted diffusion to suggest acute or subacute infarct, no significant parenchymal abnormality on T2/FLAIR weighted sequences, no mesial temporal sclerosis with thin sections through the temporal lobes, no abnormal postcontrast enhancement. Allergies Allergy/AdvReac Type Severity Reaction Status Date / Time No Known Allergies Allergy Unverified 06/08/22 09:09 Home Medications Medication Instructions Recorded Confirmed Type aspirin 81 mg tablet,delayed 81 mg PO QAM #90 tabs 05/30/22 06/08/22 Rx release doxycycline monohydrate 100 mg 100 mg PO BID #42 caps 05/30/22 06/08/22 Rx capsule naproxen 500 mg tablet 500 mg PO Q12H PRN severe pain #30 05/30/22 06/08/22 Rx tabs levetiracetam 250 mg tablet 750 mg PO BID #60 tabs 07/17/22 Rx (Keppra) Patient History Medical History Breast mass, right Left-sided weakness PFO (patent foramen ovale) Seizure disorder Surgical History No history of previous surgery Family History Father Diabetes Denies family history of Ovarian cancer Prostate cancer Myocardial infarction Breast cancer Colorectal cancer Social History Smoking Status: Never smoker Second Hand Exposure: No; Hx Alcohol Use: No Hx Substance Use: No Preferred Language: Malawian Communication Ability: Effective English Adjunct Faculty Required: No Beliefs That Will Affect Care: Oriental Orthodox Current Living Situation: Family Current Living Situation Comment: mother and sister are primary caregivers Other Information That Helps Us Care for You: No Feels Safe at Home: Yes Safety Concerns: Feels Safe At This Time Assistive Devices: None Assistive Devices Comment: not currently with pt Review of Systems Constitutional: no fever and no chills Eyes: no blind spots and no diplopia Ear, Nose, Mouth, Throat: no tinnitus and no hearing loss Respiratory: no cough and no dyspnea Cardiovascular: no chest pain and no palpitations Gastrointestinal: no nausea and no vomiting Genitourinary: no dysuria Musculoskeletal: no back pain, no neck pain and no myalgia Integumentary: no rash and no lesions Neurologic: as per Subjective / HPI Psychiatric: no depression and no anxiety Hematologic / Lymphatic: no easy bleeding and no easy bruising Exam (Neuro) Constitutional: well developed and well nourished; no acute distress Eyes: normal visual orellana by confrontation, PERRL, normal accommodation and EOM intact bilaterally; no fundoscopic abnormality, no nystagmus and no papilledema Cardiovascular: Vessels: normal carotid upstroke; no carotid bruit Neurologic: Oriented to:: Person, Place and Time Memory: Short Term Intact and Remote Intact Attention: Span Intact and Concentration Intact Language: Naming Objects and Repeating Phrases Speech Fluency: Verbal Skills Limited; negative Dysarthria Speech Aphasia: negative Aphasia Fund of Knowledge: Current Events, Past History and Vocabulary Cranial Nerves: Normal II (Visual orellana full to confrontation, visual acuity normal), III, IV, (Pupils equal round reactive to light and accommodation, eye movements normal), V (Facial sensation intact), VII (There is no facial droop or weakness), VIII (Hearing intact), IX, X (Palate elevates to midline), XI (Shoulder shrug intact) and XII (Tongue protrudes to midline) Motor Strength: negative Normal Lower Extremities, Normal Upper Extremities or Pronator Drift Motor Tone: Normal Lower Extremities and Normal Upper Extremities Muscle Bulk/Involuntary Movements: No Involuntary Movements; negative Muscle Atrophy Sensation: Light Touch Intact, Pain/Temperature Intact, Vibration Intact and Proprioception Intact Coordination: Normal; negative Limited Balance, Dysdiadochokinesia, Finger-Nose Abnormal or Heel-Acrter Abnormal Deep Tendon Reflexes: Rt Triceps: 2+, Lt Triceps: 2+, Rt Biceps: 2+, Lt Biceps: 2+, Rt Brachioradialis: 2+, Lt Brachioradialis: 2+, Rt Patellar: 2+, Lt Patellar: 2+, Rt Ankle: 2+ and Lt Ankl e: 2+ Special Tests: negative Babinski Present Gait: Normal Station and Gait Details: Patient is awake and alert, mentation seems slowed although may be baseline, no aphasia, intact language comprehension, follows simple commands, modestly inattentive, no facial droop or cranial nerve abnormality, is modestly slow with movement of the left arm and leg although not definitively hemiparetic or hemiplegic due to neurologic disease. Facility seems symmetric. Patient's weakness seems to have a functional character. She is able to lift both the left arm and leg up out of the bed against gravity. Deep tendon reflexes are normoactive and symmetric, no upper motor neuron signs on examination. Results & Data ([facility]) Vital Signs (Past 12 Hours) Vital Signs Temp Pulse Pulse Resp BP Pulse Ox O2 Del Method 12/13/22 11:48 36.9 C 65 18 99/63 L 96 Room Air 12/13/22 08:00 58 L 12/13/22 06:53 36.2 C L 65 16 96/59 L Room Air 12/13/22 03:42 71 12/13/22 03:39 36.6 C 67 16 99/62 L 96 Room Air Laboratory Results WBC 3.57, hemoglobin 11.5, hematocrit 34.4, MCV 88.9, platelet count 211, sodium 139, potassium 3.6, BUN 11, creatinine 0.58, glucose 99, hemoglobin A1c 5.2, calcium 9.2, magnesium 1.9, AST 21, ALT 24, total CK 46, triglycerides 82, cholesterol 170, LDL 111, VLDL 16, HDL 43, levetiracetam level pending Diagnostic Findings CT of the head, CT venography, CTA of the head and neck, and brain MRI are as described in the HPI, I independently reviewed these images. An echocardiogram reveals normal left ventricular systolic function, no regional wall motion abnormalities, EF 55 to 60%, left atrial size normal. Previous PFO documented on echocardiogram done in May 2022 was referenced. PG Care Time/CCT Total # of Minutes Spent Total Time Spent with Patient: Total time spent is greater than 50% in coordination of care (as documented) at patient's floor/unit and/or counseling patient: 90 minutes Coding Level of Care Code 77852 INT INP/OBS CARE 3/75MIN Diagnoses Seizure disorder G40.909 Left-sided weakness R53.1
[2022-12-13] MEDS ORDERED: STROKE PATIENT DISCHARGE STA (14:58)
--- NOTE | 2022-12-13 15:16 | Discharge Summary ---
Date of Service December 13, 2022 Admission HPI Per Admitting Provider Albina Oliver is a 37-year-old [facility] female with a history of seizure disorder/epilepsy, left-sided weakness, and right-sided breast mass with concern for T10-T12 vertebral body involvement last seen and discharged 05/30/2022 after an admission for seizures with subsequent control with Keppra and follow-up of mass/spine disease suspicious for benign hemangiomas but pending diagnostic mammo-/ultrasound guided biopsy as outpatient who read presents for weakness Prior history of seizure. Patient this morning indicated some chest pain and had a seizure episode 3 days ago with subsequent weakness, and increased w eakness from baseline of her left arm and leg. Does continue to have chronic left arm and left leg pain. Patient has had prolonged symptoms following seizures in the past, but since then fluctuating with significant weakness and inability to feed herself which she does somewhat unusual in severity. She is seen the bedside with her mother present. Patient does follow commands appropriately, offers little spontaneous speech but understands most [place]. Patient is seen with her mother at bedside who is fluent in both [place] and Iranian. Per patient and her mother she has felt more weak since having a seizure 3 days ago. She has been taking her Keppra as directed twice daily with no missing doses. Does not take aspirin norm her mother reports that she became very sleepy and did not respond for approximately 4 hours which prompted them to come into the ER for further evaluation. Her and her mother report that while she has had some residual weakness worsened on the left side around seizure episodes, her current symptoms, level of sedation, and difficulty speaking seem much different than with prior seizure/postictal state. At time of bedside assessment Albina reports that she continues to feel much more weak than normal in both her left arm and left leg. Offers some spontaneous speech in [place], is able to speak Iranian with her mother with slight slowing with no slurring. She denies fever, chills, sweats, nausea, vomiting, shortness of breath, difficulty breathing. Does endorse pain in the center/left of her chest which is much worse with light palpation. She feels her chest pain has not improved significantly in the last 4 to 5 hours. Has not been coughing recently. Denies falls. No tobacco/alcohol use. Takes Keppra. Takes no other medications. Denies medication allergies. CODE STATUS discussed at length with patient and her mother. Patient reports that in the catastrophic circumstance that her heart/breathing were to stop completely she would not want CPR or a breathing tube/resuscitation. Patient recognizes that she is young, but if she were to become so ill that she were to be a cardiac or respiratory arrest she would not want further resuscitation at that time. Her mother is present for this conversation and agrees "no we would not want things like that ". Principal Diagnosis Kade's paralysis Discharge Exam Constitutional WD/WN, vitals as above Eyes PERRL, conjunctivae normal, anicteric sclerae Respiratory normal respiratory effort, lungs clear to auscultation Cardiovascular RRR, no murmur, no edema Gastrointestinal (Abdomen) normal bowel sounds, soft, nontender, no hepatosplenomegaly Musculoskeletal no cyanosis or clubbing, extremities motor strength 5/5 (But moves left side very slowly) Skin no rashes, warm and dry Neurologic PERRL, EOMI, accommodation nl, no face palsy, no dysarthria no focal motor deficits and not confused Speech / Cognition: normal speech Motor/Sensory: + abnormal movement (Slow movements with left sided extremities); no tremor and no pronator drift Psychiatric Orientation: alert, oriented x 3 and cooperative Affect: euthymic affect Discharge Data Allergies Allergy/AdvReac Type Severity Reaction Status Date / Time No Known Allergies Allergy Unverified 06/08/22 09:09 Consultations 12/12/22 11:26 ED Decision to Admit Stat 12/13/22 08:55 Consult Neurology Routine Ordered Studies 12/12/22 09:00 CT head venogram w con Stat CT head/brain wo con Stat 12/12/22 09:29 CT angio head w con Stat CT angio neck with con Stat 12/12/22 13:49 MRI Brain [MR brain wo/w con] Stat Hospital Course (1) Left-sided weakness: Left Sided Numbness/Weakness, ~4 hours of reduced conciousness.? Seizure and postictal state versus TIA/CVA Began at around 4 AM, patient did have reproducible chest pain which has persisted with no EKG changes/negative troponin-likely musculoskeletal from muscle tension Significant worsening of left-sided arm and leg weakness, which did not improve. Does improve slightly with encouragement, but asymmetrically weak compared to the right on admission which is now improved Patient mother reports that she could not speak or get the right words out on the morning of admission Most likely secondary to Kade's paralysis as patient did have a seizure last Saturday, her mother reports that her current symptom severity and initial presentation is much different than with her prior seizure/postictal states Has been taking Keppra, has not missed any doses. No evidence of infection Chemistries, renal function and creatine kinase are all normal High-sensitivity troponin undetectable COVID-19 test is negative CTAhead/neck: Unremarkable CTA of the neck. No occlusion, hemodynamically significant stenosis, aneurysm, dissection, or arteriovenous malformation in the major intracranial arteries. CTvenogram: No acute dural sinus thrombus identified. CThead: No acute intracranial abnormality. CXR: No acute chest disease. EKG: Normal sinus rhythm. No change compared to 2021. QTc 424. No ST segment changes or T wave inversions, no indication of territorial ischemia MRI brain negative Echocardiogram with PFO which is known, otherwise normal Telemetry with normal sinus rhythm only Seen by neurology-appreciate consultation-could be functional in nature versus Kade's paralysis if truly has seizure disorder. She had extensive work-up 6 months ago for similar findings. 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 Recommends increased dose of Keppra to 1000 Mg p.o. twice daily. Follow-up with neurology in the clinic Patent foramen ovale Continue aspirin 81 mg daily for prophylaxis Right breast mass Last seen 2021. With T10-T12 lesions on CT subsequently with follow-up suspicious for benign hemangiomas Followup Diagnostic mammogram 05/30/2022: There is no mammographic evidence of malignancy. No breast masses are seen. A 5 year screening mammogram is recommended.(05/30/2027) These results and recommendations were discussed with the patient and her mother at the time of the exam. Seizure disorder, fluctuating left-sided weakness Last seen for seizures 2021 which recurred in the setting of stopping Keppra Was discharged 2021 on Keppra 750 mg twice daily, has been compliant with this Keppra level pending at time of discharge -Increasing Keppra dose to 1000 Mg p.o. twice daily as above -Follow-up with neurology as an outpatient Stable for discharge to home (2) Seizure disorder: (3) PFO (patent foramen ovale): (4) Breast mass, right: Total Time Total Time Spent Total Time Spent (In Minutes): 45 minutes Total Time Includes: Examination of the Patient, Discharge Planning, Medication Reconciliation and Communication With Other Providers (Neurology) Discharge Plan Discharge Items Patient Disposition: Home - Self-Care Reason For Visit: L WEAKNESS, CHEST PAIN Discharge Diagnosis: Kade's paralysis Condition on Discharge: Fair Activity: Resume your previous activity Non-emergency contact: Primary Care Provider and Neurologist Call non-emergency contact if: you have any medication questions and your symptoms worsen Follow-up/Referrals: Giles Fernandes MD [Physician] - 01/14/23 12:30 pm (Please follow up within 1 month.) Esdras Godfrey DO [Primary Care Provider] - 12/21/22 9:00 am (Follow up within 1-2 weeks.) Diet: Regular Addtl Attending Provider Instructions: You were admitted with lethargy and weakness. This was likely caused by a condition called Kade's paralysis after having a seizure. You improved and will be discharged on a higher dose of your seizure medication. Your Keppra was increased to 1000mg twice a day. There is a chance that your episode was caused by stress which in turn comes out in the form of seizure activity and weakness but is not truly a seizure. You should follow up with the Neurologist within 1 month. Pending Studies at Discharge: No Stand-Alone Forms: My [facility], Smoking Cessation Medications and DC Order Prescriptions: New levetiracetam 1,000 mg tablet 1,000 mg PO BID Qty: 60 2RF Continued aspirin 81 mg Tablet,Delayed Release (Dr/Ec) 81 mg PO QAM Qty: 90 0RF naproxen 500 mg tablet 500 mg PO Q12H PRN (Reason: severe pain) Qty: 30 0RF Discontinued levetiracetam [Keppra] 250 mg tablet 750 mg PO BID Qty: 60 2RF doxycycline monohydrate 100 mg capsule 100 mg PO BID Qty: 42 0RF Discharge Orders: Discharge Order (Routine); Ordered 12/13/22 Ordered By: Shawna Mota Admission Data Admit Date/Time: 12/12/22 12:23 Attending Provider: Shawna Mota Admit Provider: Celestine Xiong Primary Care Provider: Esdras Godfrey Other Providers: Celestine Xiong ; Anthony,Cristóbal Other Interventions: Discharge Summary Assessment (RN) Last Done: 12/13/22 15:09 Coding Level of Care Code 33612 INP/OBS DISCH >30 MIN Diagnoses Left-sided weakness R53.1 Seizure disorder G40.909 PFO (patent foramen ovale) Q21.1 Breast mass, right N63.10
[2022-12-13] MEDS ORDERED: levETIRAcetam 500 MG TAB PO SCH (21:00)
== END 2022-12-13 18:26 | disposition home or self-care (01) | DRG 92 ==
LOC: ED 08:07 → SUATTDRO 12:23 → 2S 12:23